=== PATIENT | female | born 1955 | race Caucasian/White ===

== ENCOUNTER 2022-03-30 13:33 | Outpatient (CLI) | payer MEDICARE, SELFPAY | END 2022-03-30 13:34 | disposition home or self-care (01) | LOC: AMB 04-11 04:43 | PROVIDERS: PCP Family Medicine; Visit Provider Family Medicine | DX: R53.1 Weakness (principal) | CPT/HCPCS: A0998 ==

== ENCOUNTER 2022-07-16 20:00 | Emergency (ER) | payer MEDICARE, SELFPAY ==
[2022-07-16 20:40] VITALS: BP 156/89; PULSE 91; RESP 20; TEMP 36.7; O2SAT 96; BMI 58.6
--- NOTE | 2022-07-16 20:54 | ED_ITS ---
HPI - Dental/Oral General Chief complaint: Dental/Oral/Mouth Injury/Pain Stated complaint: teeth pulled today, still bleeding Time Seen by Provider: 07/16/22 20:49 History of Present Illness HPI Narrative: Pt is a 67 year old woman who had a number of teeth pulled today and was fitted for dentures. Pt was sent home with her dentures in place but is now having bleeding from the extraction sites. Pt was unsure if she should leave her denturs in but is having trouble with the oozing blood. Pt does take aspirin 81 mg daily for DVT prophylaxis. Pt has no lightheadedness, fever, chills, chest pain or shortness of breath. Related Data Home Medications Medication Instructions Recorded Confirmed acetaminophen 500 mg tablet mg PO PRN 04/12/22 04/12/22 allopurinol 100 mg tablet mg PO DAILY 04/12/22 04/12/22 ascorbic acid (vitamin C) PO 04/12/22 04/12/22 aspirin 81 mg chewable tablet 81 mg PO BID 04/12/22 04/12/22 atorvastatin 40 mg tablet mg PO .Bedtime 04/12/22 04/12/22 beclomethasone dipropionate 40 2 inhalation DAILY 04/12/22 04/12/22 mcg/actuation HFA breath activated aerosol cephalexin 500 mg capsule mg PO ONCE 04/12/22 04/12/22 dulaglutide 1.5 mg/0.5 mL 1.5 mg subcut .Every 7 Days 04/12/22 04/12/22 subcutaneous pen injector duloxetine 20 mg capsule,delayed 60 mg PO DAILY 04/12/22 04/12/22 release ferrous sulfate 325 mg (65 mg mg PO DAILY 04/12/22 04/12/22 iron) tablet fluticasone propionate 50 2 intranasal DAILY 04/12/22 04/12/22 mcg/actuation nasal spray,suspension furosemide 20 mg tablet mg PO .Daily At 2:00PM 04/12/22 04/12/22 insulin aspart U-100 100 unit/mL 14 subcut 04/12/22 04/12/22 (3 mL) subcutaneous pen insulin glargine U-300 conc 300 52 unit subcut BID 04/12/22 04/12/22 unit/mL (1.5 mL) subcutaneous pen ketorolac 10 mg tablet mg PO PRN 04/12/22 04/12/22 losartan 50 mg tablet mg PO DAILY 04/12/22 04/12/22 meloxicam 7.5 mg tablet mg PO DAILY 04/12/22 04/12/22 montelukast 10 mg tablet 10 mg PO .Bedtime 04/12/22 04/12/22 oxycodone 5 mg tablet mg PO PRN 04/12/22 04/12/22 pregabalin 100 mg capsule mg PO TID 04/12/22 04/12/22 sennosides 8.6 mg-docusate sodium 1 PO BID 04/12/22 04/12/22 50 mg tablet vitamin A 2,400 mcg capsule 8,000 unit PO DAILY 04/12/22 04/12/22 zinc sulfate 50 mg zinc (220 mg) mg PO DAILY 04/12/22 04/12/22 capsule Previous Rx's Medication Instructions Recorded cephalexin 500 mg capsule 2,000 mg PO ONCE #4 caps 03/01/22 cephalexin 500 mg capsule 2,000 mg PO ONCE #12 caps 03/12/22 Allergies Allergy/AdvReac Type Severity Reaction Status Date / Time adhesive AdvReac Verified 04/12/22 09:35 lisinopril AdvReac Cough Verified 04/12/22 09:35 Penicillins AdvReac Verified 04/12/22 09:35 Sulfa (Sulfonamide AdvReac itchy Verified 04/12/22 09:35 Antibiotics) Review of Systems Status of ROS: Reports: 10 or more systems reviewed and unremarkable except as noted in History and below 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 Brother Prostate cancer Stroke Sister Myocardial infarction High blood pressure Social History Smoking Status: Former smoker Exam Narrative: Exam Narrative: EXAM GENERAL: Patient appears comfortable and well. EYES: No scleral icterus. Oral. Small amount of bleeding noted from extraction sites on her gums. THYROID: no thyroid nodules or thyromegaly. LYMPH: No supraclavicular or cervical lymphadenopathy. SKIN: Visible skin seen during exam normal or with benign process only. EXT: No dependent lower extremity pedal edema. HEART: Regular rate and rhythm with no murmurs, rubs, or gallops. LUNGS: Clear to auscultation bilaterally with no crackles or wheezes. ABD: Soft, non tender, non distended. PSYCH: Good eye contact, speech is not pressured. Const: Vital Signs, click to edit/add: Vital Signs - 24 hr 07/16/22 20:40 Temperature 98.1 F Pulse Rate [Bilate ral Pulse Oximeter ] 91 Respiratory Rate 20 Blood Pressure [Ri ght Upper Arm] 156/89 H Pulse Oximetry 96 Oxygen Delivery Me thod Room Air Course Course Hospital Course: Dentures removed. Direct pressure placed on the bleeding. Vital Signs Vital signs: Initial Vital Signs Temperature 98.1 F 07/16/22 20:40 Temperature Source Temporal Artery Scan 07/16/22 20:40 Pulse Rate 91 07/16/22 20:40 Respiratory Rate 20 07/16/22 20:40 Blood Pressure 156/89 H 07/16/22 20:40 Blood Pressure Mean 111 07/16/22 20:40 Blood Pressure Position Sitting 07/16/22 20:40 Pulse Oximetry 96 07/16/22 20:40 Oxygen Delivery Method 07/16/22 20:40 Vital Signs Temperature 98.1 F 07/16/22 20:40 Pulse Rate 91 07/16/22 20:40 Respiratory Rate 20 07/16/22 20:40 Blood Pressure 156/89 H 07/16/22 20:40 Pulse Oximetry 96 07/16/22 20:40 Oxygen Delivery Method 07/16/22 20:40 Temperature 98.1 F 07/16/22 20:40 Pulse Rate 91 07/16/22 20:40 Respiratory Rate 20 07/16/22 20:40 Blood Pressure 156/89 H 07/16/22 20:40 Pulse Oximetry 96 07/16/22 20:40 Oxygen Delivery Method 07/16/22 20:40 MDM - Dental/Oral MDM Narrative Medical decision making narrative: Pt has bleeding under her new dentures. Dentures removed. Direct pressure placed. Bleeding stopped. Pt will hold aspirin for 3 days. Leave dentures out until bleeding no longer an issue. Pt up to date on her Tdap. Differential Diagnosis Differential diagnosis: Likely gingival abscess, dental abscess and aphthous ulcer Discharge Plan Discharge Clinical Impression: Bleeding gums Patient Disposition: Home, Self-Care Condition: Stable Additional Instructions: Leave dentures out for a few days Direct pressure on bleeding sites Hold Aspirin for 3 days. Activity Level: Activity as Tolerated Discharge Diet: Regular Prescriptions: No Action beclomethasone dipropionate 40 mcg/actuation HFA aerosol breath activated 2 inhalation DAILY insulin glargine U-300 conc 300 unit/mL (1.5 mL) insulin pen 52 unit subcut BID dulaglutide 1.5 mg/0.5 mL pen injector 1.5 mg subcut .Every 7 Days Rx Instructions: pregabalin 100 mg capsule PO TID duloxetine 20 mg capsule,delayed release(DR/EC) 60 mg PO DAILY insulin aspart U-100 100 unit/mL (3 mL) insulin pen 14 subcut Rx Instructions: BREAKFAST AND SUPPER fluticasone propionate 50 mcg/actuation spray,suspension 2 intranasal DAILY furosemide 20 mg tablet PO .Daily At 2:00PM montelukast 10 mg tablet 10 mg PO .Bedtime aspirin 81 mg tablet,chewable 81 mg PO BID ferrous sulfate 325 mg (65 mg iron) tablet PO DAILY meloxicam 7.5 mg tablet PO DAILY acetaminophen 500 mg tablet PO PRN allopurinol 100 mg tablet PO DAILY vitamin A 2,400 mcg capsule 8,000 unit PO DAILY atorvastatin 40 mg tablet PO .Bedtime losartan 50 mg tablet PO DAILY cephalexin 500 mg capsule PO ONCE Rx Instructions: 4 tabs (2 grams) by mouth 1 hour prior to dental appointment ketorolac 10 mg tablet PO PRN oxycodone 5 mg tablet PO PRN Rx Instructions: As needed for pain: 2.5 mg mild-moderate pain, 5 mg severe. Minimize, wean-off, discontinue as soon as possible. sennosides-docusate sodium 8.6-50 mg tablet 1 PO BID Rx Instructions: Hold medication if experiencing loose stools. zinc sulfate 50 mg zinc (220 mg) capsule PO DAILY ascorbic acid (vitamin C) PO cephalexin 500 mg capsule 2,000 mg PO ONCE Qty: 4 3RF Rx Instructions: Take 4 capsules (2000mg) 1 hour prior to dental appointment. cephalexin 500 mg capsule 2,000 mg PO ONCE Qty: 12 2RF Rx Instructions: Take 4 capsules (2000mg) 1 hour prior to dental appointment. Follow Up/Referrals: Alondra Negrete MD [Primary Care Provider] - Stand Alone [facility]: [facility] Info Instructions
[2022-07-16 21:35] VITALS: BP 156/89; PULSE 91; RESP 20; TEMP 36.7
== END 2022-07-16 21:36 | disposition home or self-care (01) ==
LOC: ED 21:13
PROVIDERS: Emergency Provider Internal Medicine; PCP Family Medicine
DX: K91.840 Postprocedural hemorrhage of a digestive system organ or structure following a digestive system procedure (principal); Z79.82 Long term (current) use of aspirin; Z79.4 Long term (current) use of insulin; Z88.8 Allergy status to other drugs, medicaments and biological substances; Z88.0 Allergy status to penicillin; Z88.2 Allergy status to sulfonamides; Z86.718 Personal history of other venous thrombosis and embolism; Z87.891 Personal history of nicotine dependence
CPT/HCPCS: 99282; 99283

== ENCOUNTER 2022-09-04 08:04 | Outpatient (CLI) | payer MEDICARE, SELFPAY | END 2022-09-04 08:05 | disposition home or self-care (01) | LOC: INJ CL 08:05 | PROVIDERS: PCP Family Medicine; Visit Provider Family Medicine | DX: M54.16 Radiculopathy, lumbar region (principal); M51.36 Other intervertebral disc degeneration, lumbar region | CPT/HCPCS: 64483; J1100; Q9966 ==

== ENCOUNTER 2023-02-03 20:25 | Outpatient (CLI) | payer OTHER, SELFPAY | END 2023-02-03 20:26 | disposition home or self-care (01) | LOC: AMB 02-07 09:25 | PROVIDERS: PCP Family Medicine; Visit Provider Family Medicine | DX: M25.551 Pain in right hip (principal) | CPT/HCPCS: A0425; A0429 ==

== ENCOUNTER 2023-02-03 21:01 | Emergency (ER) | payer OTHER, SELFPAY ==
[2023-02-03 21:12] VITALS: BP 123/97; PULSE 72; RESP 16; TEMP 36.6; O2SAT 95; BMI 53.7
--- NOTE | 2023-02-03 21:23 | ED.BACK ---
HPI - Back Pain/Injury General Time Seen by Provider: 21:23 Date Seen: 02/03/23 Chief Complaint: Back Injury/Pain Stated Complaint: Sciatica Time Seen by Provider: 02/03/23 21:23 Source: patient, RN notes reviewed and old records reviewed Limitations: no limitations History of Present Illness HPI Narrative: Patient is a very pleasant 67-year-old female with a history of diabetes, lumbar spinal surgery in 2017 with persistent right footdrop who comes to the emergency room for evaluation regarding right low back and buttock pain. Patient notes that she has been doing very well and has lost 15 lb while walking and working out. She notes that she had a good day today and had no trauma or unusual activity. She was sitting in her easy chair at home and had the sudden onset of right low back and right buttock pain. It radiated into her lower buttock but not into her leg. She notes no numbness or tingling into the leg. She tried to get out of the chair was unable to do so and her family requested EMS to come and assist and thus she was brought here to the emergency room. She states that shins she has been here her pain has improved to a 7/10. She has not had any recent cough cold falls or otherwise. She does use a walker at home. She is requesting a check of her blood sugar as she states with her weight loss she is sometimes having low blood sugars at night. Patient notes lumbar surgery in 2017 and during that surgery there was injury to 1 of her nerves. She notes that she had wear brace because her foot would drop. She does agree that that has greatly improved since she has started walking. Related Data Home Medications Medication Instructions Recorded Confirmed acetaminophen 500 mg tablet mg PO PRN 04/12/22 04/12/22 allopurinol 100 mg tablet mg PO DAILY 04/12/22 04/12/22 ascorbic acid (vitamin C) PO 04/12/22 04/12/22 aspirin 81 mg chewable tablet 81 mg PO BID 04/12/22 04/12/22 atorvastatin 40 mg tablet mg PO .Bedtime 04/12/22 04/12/22 beclomethasone dipropionate 40 2 inhalation DAILY 04/12/22 04/12/22 mcg/actuation HFA breath activated aerosol cephalexin 500 mg capsule mg PO ONCE 04/12/22 04/12/22 dulaglutide 1.5 mg/0.5 mL 1.5 mg subcut .Every 7 Days 04/12/22 04/12/22 subcutaneous pen injector duloxetine 20 mg capsule,delayed 60 mg PO DAILY 04/12/22 04/12/22 release ferrous sulfate 325 mg (65 mg mg PO DAILY 04/12/22 04/12/22 iron) tablet fluticasone propionate 50 2 intranasal DAILY 04/12/22 04/12/22 mcg/actuation nasal spray,suspension furosemide 20 mg tablet mg PO .Daily At 2:00PM 04/12/22 04/12/22 insulin aspart U-100 100 unit/mL 14 subcut 04/12/22 04/12/22 (3 mL) subcutaneous pen insulin glargine U-300 conc 300 52 unit subcut BID 04/12/22 02/03/23 unit/mL (1.5 mL) subcutaneous pen ketorolac 10 mg tablet mg PO PRN 04/12/22 04/12/22 losartan 50 mg tablet mg PO DAILY 04/12/22 04/12/22 meloxicam 7.5 mg tablet mg PO DAILY 04/12/22 04/12/22 montelukast 10 mg tablet 10 mg PO .Bedtime 04/12/22 04/12/22 oxycodone 5 mg tablet mg PO PRN 04/12/22 04/12/22 pregabalin 100 mg capsule mg PO TID 04/12/22 04/12/22 sennosides 8.6 mg-docusate sodium 1 PO BID 04/12/22 04/12/22 50 mg tablet vitamin A 2,400 mcg capsule 8,000 unit PO DAILY 04/12/22 04/12/22 zinc sulfate 50 mg zinc (220 mg) mg PO DAILY 04/12/22 04/12/22 capsule acetaminophen 650 mg 1,300 mg PO BID 02/03/23 02/03/23 tablet,extended release allopurinol 300 mg tablet 300 mg PO DAILY 02/03/23 02/03/23 azelastine 137 mcg (0.1 %) nasal intranasal 02/03/23 spray aerosol blood sugar diagnostic (OneTouch 02/03/23 02/03/23 Verio test strips) buspirone 5 mg tablet 5 mg PO BID 02/03/23 02/03/23 capsaicin 0.075 % topical cream applic topical 02/03/23 (Arthritis Pain Relief (capsaicin)) cyanocobalamin (vitamin B-12) 1,000 mcg PO DAILY 02/03/23 02/03/23 1,000 mcg tablet (Vitamin B-12) dulaglutide 0.75 mg/0.5 mL 0.75 mg subcut 02/03/23 subcutaneous pen injector (Trulicity) duloxetine 60 mg capsule,delayed 60 mg PO DAILY 02/03/23 02/03/23 release loratadine 10 mg tablet 10 mg PO DAILY 02/03/23 02/03/23 pregabalin 150 mg capsule 150 mg PO 3XD 02/03/23 02/03/23 Previous Rx's Medication Instructions Recorded cephalexin 500 mg capsule 2,000 mg (4 x 500 mg) PO ONCE #4 03/01/22 caps cephalexin 500 mg capsule 2,000 mg (4 x 500 mg) PO ONCE #12 03/12/22 caps cephalexin 500 mg capsule 2,000 mg (4 x 500 mg) PO ONCE #4 12/07/22 caps Allergies Allergy/AdvReac Type Severity Reaction Status Date / Time adhesive AdvReac Verified 08/02/22 13:48 lisinopril AdvReac Cough Verified 08/02/22 13:48 Penicillins AdvReac Verified 08/02/22 13:48 Sulfa (Sulfonamide AdvReac itchy Verified 08/02/22 13:48 Antibiotics) UNLISTED ALLERGEN (INCLUDE Allergy Unknown Uncoded 08/02/22 13:48 DETAIL I Review of Systems Status of ROS: Reports: 6 or more systems reviewed and unremarkable except as noted in History and below Const: Reports: change in weight (Weight loss of 15 lb over the past month with exercise); Denies: fever or chills ENMT: Denies: neck pain Cardio: Denies: chest pain or shortness of breath with exertion Resp: Denies: shortness of breath GI: Denies: abdominal pain Musculo: Reports: back pain; Denies: neck pain, extremity pain or extremity swelling PFSH PFS Medical History Encounter for counseling regarding advance directives (08/11/16) ?Z71.89 - Other specified counseling (ICD-10) VTE (venous thromboembolism) (~2005) ?I82.90 - Acute embolism and thrombosis of unspecified vein (ICD-10) Depression ?F32.A - Depression, unspecified (ICD-10) Incontinence ?R32 - Unspecified urinary incontinence (ICD-10) DVT (deep venous thrombosis) ?I82.409 - Acute embolism and thrombosis of unspecified deep veins of unspecified lower extremity (ICD-10) Surgical History 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) ?Z98.890 - Other specified postprocedural states (ICD-10) History of arthroscopy of right shoulder (03/09/19) ?Z98.890 - Other specified postprocedural states (ICD-10) History of reverse total replacement of right shoulder joint (12/12/20) ?Z98.890 - Other specified postprocedural states (ICD-10) History of lumbar fusion ?Z98.1 - Arthrodesis status (ICD-10) History of total right knee replacement (12/18/06) ?Z96.651 - Presence of right artificial knee joint (ICD-10) H/O endoscopy ?Z98.890 - Other specified postprocedural states (ICD-10) History of cholecystectomy ?Z90.49 - Acquired absence of other specified parts of digestive tract (ICD-10) History of appendectomy ?Z90.49 - Acquired absence of other specified parts of digestive tract (ICD-10) History of total left knee replacement (07/17/06) ?Z96.652 - Presence of left artificial knee joint (ICD-10) Family History Mother Congenital heart disease Diabetes Father No problems noted. Brother Prostate cancer Stroke Sister Myocardial infarction High blood pressure Social History Smoking Status: Former smoker Do you use any of these nicotine containing products: None Second hand tobacco smoke exposure: No How often do you have a drink containing alcohol: never How often do you have six or more drinks on one occasion: Never AUDIT-C Alcohol total score: 0 Non-prescribed substance use: denies use service: No Exam Narrative: Exam Narrative: Jessica is alert and oriented. She is in no acute distress lying semi recumbent in room 5 tonight. Externally eyes ears nose clear. No respiratory distress. Abdomen soft. She has some mild tenderness noted over the us posterior superior iliac spine and into the buttock but no pain into the leg. Lower extremities are symmetrical. She has very subtle Gonzalez flexion weakness of the great toe otherwise ankle flexion extension symmetrical bilaterally. Const: Vital Signs, click to edit/add: Vital Signs - 24 hr 02/03/23 21:12 Temperature 97.9 F Pulse Rate [Pulse Oximeter] 72 Respiratory Rate 16 Blood Pressure [Ri ght Forearm] 123/97 H Pulse Oximetry 95 Oxygen Delivery Me thod Room Air Documenting provider has reviewed patient's vital signs: yes Course Course Hospital Course: Patient receptive of acetaminophen which she uses for discomfort. 1000 mg is ordered. Given her history of lumbar spine surgery will obtain x-rays of the lumbar spine and right hip. Reevaluation(s) Reevaluation #1: Patient to noted to be feeling much better. She is seen ambulating with a walker without difficulty and stating she is feeling even better. Vital Signs Vital signs: Initial Vital Signs Temperature 97.9 F 02/03/23 21:12 Temperature Source Temporal Artery Scan 02/03/23 21:12 Pulse Rate 72 02/03/23 21:12 Pulse Rhythm Regular 02/03/23 21:12 Pulse Strength 3+ Normal 02/03/23 21:12 Respiratory Rate 16 02/03/23 21:12 Blood Pressure 123/97 H 02/03/23 21:12 Blood Pressure Mean 105 02/03/23 21:12 Blood Pressure Position Semi-Fowlers 02/03/23 21:12 Pulse Oximetry 95 02/03/23 21:12 Oxygen Delivery Method Room Air 02/03/23 21:12 Vital Signs Temperature 97.9 F 02/03/23 21:12 Pulse Rate 72 02/03/23 21:12 Respiratory Rate 16 02/03/23 21:12 Blood Pressure 123/97 H 02/03/23 21:12 Pulse Oximetry 95 02/03/23 21:12 Oxygen Delivery Method Room Air 02/03/23 21:12 Temperature 97.9 F 02/03/23 21:12 Pulse Rate 72 02/03/23 21:12 Respiratory Rate 16 02/03/23 21:12 Blood Pressure 123/97 H 02/03/23 21:12 Pulse Oximetry 95 02/03/23 21:12 Oxygen Delivery Method Room Air 02/03/23 21:12 MDM - Back Pain/Injury MDM Narrative Medical decision making narrative: 1. Musculoskeletal pain-patient noted to be much improved after Tylenol. She has been up walking with the walker without difficulty. X-rays reassuring at this time. No evidence of radicular symptoms tonight. Recommend continued exercise. Avoid very soft chairs with no lumbar support. Tylenol as needed for discomfort. 2. Type 2 diabetes-normal blood sugar here tonight. Recommend eating prior to bedtime so that it does not fall lower. 3. Disposition-home at this time. Follow-up as planned. Return to the emergency room as needed. Did suggest using a rolled up blanket or towel in the crease of her lawn chair to provide extra lumbar support. Medical Records Attestation: I reviewed the patient's medical records. Imaging Data Lumbar x-ray: Attestation: I have reviewed the pertinent imaging results. My impression: Hardware noted without any acute findings. Radiologist's impression: Five lumbar vertebrae. Left convex lumbar curve. L3-L5 fusion with posterior stabilization hardware, bone graft material, and laminectomies. Fusion appears intact. Disc space narrowing T12-L1, L2-3, L5-S1. Right hip x-ray: Attestation: I have reviewed the pertinent imaging results. My impression: No evidence of fractures. Radiologist's impression: ones: Alignment is normal. No fractures or bone lesions. Internal fixation hardware in the lower lumbar spine. Joint spaces: Unremarkable.? Soft tissues: Unremarkable.? Impression: Negative. Discharge Plan Discharge Clinical Impression: Musculoskeletal back pain Patient Disposition: Home, Self-Care Condition: Improved Additional Instructions: Tylenol as needed for discomfort. Recommend temporary avoidance of lazy Boy chairs or very cushioned sofas. Seek medical attention for worsening symptoms. Follow up as scheduled this week. Return as needed. Prescriptions: No Action beclomethasone dipropionate 40 mcg/actuation HFA aerosol breath activated 2 inhalation DAILY insulin glargine U-300 conc 300 unit/mL (1.5 mL) insulin pen 52 unit subcut BID dulaglutide 1.5 mg/0.5 mL pen injector 1.5 mg subcut .Every 7 Days Rx Instructions: pregabalin 100 mg capsule PO TID duloxetine 20 mg capsule,delayed release(DR/EC) 60 mg PO DAILY insulin aspart U-100 100 unit/mL (3 mL) insulin pen 14 subcut Rx Instructions: BREAKFAST AND SUPPER fluticasone propionate 50 mcg/actuation spray,suspension 2 intranasal DAILY furosemide 20 mg tablet PO .Daily At 2:00PM montelukast 10 mg tablet 10 mg PO .Bedtime aspirin 81 mg tablet,chewable 81 mg PO BID ferrous sulfate 325 mg (65 mg iron) tablet PO DAILY meloxicam 7.5 mg tablet PO DAILY acetaminophen 500 mg tablet PO PRN allopurinol 100 mg tablet PO DAILY vitamin A 2,400 mcg capsule 8,000 unit PO DAILY atorvastatin 40 mg tablet PO .Bedtime losartan 50 mg tablet PO DAILY cephalexin 500 mg capsule PO ONCE Rx Instructions: 4 tabs (2 grams) by mouth 1 hour prior to dental appointment ketorolac 10 mg tablet PO PRN oxycodone 5 mg tablet PO PRN Rx Instructions: As needed for pain: 2.5 mg mild-moderate pain, 5 mg severe. Minimize, wean-off, discontinue as soon as possible. sennosides-docusate sodium 8.6-50 mg tablet 1 PO BID Rx Instructions: Hold medication if experiencing loose stools. zinc sulfate 50 mg zinc (220 mg) capsule PO DAILY ascorbic acid (vitamin C) PO buspirone 5 mg tablet 5 mg PO BID cyanocobalamin (vitamin B-12) [Vitamin B-12] 1,000 mcg tablet 1,000 mcg PO DAILY capsaicin [Arthritis Pain Relief(capsaic)] 0.075 % cream topical (DME) OneTouch Verio test strips Strip MISCELLANEOUS 3XD acetaminophen 650 mg tablet extended release 1,300 mg PO BID allopurinol 300 mg tablet 300 mg PO DAILY azelastine 137 mcg (0.1 %) aerosol,spray INTRANASAL Patient Comments: [NO ORIGINAL SIG] loratadine 10 mg tablet 10 mg PO DAILY duloxetine 60 mg capsule,delayed release(DR/EC) 60 mg PO DAILY pregabalin 150 mg capsule 150 mg PO 3XD Trulicity 0.75 mg/0.5 mL pen injector 0.75 mg subcut cephalexin 500 mg capsule 2,000 mg PO ONCE Qty: 4 3RF Rx Instructions: Take 4 capsules (2000mg) 1 hour prior to dental appointment. cephalexin 500 mg capsule 2,000 mg PO ONCE Qty: 12 2RF Rx Instructions: Take 4 capsules (2000mg) 1 hour prior to dental appointment. cephalexin 500 mg capsule 2,000 mg PO ONCE Qty: 4 3RF Rx Instructions: Take 4 capsules (2000mg) 1 hour prior to dental appointment. Follow Up/Referrals: Alondra Negrete MD [Primary Care Provider] - Stand Alone Forms: [employer] Info Instructions
--- NOTE | 2023-02-03 21:30 | CRLHL7_ITS ---
For Patients: As a result of the Century Cures Act, medical imaging exams and procedure reports are released immediately into your electronic medical record. You may view this report before your referring provider. If you have questions, please contact your health care provider. Indication: Sciatica Technique: Frontal view pelvis, 2 right Comparison: Nine Findings: Bones: Alignment is normal. No fractures or bone lesions. Internal fixation hardware in the lower lumbar spine. Joint spaces: Unremarkable. Soft tissues: Unremarkable. Impression: Negative. Dictated by Iraida Rdz MD @ 02/03/2023 10:44:51 PM (Electronically Signed)
--- NOTE | 2023-02-03 21:30 | CRLHL7_ITS ---
For Patients: As a result of the Cures Act, medical imaging exams and procedure reports are released immediately into your electronic medical record. You may view this report before your referring provider. If you have questions, please contact your health care provider. INDICATION: Sciatica. TECHNIQUE: Three views of the lumbar spine. FINDINGS: Five lumbar vertebrae. Left convex lumbar curve. L3-L5 fusion with posterior stabilization hardware, bone graft material, and laminectomies. Fusion appears intact. Disc space narrowing T12-L1, L2-3, L5-S1. Dictated by Justice Mendez MD @ 02/03/2023 11:01:26 PM (Electronically Signed)
[2023-02-03] MEDS: ACETAMINOPHEN 500 MG TABLET 1000 MG PO (21:41)
--- NOTE | 2023-02-03 22:29 | ED.NURSE ---
Pt assisted to walk around ER using walker. Pt tolerated ambulation and reports feeling much better. Dr. Tirado notified at [id number]. Pt's daughter also called while pt was ambulating and asked for an update. Verbal permission obtained from pt to speak with her daughter. Daughter was updated and all questions answered.
== END 2023-02-03 23:16 | disposition home or self-care (01) ==
PROVIDERS: Emergency Provider Family Medicine; PCP Family Medicine
DX: M54.9 Dorsalgia, unspecified (principal)
CPT/HCPCS: 72100; 73502; 82947; 82962; 99283; 99284; A9270

== ENCOUNTER 2023-11-26 09:07 | Emergency (ER) | payer OTHER, SELFPAY ==
[2023-11-26 09:18] VITALS: BP 147/69; PULSE 79; RESP 20; TEMP 36.6; O2SAT 97; BMI 53.8
--- NOTE | 2023-11-26 10:57 | ED_ITS ---
HPI - General Adult General Date Seen: 11/26/23 Chief complaint: Back Injury/Pain Stated complaint: right side sciatic pain Time Seen by Provider: 11/26/23 10:57 History of Present Illness HPI narrative: patient was triaged but LWBS Related Data Home Medications Medication Instructions Recorded Confirmed acetaminophen 500 mg tablet mg PO PRN 04/12/22 04/12/22 allopurinol 100 mg tablet mg PO DAILY 04/12/22 04/12/22 ascorbic acid (vitamin C) PO 04/12/22 04/12/22 aspirin 81 mg chewable tablet 81 mg PO BID 04/12/22 11/26/23 atorvastatin 40 mg tablet mg PO .Bedtime 04/12/22 04/12/22 beclomethasone dipropionate 40 2 inhalation DAILY 04/12/22 04/12/22 mcg/actuation HFA breath activated aerosol dulaglutide 1.5 mg/0.5 mL 1.5 mg subcut .Every 7 Days 04/12/22 04/12/22 subcutaneous pen injector duloxetine 20 mg capsule,delayed 60 mg PO DAILY 04/12/22 04/12/22 release ferrous sulfate 325 mg (65 mg mg PO DAILY 04/12/22 04/12/22 iron) tablet fluticasone propionate 50 2 intranasal DAILY 04/12/22 04/12/22 mcg/actuation nasal spray,suspension furosemide 20 mg tablet mg PO .Daily At 2:00PM 04/12/22 04/12/22 insulin aspart U-100 100 unit/mL 14 subcut 04/12/22 04/12/22 (3 mL) subcutaneous pen insulin glargine U-300 conc 300 52 unit subcut BID 04/12/22 02/03/23 unit/mL (1.5 mL) subcutaneous pen ketorolac 10 mg tablet mg PO PRN 04/12/22 04/12/22 losartan 50 mg tablet mg PO DAILY 04/12/22 04/12/22 meloxicam 7.5 mg tablet mg PO DAILY 04/12/22 04/12/22 montelukast 10 mg tablet 10 mg PO .Bedtime 04/12/22 11/26/23 oxycodone 5 mg tablet mg PO PRN 04/12/22 04/12/22 pregabalin 100 mg capsule mg PO TID 04/12/22 04/12/22 sennosides 8.6 mg-docusate sodium 1 PO BID 04/12/22 04/12/22 50 mg tablet vitamin A 2,400 mcg capsule 8,000 unit PO DAILY 04/12/22 04/12/22 zinc sulfate 50 mg zinc (220 mg) mg PO DAILY 04/12/22 04/12/22 capsule acetaminophen 650 mg 1,300 mg PO BID 02/03/23 02/03/23 tablet,extended release allopurinol 300 mg tablet 300 mg PO DAILY 02/03/23 02/03/23 azelastine 137 mcg (0.1 %) nasal intranasal 02/03/23 spray aerosol blood sugar diagnostic (OneTouch 02/03/23 02/03/23 Verio test strips) buspirone 5 mg tablet 5 mg PO BID 02/03/23 02/03/23 capsaicin 0.075 % topical cream applic topical 02/03/23 (Arthritis Pain Relief (capsaicin)) cyanocobalamin (vitamin B-12) 1,000 mcg PO DAILY 02/03/23 02/03/23 1,000 mcg tablet (Vitamin B-12) dulaglutide 0.75 mg/0.5 mL 0.75 mg subcut 02/03/23 subcutaneous pen injector (Trulicity) duloxetine 60 mg capsule,delayed 60 mg PO DAILY 02/03/23 11/26/23 release loratadine 10 mg tablet 10 mg PO DAILY 02/03/23 11/26/23 pregabalin 150 mg capsule 150 mg PO 3XD 02/03/23 11/26/23 Previous Rx's Medication Instructions Recorded cephalexin 500 mg capsule 2,000 mg (4 x 500 mg) PO ONCE #4 10/28/23 caps Allergies Allergy/AdvReac Type Severity Reaction Status Date / Time adhesive AdvReac Verified 08/02/22 13:48 lisinopril AdvReac Cough Verified 08/02/22 13:48 Penicillins AdvReac Verified 08/02/22 13:48 Sulfa (Sulfonamide AdvReac itchy Verified 08/02/22 13:48 Antibiotics) UNLISTED ALLERGEN (INCLUDE Allergy Unknown Uncoded 08/02/22 13:48 DETAIL I [facility] Medical History Encounter for counseling regarding advance directives (08/11/16) ?Z71.89 - Other specified counseling (ICD-10) VTE (venous thromboembolism) (~2005) ?I82.90 - Acute embolism and thrombosis of unspecified vein (ICD-10) Depression ?F32.A - Depression, unspecified (ICD-10) Incontinence ?R32 - Unspecified urinary incontinence (ICD-10) DVT (deep venous thrombosis) ?I82.409 - Acute embolism and thrombosis of unspecified deep veins of unspecified lower extremity (ICD-10) Surgical History 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) ?Z98.890 - Other specified postprocedural states (ICD-10) History of arthroscopy of right shoulder (03/09/19) ?Z98.890 - Other specified postprocedural states (ICD-10) History of reverse total replacement of right shoulder joint (12/12/20) ?Z98.890 - Other specified postprocedural states (ICD-10) History of lumbar fusion ?Z98.1 - Arthrodesis status (ICD-10) 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 Brother Prostate cancer Stroke Sister Myocardial infarction High blood pressure Social History Smoking Status: Former smoker Do you use any of these nicotine containing products: None Second hand tobacco smoke exposure: No How often do you have a drink containing alcohol: never How often do you have six or more drinks on one occasion: Never AUDIT-C Alcohol total score: 0 Non-prescribed substance use: denies use service: No Exam Const: Vital Signs, click to edit/add: Vital Signs - 24 hr 11/26/23 09:18 Temperature 98 F Pulse Rate [Pulse Oximeter] 79 Respiratory Rate 20 Blood Pressure [Ri ght Upper Arm] 147/69 H Pulse Oximetry 97 Oxygen Delivery Me thod Room Air Course Vital Signs Vital signs: Initial Vital Signs Temperature 98 F 11/26/23 09:18 Temperature Source Temporal Artery Scan 11/26/23 09:18 Pulse Rate 79 11/26/23 09:18 Respiratory Rate 20 11/26/23 09:18 Blood Pressure 147/69 H 11/26/23 09:18 Blood Pressure Mean 95 11/26/23 09:18 Blood Pressure Position Sitting 11/26/23 09:18 Pulse Oximetry 97 11/26/23 09:18 Oxygen Delivery Method Room Air 11/26/23 09:18 Vital Signs Temperature 98 F 11/26/23 09:18 Pulse Rate 79 11/26/23 09:18 Respiratory Rate 20 11/26/23 09:18 Blood Pressure 147/69 H 11/26/23 09:18 Pulse Oximetry 97 11/26/23 09:18 Oxygen Delivery Method Room Air 11/26/23 09:18 Temperature 98 F 11/26/23 09:18 Pulse Rate 79 11/26/23 09:18 Respiratory Rate 20 11/26/23 09:18 Blood Pressure 147/69 H 11/26/23 09:18 Pulse Oximetry 97 11/26/23 09:18 Oxygen Delivery Method Room Air 11/26/23 09:18 Discharge Plan Discharge Prescriptions: No Action beclomethasone dipropionate 40 mcg/actuation HFA aerosol breath activated 2 inhalation DAILY insulin glargine U-300 conc 300 unit/mL (1.5 mL) insulin pen 52 unit subcut BID dulaglutide 1.5 mg/0.5 mL pen injector 1.5 mg subcut .Every 7 Days Rx Instructions: pregabalin 100 mg capsule PO TID duloxetine 20 mg capsule,delayed release(DR/EC) 60 mg PO DAILY insulin aspart U-100 100 unit/mL (3 mL) insulin pen 14 subcut Rx Instructions: BREAKFAST AND SUPPER fluticasone propionate 50 mcg/actuation spray,suspension 2 intranasal DAILY furosemide 20 mg tablet PO .Daily At 2:00PM montelukast 10 mg tablet 10 mg PO .Bedtime aspirin 81 mg tablet,chewable 81 mg PO BID ferrous sulfate 325 mg (65 mg iron) tablet PO DAILY meloxicam 7.5 mg tablet PO DAILY acetaminophen 500 mg tablet PO PRN allopurinol 100 mg tablet PO DAILY vitamin A 2,400 mcg capsule 8,000 unit PO DAILY atorvastatin 40 mg tablet PO .Bedtime losartan 50 mg tablet PO DAILY ketorolac 10 mg tablet PO PRN oxycodone 5 mg tablet PO PRN Rx Instructions: As needed for pain: 2.5 mg mild-moderate pain, 5 mg severe. Minimize, wean-off, discontinue as soon as possible. sennosides-docusate sodium 8.6-50 mg tablet 1 PO BID Rx Instructions: Hold medication if experiencing loose stools. zinc sulfate 50 mg zinc (220 mg) capsule PO DAILY ascorbic acid (vitamin C) PO buspirone 5 mg tablet 5 mg PO BID cyanocobalamin (vitamin B-12) [Vitamin B-12] 1,000 mcg tablet 1,000 mcg PO DAILY capsaicin [Arthritis Pain Relief(capsaic)] 0.075 % cream topical (DME) OneTouch Verio test strips Strip MISCELLANEOUS 3XD acetaminophen 650 mg tablet extended release 1,300 mg PO BID allopurinol 300 mg tablet 300 mg PO DAILY azelastine 137 mcg (0.1 %) aerosol,spray INTRANASAL Patient Comments: [NO ORIGINAL SIG] loratadine 10 mg tablet 10 mg PO DAILY duloxetine 60 mg capsule,delayed release(DR/EC) 60 mg PO DAILY pregabalin 150 mg capsule 150 mg PO 3XD Trulicity 0.75 mg/0.5 mL pen injector 0.75 mg subcut cephalexin 500 mg capsule 2,000 mg PO ONCE Qty: 4 3RF Rx Instructions: Take 4 capsules (2000mg) 1 hour prior to dental appointment. Follow Up/Referrals: Alondra Negrete MD [Primary Care Provider] -
== END 2023-11-26 11:09 | disposition home or self-care (01) ==
LOC: ED 11:06
PROVIDERS: Emergency Provider Emergency Medicine; PCP Family Medicine
DX: M54.9 Dorsalgia, unspecified (principal)
CPT/HCPCS: 99281

== ENCOUNTER 2023-11-28 17:02 | Outpatient (CLI) | payer OTHER, SELFPAY | END 2023-11-28 17:03 | disposition home or self-care (01) | LOC: AMB 12-02 14:46 | PROVIDERS: PCP Family Medicine; Visit Provider Family Medicine | DX: M54.50 Low back pain, unspecified (principal); M54.16 Radiculopathy, lumbar region | CPT/HCPCS: A0425; A0427 ==

== ENCOUNTER 2023-11-28 17:35 | Emergency (ER) | payer OTHER, SELFPAY ==
[2023-11-28 17:52] VITALS: BP 149/72; PULSE 82; RESP 20; TEMP 37.1; O2SAT 96; BMI 55.7
--- NOTE | 2023-11-28 17:55 | ED.GENADULT ---
HPI - General Adult General Time Seen by Provider: 17:55 Date Seen: 11/28/23 Chief complaint: Extremity Pain/Injury, Lower Stated complaint: R leg pain Time Seen by Provider: 11/28/23 17:40 Source: patient, EMS and RN notes reviewed Mode of arrival: EMS Limitations: no limitations History of Present Illness HPI narrative: This 68-year-old female brought the ambulance in for severe right hip pain. She felt like her foot was maybe dragging earlier. She notes no numbness tingling. She has had the hip bothering her, points that is just the outside of the right hip. It is not radiated down the leg beyond maybe just the mid thigh. No numbness tingling, no bowel or bladder. No fevers or chills. No trauma. She did see her primary care provider, states her hip does show maybe a little degenerative change. She did go to [facility], they thought maybe her L5 nerve root might be impeded on based on x-ray imaging. She had an MRI today in [place] at [facility]. Patient cannot sleep on this hip, it is hurting on the outside of the hip to walk, hurts to sit on the outside of the hip, getting up and lifting the leg hurt on the outside of the hip. Pain is not radiating down the knee or down the leg. Patient did receive 50 mcg IM fentanyl by EMS, this is maybe slightly helped her pain. She has been diagnosed with sciatica. Related Data Home Medications Medication Instructions Recorded Confirmed acetaminophen 500 mg tablet mg PO PRN 04/12/22 04/12/22 allopurinol 100 mg tablet 100 mg PO DAILY 04/12/22 11/28/23 ascorbic acid (vitamin C) PO 04/12/22 04/12/22 aspirin 81 mg chewable tablet 81 mg PO DAILY 04/12/22 11/28/23 atorvastatin 40 mg tablet 40 mg PO .Bedtime 04/12/22 11/28/23 beclomethasone dipropionate 40 2 inhalation DAILY 04/12/22 04/12/22 mcg/actuation HFA breath activated aerosol dulaglutide 1.5 mg/0.5 mL 1.5 mg subcut .Every 7 Days 04/12/22 04/12/22 subcutaneous pen injector duloxetine 20 mg capsule,delayed 20 mg PO DAILY 08/25/22 04/11/24 release ferrous sulfate 325 mg (65 mg mg PO DAILY 04/12/22 04/12/22 iron) tablet fluticasone propionate 50 2 intranasal DAILY 04/12/22 04/12/22 mcg/actuation nasal spray,suspension furosemide 20 mg tablet 20 mg PO BID 04/12/22 11/28/23 insulin aspart U-100 100 unit/mL 14 subcut 04/12/22 04/12/22 (3 mL) subcutaneous pen insulin glargine U-300 conc 300 52 unit subcut BID 04/12/22 02/03/23 unit/mL (1.5 mL) subcutaneous pen ketorolac 10 mg tablet mg PO PRN 04/12/22 04/12/22 losartan 50 mg tablet 50 mg PO DAILY 04/12/22 11/28/23 meloxicam 7.5 mg tablet 7.5 mg PO DAILY 04/12/22 11/28/23 montelukast 10 mg tablet 10 mg PO .Bedtime 04/12/22 11/28/23 oxycodone 5 mg tablet mg PO PRN 04/12/22 04/12/22 pregabalin 100 mg capsule 100 mg PO TID 04/12/22 11/28/23 sennosides 8.6 mg-docusate sodium 1 PO BID 04/12/22 04/12/22 50 mg tablet vitamin A 2,400 mcg capsule 8,000 unit PO DAILY 04/12/22 04/12/22 zinc sulfate 50 mg zinc (220 mg) mg PO DAILY 04/12/22 04/12/22 capsule acetaminophen 650 mg 1,300 mg PO BID 02/03/23 02/03/23 tablet,extended release allopurinol 300 mg tablet 300 mg PO DAILY 02/03/23 02/03/23 azelastine 137 mcg (0.1 %) nasal intranasal 02/03/23 spray aerosol blood sugar diagnostic (OneTouch 02/03/23 02/03/23 Verio test strips) buspirone 5 mg tablet 5 mg PO BID 02/03/23 02/03/23 capsaicin 0.075 % topical cream applic topical 02/03/23 (Arthritis Pain Relief (capsaicin)) cyanocobalamin (vitamin B-12) 1,000 mcg PO DAILY 02/03/23 02/03/23 1,000 mcg tablet (Vitamin B-12) dulaglutide 0.75 mg/0.5 mL 0.75 mg subcut 02/03/23 subcutaneous pen injector (Trulicity) duloxetine 60 mg capsule,delayed 60 mg PO DAILY 02/03/23 11/26/23 release loratadine 10 mg tablet 10 mg PO DAILY 02/03/23 11/28/23 pregabalin 150 mg capsule 150 mg PO 3XD 02/03/23 11/26/23 Previous Rx's Medication Instructions Recorded cephalexin 500 mg capsule 2,000 mg (4 x 500 mg) PO ONCE #4 10/28/23 caps Allergies Allergy/AdvReac Type Severity Reaction Status Date / Time adhesive AdvReac Verified 11/28/23 17:52 lisinopril AdvReac Cough Verified 11/28/23 17:52 Penicillins AdvReac Verified 11/28/23 17:52 Sulfa (Sulfonamide AdvReac itchy Verified 11/28/23 17:52 Antibiotics) Review of Systems Status of ROS: Reports: 6 or more systems reviewed and unremarkable except as noted in History and below [facility] Medical History Fracture of fifth metatarsal bone ?S92.353A - Displaced fracture of fifth metatarsal bone, unspecified foot, initial encounter for closed fracture (ICD-10) Encounter for counseling regarding advance directives (08/11/16) ?Z71.89 - Other specified counseling (ICD-10) VTE (venous thromboembolism) (~2005) ?I82.90 - Acute embolism and thrombosis of unspecified vein (ICD-10) Depression ?F32.A - Depression, unspecified (ICD-10) Incontinence ?R32 - Unspecified urinary incontinence (ICD-10) DVT (deep venous thrombosis) ?I82.409 - Acute embolism and thrombosis of unspecified deep veins of unspecified lower extremity (ICD-10) Surgical History History of arthroscopy of right knee (09/30/95) ?Z98.890 - Other specified postprocedural states (ICD-10) Status post osteotomy (01/04/99) ?Z98.890 - Other specified postprocedural states (ICD-10) History of incision and drainage (01/09/07) ?Z98.890 - Other specified postprocedural states (ICD-10) H/O nasal septoplasty ?Z98.890 - Other specified postprocedural states (ICD-10) 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) ?Z98.890 - Other specified postprocedural states (ICD-10) History of arthroscopy of right shoulder (03/09/19) ?Z98.890 - Other specified postprocedural states (ICD-10) History of reverse total replacement of right shoulder joint (12/12/20) ?Z98.890 - Other specified postprocedural states (ICD-10) History of lumbar fusion (~2016) ?Z98.1 - Arthrodesis status (ICD-10) History of total right knee replacement (12/18/06) ?Z96.651 - Presence of right artificial knee joint (ICD-10) H/O endoscopy ?Z98.890 - Other specified postprocedural states (ICD-10) History of cholecystectomy ?Z90.49 - Acquired absence of other specified parts of digestive tract (ICD-10) History of appendectomy ?Z90.49 - Acquired absence of other specified parts of digestive tract (ICD-10) History of total left knee replacement (07/17/06) ?Z96.652 - Presence of left artificial knee joint (ICD-10) Family History Mother Congenital heart disease Diabetes Father No problems noted. Brother Prostate cancer Stroke Sister Myocardial infarction High blood pressure Social History Smoking Status: Former smoker Do you use any of these nicotine containing products: None Second hand tobacco smoke exposure: No How often do you have a drink containing alcohol: never How often do you have six or more drinks on one occasion: Never AUDIT-C Alcohol total score: 0 Non-prescribed substance use: denies use service: No Exam Const: Vital Signs, click to edit/add: Vital Signs - 24 hr 11/28/23 17:52 Temperature 98.8 F Pulse Rate [Pulse Oximeter] 82 Respiratory Rate 20 Blood Pressure [Le ft Forearm] 149/72 H Pulse Oximetry 96 Oxygen Delivery Me thod Room Air This 68-year-old female is alert, interactive, no apparent distress. She is seen in exam room 7, completely conversive. Pupils equal round, sclera clear, conjugate gaze. Able to speak in complete sentences. Lungs clear, no tachypnea. CV regular rate and rhythm, no murmur. Abdomen is obese but soft. She can lift each leg off the bed and hold for 3 seconds. Her strength throughout her lower extremities including ankle dorsiflexion and plantar flexion, big toe dorsiflexion plantar flexion are 5/5 and symmetric. She does have wraps on her lower extremities for edema. She has normal light touch sensation. She is point tender over her right greater trochanter. I can do range of motion with her hip and knee flexed at 90? and passive range of motion really is not problematic, just feels a little mild pain on the outside of the left hip/lateral hip pain. There is no overlying erythema. Exam seems to be consistent with isolated lateral right hip pain. Documenting provider has reviewed patient's vital signs: yes Course Course ED Course: This 68-year-old female seems to have more localized lateral hip pain consistent with greater trochanter pain syndrome, i.e. historically call trochanteric bursitis. We will see if we can get her MRI report from [facility]. Have discussed with her the possibility of considering injection, she would like to consider this. Reevaluation(s) Time of Reevaluation #1: 19:11 Reevaluation #1: We were unsuccessful in obtaining the MRI report, it has not been read yet. They were unable to get it read this evening. They were able to send images but I am not trained in MRI reading. Patient consent was obtained for injection of the greater trochanter as we really had no other a viable options to try to help her tonight. Risks, benefits and complications were reviewed. Patient does understand that this does have the potential to increase her sugars with her diabetes even if it is a localized injection. She states she watches them closely. Skin was sterilely prepped. Point of maximal tenderness was found with patient lying on her left side with her right hip up. A 20 gauge spinal needle was entered in this area, going down until touching bone, slightly withdrawn and 40 mg of methylprednisone and 5 mL of 1% lidocaine were easily injected. Patient states that she had almost immediate relief of pain. We are going to have the patient rest a bit, see how she ambulates in a while. Hopeful discharge to home if this continues to help. Time of Reevaluation #2: 20:34 Reevaluation #2: Nursing staff did ambulate patient, she did fine, had no hip pain. They did not note any footdrop. She was complaining of her foot turning somewhat, states she does do better when she has her shoes on at home which she does not have here. We are not seeing any footdrop, her motor examination is not revealing any need for any neurosurgical emergency evaluation. We will discharge her to home, await MRI report of her back. Vital Signs Vital signs: Initial Vital Signs Temperature 98.8 F 11/28/23 17:52 Temperature Source Temporal Artery Scan 11/28/23 17:52 Pulse Rate 82 11/28/23 17:52 Respiratory Rate 20 11/28/23 17:52 Blood Pressure 149/72 H 11/28/23 17:52 Blood Pressure Mean 97 11/28/23 17:52 Blood Pressure Position Semi-Fowlers 11/28/23 17:52 Pulse Oximetry 96 11/28/23 17:52 Oxygen Delivery Method Room Air 11/28/23 17:52 Vital Signs Temperature 98.8 F 11/28/23 17:52 Pulse Rate 82 11/28/23 17:52 Respiratory Rate 20 11/28/23 17:52 Blood Pressure 149/72 H 11/28/23 17:52 Pulse Oximetry 96 11/28/23 17:52 Oxygen Delivery Method Room Air 11/28/23 17:52 Temperature 98.8 F 11/28/23 17:52 Pulse Rate 82 11/28/23 17:52 Respiratory Rate 20 11/28/23 17:52 Blood Pressure 149/72 H 11/28/23 17:52 Pulse Oximetry 96 11/28/23 17:52 Oxygen Delivery Method Room Air 11/28/23 17:52 Medications Administered Medications: Discontinued Medications Generic Name Dose Route Start Last Admin Trade Name Freq PRN Reason Stop Dose Admin Lidocaine HCl 5 ml 11/28/23 18:30 11/28/23 19:19 Lidocaine 1% 5 Ml (Pf) 5 Ml Vial INJECTION 11/28/23 18:31 5 ml ONCE ONE Administration Methylprednisolone Sodium Succinate 40 mg 11/28/23 18:28 11/28/23 19:00 Methylprednisolone Sod Succ 40 Mg/Ml IM 11/28/23 18:29 40 mg ONCE ONE Administration Discharge Plan Discharge Clinical Impression: Trochanteric bursitis of right hip Patient Disposition: Home, Self-Care Condition: Stable Instructions: Hip Bursitis (ED) Additional Instructions: Await the MRI results of your back from the ordering facility. For your right hip, can try some ice on the outer aspect, Tylenol 1000 mg 3 times a day as needed for pain management. Do want you to schedule follow-up with your primary care provider within the next week for recheck. Activity Level: Activity as Tolerated Prescriptions: No Action beclomethasone dipropionate 40 mcg/actuation HFA aerosol breath activated 2 inhalation DAILY insulin glargine U-300 conc 300 unit/mL (1.5 mL) insulin pen 52 unit subcut BID dulaglutide 1.5 mg/0.5 mL pen injector 1.5 mg subcut .Every 7 Days Rx Instructions: pregabalin 100 mg capsule 100 mg PO TID duloxetine 20 mg capsule,delayed release(DR/EC) 20 mg PO DAILY insulin aspart U-100 100 unit/mL (3 mL) insulin pen 14 subcut Rx Instructions: BREAKFAST AND SUPPER fluticasone propionate 50 mcg/actuation spray,suspension 2 intranasal DAILY furosemide 20 mg tablet 20 mg PO BID montelukast 10 mg tablet 10 mg PO .Bedtime aspirin 81 mg tablet,chewable 81 mg PO DAILY ferrous sulfate 325 mg (65 mg iron) tablet PO DAILY meloxicam 7.5 mg tablet 7.5 mg PO DAILY acetaminophen 500 mg tablet PO PRN allopurinol 100 mg tablet 100 mg PO DAILY vitamin A 2,400 mcg capsule 8,000 unit PO DAILY atorvastatin 40 mg tablet 40 mg PO .Bedtime losartan 50 mg tablet 50 mg PO DAILY ketorolac 10 mg tablet PO PRN oxycodone 5 mg tablet PO PRN Rx Instructions: As needed for pain: 2.5 mg mild-moderate pain, 5 mg severe. Minimize, wean-off, discontinue as soon as possible. sennosides-docusate sodium 8.6-50 mg tablet 1 PO BID Rx Instructions: Hold medication if experiencing loose stools. zinc sulfate 50 mg zinc (220 mg) capsule PO DAILY ascorbic acid (vitamin C) PO buspirone 5 mg tablet 5 mg PO BID cyanocobalamin (vitamin B-12) [Vitamin B-12] 1,000 mcg tablet 1,000 mcg PO DAILY capsaicin [Arthritis Pain Relief(capsaic)] 0.075 % cream topical (DME) OneTouch Verio test strips Strip MISCELLANEOUS 3XD acetaminophen 650 mg tablet extended release 1,300 mg PO BID allopurinol 300 mg tablet 300 mg PO DAILY azelastine 137 mcg (0.1 %) aerosol,spray INTRANASAL Patient Comments: [NO ORIGINAL SIG] loratadine 10 mg tablet 10 mg PO DAILY duloxetine 60 mg capsule,delayed release(DR/EC) 60 mg PO DAILY pregabalin 150 mg capsule 150 mg PO 3XD Trulicity 0.75 mg/0.5 mL pen injector 0.75 mg subcut cephalexin 500 mg capsule 2,000 mg PO ONCE Qty: 4 3RF Rx Instructions: Take 4 capsules (2000mg) 1 hour prior to dental appointment. Follow Up/Referrals: Alondra Negrete MD [Primary Care Provider] - Stand Alone Forms: [facility] Info Instructions
[2023-11-28] MEDS: METHYLPREDNISOLONE SOD SUCC 40 MG/ML IM (19:00)
[2023-11-28] MEDS: LIDOCAINE 1% 5 ml (pf) 5 ML VIAL INJECTION (19:19)
== END 2023-11-28 20:59 | disposition home or self-care (01) ==
PROVIDERS: Emergency Provider Family Medicine; PCP Family Medicine
DX: M70.61 Trochanteric bursitis, right hip (principal)
CPT/HCPCS: 20610; 82962; 99283; J2919

== ENCOUNTER 2024-02-14 14:17 | Outpatient (RCR) | payer MEDICAID, SELFPAY | END 2025-01-17 10:29 | disposition home or self-care (01) | LOC: MOW 14:17 | PROVIDERS: PCP Family Medicine; Visit Provider Family Medicine | DX: Z76.0 Encounter for issue of repeat prescription (principal) | CPT/HCPCS: S5170 ==

== ENCOUNTER 2024-04-25 11:57 | Emergency (ER) | payer OTHER, SELFPAY ==
[2024-04-25 12:08] VITALS: BP 131/75; PULSE 97; RESP 18; TEMP 36.5; O2SAT 95; BMI 50.6
--- NOTE | 2024-04-25 12:20 | ED_ITS ---
HPI - General Adult General Chief complaint: Diarrhea Stated complaint: Diarrhea Time Seen by Provider: 04/25/24 12:07 History of Present Illness HPI narrative: Patient is a 68-year-old woman who has been having diarrhea intermittently this week. She had 1st 4 days ago and then none for 2 days and then a fzzp-bz-zvrtqmrl diarrhea yesterday and then today a single episode of loose stool. Patient has had no recent travel. She has had no blood in her stool she has no abdominal pain no fevers no chills. She is eating and drinking normally. Patient lives independently. She has had no recent sick contacts. He does not suffer from chronic diarrhea. Again no discomfort and no further symptoms at this time. Related Data Home Medications ?Medication ?Instructions ?Recorded ?Confirmed acetaminophen 500 mg tablet mg PO PRN 04/12/22 04/12/22 allopurinol 100 mg tablet 100 mg PO DAILY 04/12/22 11/28/23 ascorbic acid (vitamin C) PO 04/12/22 04/12/22 aspirin 81 mg chewable tablet 81 mg PO DAILY 04/12/22 11/28/23 atorvastatin 40 mg tablet 40 mg PO .Bedtime 04/12/22 11/28/23 beclomethasone dipropionate 40 2 inhalation DAILY 04/12/22 04/12/22 mcg/actuation HFA breath activated aerosol dulaglutide 1.5 mg/0.5 mL 1.5 mg subcut .Every 7 Days 04/12/22 04/12/22 subcutaneous pen injector duloxetine 20 mg capsule,delayed 20 mg PO DAILY 04/12/22 11/28/23 release ferrous sulfate 325 mg (65 mg mg PO DAILY 04/12/22 04/12/22 iron) tablet fluticasone propionate 50 2 intranasal DAILY 04/12/22 04/12/22 mcg/actuation nasal spray,suspension furosemide 20 mg tablet 20 mg PO BID 04/12/22 11/28/23 insulin aspart U-100 100 unit/mL 14 subcut 04/12/22 04/12/22 (3 mL) subcutaneous pen insulin glargine U-300 conc 300 52 unit subcut BID 04/12/22 02/03/23 unit/mL (1.5 mL) subcutaneous pen ketorolac 10 mg tablet mg PO PRN 04/12/22 04/12/22 losartan 50 mg tablet 50 mg PO DAILY 04/12/22 11/28/23 meloxicam 7.5 mg tablet 7.5 mg PO DAILY 04/12/22 11/28/23 montelukast 10 mg tablet 10 mg PO .Bedtime 04/12/22 11/28/23 oxycodone 5 mg tablet mg PO PRN 04/12/22 04/12/22 pregabalin 100 mg capsule 100 mg PO TID 04/12/22 11/28/23 sennosides 8.6 mg-docusate sodium 1 PO BID 04/12/22 04/12/22 50 mg tablet vitamin A 2,400 mcg capsule 8,000 unit PO DAILY 04/12/22 04/12/22 zinc sulfate 50 mg zinc (220 mg) mg PO DAILY 04/12/22 04/12/22 capsule acetaminophen 650 mg 1,300 mg PO BID 02/03/23 02/03/23 tablet,extended release allopurinol 300 mg tablet 300 mg PO DAILY 02/03/23 02/03/23 azelastine 137 mcg (0.1 %) nasal intranasal 02/03/23 spray blood sugar diagnostic (OneTouch 02/03/23 02/03/23 Verio test strips) buspirone 5 mg tablet 5 mg PO BID 02/03/23 02/03/23 capsaicin 0.075 % topical cream applic topical 02/03/23 (Arthritis Pain Relief (capsaicin)) cyanocobalamin (vitamin B-12) 1,000 mcg PO DAILY 02/03/23 02/03/23 1,000 mcg tablet (Vitamin B-12) dulaglutide 0.75 mg/0.5 mL 0.75 mg subcut 02/03/23 subcutaneous pen injector (Trulicity) duloxetine 60 mg capsule,delayed 60 mg PO DAILY 02/03/23 11/26/23 release loratadine 10 mg tablet 10 mg PO DAILY 02/03/23 11/28/23 pregabalin 150 mg capsule 150 mg PO 3XD 02/03/23 11/26/23 Previous Rx's ?Medication ?Instructions ?Recorded cephalexin 500 mg capsule 2,000 mg (4 x 500 mg) PO ONCE #4 10/28/23 caps loperamide 2 mg capsule (Imodium 2 mg PO QID PRN loose stool #30 04/25/24 A-D) caps Allergies Allergy/AdvReac Type Severity Reaction Status Date / Time adhesive AdvReac Verified 04/25/24 12:12 lisinopril AdvReac Cough Verified 04/25/24 12:12 Penicillins AdvReac Verified 04/25/24 12:12 Sulfa (Sulfonamide AdvReac itchy Verified 04/25/24 12:12 Antibiotics) PFSH PFSH Medical History Fracture of fifth metatarsal bone ?S92.353A - Displaced fracture of fifth metatarsal bone, unspecified foot, initial encounter for closed fracture (ICD-10) Encounter for counseling regarding advance directives (08/11/16) ?Z71.89 - Other specified counseling (ICD-10) VTE (venous thromboembolism) (~2005) ?I82.90 - Acute embolism and thrombosis of unspecified vein (ICD-10) Depression ?F32.A - Depression, unspecified (ICD-10) Incontinence ?R32 - Unspecified urinary incontinence (ICD-10) DVT (deep venous thrombosis) ?I82.409 - Acute embolism and thrombosis of unspecified deep veins of unspecified lower extremity (ICD-10) Surgical History History of arthroscopy of right knee (09/30/95) ?Z98.890 - Other specified postprocedural states (ICD-10) Status post osteotomy (01/04/99) ?Z98.890 - Other specified postprocedural states (ICD-10) History of incision and drainage (01/09/07) ?Z98.890 - Other specified postprocedural states (ICD-10) H/O nasal septoplasty ?Z98.890 - Other specified postprocedural states (ICD-10) 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) ?Z98.890 - Other specified postprocedural states (ICD-10) History of arthroscopy of right shoulder (03/09/19) ?Z98.890 - Other specified postprocedural states (ICD-10) History of reverse total replacement of right shoulder joint (12/12/20) ?Z98.890 - Other specified postprocedural states (ICD-10) History of lumbar fusion (~2016) ?Z98.1 - Arthrodesis status (ICD-10) 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 Brother Prostate cancer Stroke Sister Myocardial infarction High blood pressure Social History Smoking Status: Former smoker Do you use any of these nicotine containing products: None Second hand tobacco smoke exposure: No How often do you have a drink containing alcohol: never How often do you have six or more drinks on one occasion: Never AUDIT-C Alcohol total score: 0 Non-prescribed substance use: denies use service: No Exam Narrative: Exam Narrative: EXAM GENERAL: Patient appears comfortable and well. EYES: No scleral icterus. LYMPH: No supraclavicular or cervical lymphadenopathy. SKIN: Visible skin seen during exam normal or with benign process only. EXT: No dependent lower extremity pedal edema. HEART: Regular rate and rhythm with no murmurs, rubs, or gallops. LUNGS: Clear to auscultation bilaterally with no crackles or wheezes. ABD: Soft, non tender, non distended. PSYCH: Good eye contact, speech is not pressured. Const: Vital Signs, click to edit/add: Vital Signs - 24 hr 04/25/24 12:08 Temperature 97.7 F Pulse Rate [Left P ulse Oximeter] 97 Respiratory Rate 18 Blood Pressure [Ri ght Forearm] 131/75 Pulse Oximetry 95 Oxygen Delivery Me thod Room Air Course Course ED Course: Patient seen and examined. Vital Signs Vital signs: Initial Vital Signs Temperature 97.7 F 04/25/24 12:08 Temperature Source Oral 04/25/24 12:08 Pulse Rate 97 04/25/24 12:08 Respiratory Rate 18 04/25/24 12:08 Blood Pressure 131/75 04/25/24 12:08 Blood Pressure Mean 93 04/25/24 12:08 Blood Pressure Position Sitting 04/25/24 12:08 Pulse Oximetry 95 04/25/24 12:08 Oxygen Delivery Method Room Air 04/25/24 12:08 Vital Signs Temperature 97.7 F 04/25/24 12:08 Pulse Rate 97 04/25/24 12:08 Respiratory Rate 18 04/25/24 12:08 Blood Pressure 131/75 04/25/24 12:08 Pulse Oximetry 95 04/25/24 12:08 Oxygen Delivery Method Room Air 04/25/24 12:08 Temperature 97.7 F 04/25/24 12:08 Pulse Rate 97 04/25/24 12:08 Respiratory Rate 18 04/25/24 12:08 Blood Pressure 131/75 04/25/24 12:08 Pulse Oximetry 95 04/25/24 12:08 Oxygen Delivery Method Room Air 04/25/24 12:08 Medical Decision Making MDM Narrative Medical decision making narrative: Patient is a 68-year-old woman who presents with intermittent diarrhea this week. She has really no in if he can not signs of dehydration her metabolic abnormalities. She states she otherwise feels well has had no further loose stools today as the day has progressed. I do not believe she needs stool study or lab work. I do think she can take a limited amount of Imodium which should help. She has had no recent antibiotic exposure. If she has further difficulties and recommend primary care follow-up. Discharge Plan Discharge Clinical Impression: Loose stools Patient Disposition: Home, Self-Care Condition: Stable Instructions: Acute Diarrhea (ED) Additional Instructions: Continue with hydration Imodium 1 tablet after each loose stool up to 4 times per day Follow-up with your doctor as needed. Activity Level: No Restrictions Discharge Diet: Regular Prescriptions: New loperamide [Imodium A-D] 2 mg capsule 2 mg PO QID PRN (Reason: loose stool) Qty: 30 0RF No Action beclomethasone dipropionate 40 mcg/actuation HFA aerosol breath activated 2 inhalation DAILY insulin glargine U-300 conc 300 unit/mL (1.5 mL) insulin pen 52 unit subcut BID dulaglutide 1.5 mg/0.5 mL pen injector 1.5 mg subcut .Every 7 Days Rx Instructions: pregabalin 100 mg capsule 100 mg PO TID duloxetine 20 mg capsule,delayed release(DR/EC) 20 mg PO DAILY insulin aspart U-100 100 unit/mL (3 mL) insulin pen 14 subcut Rx Instructions: BREAKFAST AND SUPPER fluticasone propionate 50 mcg/actuation spray,suspension 2 intranasal DAILY furosemide 20 mg tablet 20 mg PO BID montelukast 10 mg tablet 10 mg PO .Bedtime aspirin 81 mg tablet,chewable 81 mg PO DAILY ferrous sulfate 325 mg (65 mg iron) tablet PO DAILY meloxicam 7.5 mg tablet 7.5 mg PO DAILY acetaminophen 500 mg tablet PO PRN allopurinol 100 mg tablet 100 mg PO DAILY vitamin A 2,400 mcg capsule 8,000 unit PO DAILY atorvastatin 40 mg tablet 40 mg PO .Bedtime losartan 50 mg tablet 50 mg PO DAILY ketorolac 10 mg tablet PO PRN oxycodone 5 mg tablet PO PRN Rx Instructions: As needed for pain: 2.5 mg mild-moderate pain, 5 mg severe. Minimize, wean-off, discontinue as soon as possible. sennosides-docusate sodium 8.6-50 mg tablet 1 PO BID Rx Instructions: Hold medication if experiencing loose stools. zinc sulfate 50 mg zinc (220 mg) capsule PO DAILY ascorbic acid (vitamin C) PO buspirone 5 mg tablet 5 mg PO BID cyanocobalamin (vitamin B-12) [Vitamin B-12] 1,000 mcg tablet 1,000 mcg PO DAILY capsaicin [Arthritis Pain Relief(capsaic)] 0.075 % cream topical (DME) OneTouch Verio test strips Strip MISCELLANEOUS 3XD acetaminophen 650 mg tablet extended release 1,300 mg PO BID allopurinol 300 mg tablet 300 mg PO DAILY azelastine 137 mcg (0.1 %) aerosol,spray INTRANASAL Patient Comments: [NO ORIGINAL SIG] loratadine 10 mg tablet 10 mg PO DAILY duloxetine 60 mg capsule,delayed release(DR/EC) 60 mg PO DAILY pregabalin 150 mg capsule 150 mg PO 3XD Trulicity 0.75 mg/0.5 mL pen injector 0.75 mg subcut cephalexin 500 mg capsule 2,000 mg PO ONCE Qty: 4 3RF Rx Instructions: Take 4 capsules (2000mg) 1 hour prior to dental appointment. Follow Up/Referrals: Alondra Negrete MD [Primary Care Provider] - Stand Alone Forms: [facility] Info Instructions
== END 2024-04-25 13:02 | disposition home or self-care (01) ==
LOC: ED 12:30
PROVIDERS: Emergency Provider Internal Medicine; PCP Family Medicine
DX: R19.7 Diarrhea, unspecified (principal)
CPT/HCPCS: 99283

== ENCOUNTER 2024-04-28 09:18 | Outpatient (CLI) | payer OTHER, SELFPAY | END 2024-04-28 09:19 | disposition home or self-care (01) | LOC: INJ CL 09:20 | PROVIDERS: PCP Family Medicine; Visit Provider Family Medicine | DX: M54.16 Radiculopathy, lumbar region (principal); M51.36 Other intervertebral disc degeneration, lumbar region | CPT/HCPCS: 64483; J1100; Q9966 ==

== ENCOUNTER 2024-12-10 22:14 | Emergency (ER) | payer OTHER, SELFPAY ==
--- OUTSIDE RECORDS SUMMARY | 2024-12-10 22:16 | XMS_ITS | Clinical Summary ---
Author Organization [facility] Address [address] , [address] [place] [address] Phone Care Team Providers Care Supervisor [employer] Name Role Phone Print, Print Unavailable Conditions or Problems Problem Name Problem Code Onset Date Status Entry Date Provider Comment Standard Description Annotate Cancer metastatic to bone 76900630 (SNOMED CT) 10/12 Resolved 10/12 Marcela Hicks PA-C Metastatic malignant neoplasm to bone Cancer metastatic to bone 50388051 (SNOMED CT) 10/12 Removed 10/12 Shruthi Cluka [employer]DBOARD COATING MACHINE OPERATOR (AAMA) Metastatic malignant neoplasm to bone Kidney mass 095743392 (SNOMED CT) 10/12 Active 10/12 Shruthi Cluka HARDBOARD COATING MACHINE OPERATOR (AAMA) Renal mass Abnormal magnetic resonance imaging (MRI) 253021249 (SNOMED CT) 10/12 Active 10/12 Shruthi Cluka HARDBOARD COATING MACHINE OPERATOR (AAMA) MRI scan abnormal Low back pain, chronic 832754392 (SNOMED CT) 09/27 Active 09/27 Rosy Button-Jackie gher HARDBOARD COATING MACHINE OPERATOR Chronic low back pain Lumbar radiculopat hy, right 139826918 (SNOMED CT) 09/27 Active 09/27 Rosy Button-Jackie gher HARDBOARD COATING MACHINE OPERATOR Lumbar radiculopathy Diabetic peripheral neuropathy associated with type 2 diabetes mellitus [id number] 07 (SNOMED CT) 10/31 Active 10/31 Elise Mancuso PA-C Peripheral neuropathy due to type 2 diabetes mellitus Leg pain 65212484 (SNOMED CT) 10/04 Active 10/04 Nathan Brock MD Pain in lower limb [facility], [facility] 10/04 Active 10/04 Nathan Brock MD Carpal tunnel syndrome Medications Medication Instructions Start Date Stop Date Generic Name NDC Provider DULOXETINE HCL 60 MG CPEP TAKE ONE CAPSULE BY MOUTH EVERY DAY duloxetine [id number] Marcela MUNGUIA-Letitia DULOXETINE HCL 60 MG CPEP TAKE ONE CAPSULE BY MOUTH ONCE DAILY duloxetine 46531240283 Marcela MUNGUIA-[place] DULOXETINE HCL 60 MG CPEP 60 mg by mouth once a day duloxetine 95248322446 Zofia MUNGUIA-Letitia DULOXETINE HCL 60 MG CPEP TAKE ONE CAPSULE BY MOUTH EVERY DAY duloxetine 09592006284 Zofia Fernandez PA-C PREGABALIN 150 MG CAPS Take 1 cap (150 mg) by mouth three times a day. pregabalin 50894586025 Marcela Hicks PA-C PREGABALIN 150 MG CAPS TAKE ONE CAPSULE BY MOUTH THREE TIMES A DAY pregabalin 06043014600 Nathan Brock MD PREGABALIN 150 MG CAPS Take 1 cap (150 mg) by mouth three times a day. pregabalin 16073032861 Marcela Hicks PA-C PREGABALIN 100 MG CAPS pregabalin 06515449378 Nathan Brock MD DULOXETINE HCL 30 MG CPEP duloxetine 29064405203 Nathan Brock MD DULOXETINE HCL 60 MG CPEP 60 mg by mouth once a day duloxetine 43568179095 Nathan Brock MD DULOXETINE HCL 20 MG CPEP duloxetine 74248655894 Nathan Brock MD FLUOXETINE HCL 20 MG CAPS fluoxetine 86579268224 Nathan Brock MD LOSARTAN POTASSIUM-HCTZ 50-12.5 MG TABS losartan-hydroc hlorothiazide 06740800138 Nathan Brock MD Novolog U-100 Insulin aspart 100 unit/mL solution insulin aspart u-100 [id number] Ntahan Brock MD ATORVASTATIN CALCIUM 40 MG TABS atorvastatin 46429968621 Nathan Brock MD LANTUS SOLOSTAR 100 UNIT/ML SOPN insulin glargine 98179310945 Nathan Brock MD FERROUS SULFATE 325 (65 Fe) MG TABS ferrous sulfate 13973314333 Nathan Brock MD AMLODIPINE BESYLATE 5 MG TABS amlodipine 55525246743 Nathan Brock MD METFORMIN HCL 1000 MG TABS metformin 87592712011 Nathan Brock MD GABAPENTIN 300 MG CAPS 600 mg TID gabapentin 76667650560 Nathan Brock MD FLUOXETINE HCL 40 MG CAPS fluoxetine 45876878344 Nathan Brock MD TRULICITY 0.75 MG/0.5ML SOAJ dulaglutide 30378262477 Nathan Brock MD LYRICA 50 MG CAPS 1 cap by mouth two times per day for diabetic peripheral neuropathy. pregabalin 79981481378 Nathan Brock MD TRULICITY 3 MG/0.5ML SOAJ dulaglutide 55394654630 Nathan Brock MD TOUJEO SOLOSTAR 300 UNIT/ML SOPN insulin glargine u-300 conc 59734913814 Nathan Brock MD FEROSUL 325 (65 Fe) MG TABS ferrous sulfate 36212051862 Nathan Brock MD PREGABALIN 100 MG CAPS pregabalin 56794998211 Nathan Brock MD DULOXETINE HCL 20 MG CPEP duloxetine 74808733439 Nathan Brock MD DULOXETINE HCL 30 MG CPEP duloxetine 91536424712 Nathan Brock MD FLUOXETINE HCL 20 MG CAPS fluoxetine 56762607250 Nathan Brock MD FUROSEMIDE 20 MG TABS furosemide 33594941631 Nathan Brock MD aspirin 81 mg tablet,chewable aspirin 10246295728 Nathan Brock MD LORATADINE 10 MG TABS loratadine 58426319274 Nathan Brock MD FLUTICASONE PROPIONATE 50 MCG/ACT SUSP fluticasone propionate 06651490612 Nathan Brock MD AZELASTINE HCL 0.1 % SOLN azelastine 15881617148 Nathan Brock MD MONTELUKAST SODIUM 10 MG TABS montelukast 83203050102 Nathan Brock MD ALLOPURINOL 100 MG TABS allopurinol 51108075032 Nathan Brock MD LOSARTAN POTASSIUM 50 MG TABS losartan 64607969478 Nathan Brock MD ATORVASTATIN CALCIUM 40 MG TABS atorvastatin 83822324147 Nathan Brock MD LYRICA 50 MG CAPS 1 cap by mouth two times per day for diabetic peripheral neuropathy. PREGABALIN 71640985604 Elise Mancuso PA-C GABAPENTIN 300 MG CAPS 600 mg TID GABAPENTIN 85545468872 Nathan Brock MD GABAPENTIN 300 MG CAPS 1 cap by mouth three times per day for peripheral neuropathy. GABAPENTIN 64611326019 Elise Mancuso PA-C LOSARTAN POTASSIUM-HCTZ 50-12.5 MG TABS LOSARTAN POTASSIUM-HCTZ 12835265352 Nathan rBock MD AMLODIPINE BESYLATE 5 MG TABS AMLODIPINE BESYLATE 27780747733 Nathan Brock MD NOVOLOG 100 UNIT/ML SUBCUTANEOUS SOLUTION INSULIN ASPART 49085844338 Nathan Brock MD METFORMIN HCL 1000 MG TABS METFORMIN HCL 56053696391 Nathan Brock MD FLUOXETINE HCL 40 MG CAPS FLUOXETINE HCL 20333926427 Nathan Brock MD ATORVASTATIN CALCIUM 40 MG TABS ATORVASTATIN CALCIUM 62476539696 Nathan Brock MD TRULICITY 0.75 MG/0.5ML SOAJ DULAGLUTIDE 72644921350 Nathan Brock MD LANTUS SOLOSTAR 100 UNIT/ML SOPN INSULIN GLARGINE 30714112871 Nathan Brock MD GABAPENTIN 300 MG CAPS GABAPENTIN 88125806693 Nathan Brock MD FERROUS SULFATE 325 (65 Fe) MG TABS FERROUS SULFATE 28170998897 Nathan Brock MD Medications Administered No information available. Allergies, Adverse Reactions, Alerts Allergy Name Reaction Description Start Date Severity Statu s Provider SULFA Moderate Active Nathan Brock MD PENICILLIN Moderate Active Nathan Brock MD LISINOPRIL Mild Active Nathan Brock MD Results Date Name Value Unit Range Flag Description Office Visit: UPPER/LOWER EX T [place]INGL[place] 10/04/15 07:44- 10/04/15 07:44 RE... SMOK STATUS former smoker Tob acco smoking status Internal Other: Authorizatio n - OBS PTSTAUTHDT done PT Startin g Authorization Date Lab Report: FERRITIN FERRITIN 112 ng/mL 20-288 N Ferritin [Mass/volume] in Serum or Plasma Office Visit: NATALIE, fax FALLRSKASSES Patient queried about falls and response documented. Fall risk assessment Lab Report: 06/22/20 - PH, URINE 6.5 PH, URINE EGFR NOT AFA 44 mL/min/1. 73m2 Glomerular filtration rate/1.73 sq M.predicted among non-blacks [Volume Rate/Area] in Serum, Plasma or Blood by Creatinine-based formula (MDRD) LEUES Trace Leukocyte est erase [Presence] in Urine by Test strip CA 10.3 mg/dL Calcium [Mass/volume] in Serum or Plasma KETONES UA Negative mg/dL Ketones [Mass/volume] in Urine by Test strip ABSOLUTE BAS normal 10*3/uL Basophil s [#/volume] in Blood URBC None Seen /[HPF] Erythrocyte s [#/area] in Urine sediment by Microscopy high power field GFR 54 mL/min Glomerular filtration rate/1.73 sq M.predicted among non-blacks [Volume Rate/Area] in Serum, Plasma or Blood by Creatinine-based formula (MDRD) BLD STL Negative Hemoglobin.g astroi ntestinal [Presence] in Stool CO2 TOTAL 29 mmol/L carbon diox rosa, serum, total GLUCOSE SER 245 mg/dL Glucose [Mass/volume] in Serum or Plasma UA COLOR Yellow Color of Uri ne BUN/CREAT 20 Urea nitrogen/Creatinin e [Mass Ratio] in Serum or Plasma CREATININE U 0.17 mL/min Creatini ne [Mass/volume] in Urine BACTERIA URN Few Bacteria [#/area] in Urine sediment by Microscopy high power field WBCS MICRO U 0-2 {Cells}/[ HPF] WBC urine on microscopy NITRITE URN Negative Nitrite [Presence] in Urine by Test strip MCV 91 fL MCV [Entitic volume] by Automated count ANION GAP 11 Anion gap 4 in Serum or Plasma SODIUM 142 mmol/L Sodium [Moles/volume] in Serum or Plasma HGB 14.4 g/dL Hemoglobin [Mass/volume] in Blood URIC ACID 7.0 mg/dL Urate [Mass/volume] in Serum or Plasma POTASSIUM 4.5 mmol/L Potassium [Moles/volume] in Serum or Plasma HGBA1C 8.1 % Hemoglobin A1c/Hemoglobin, total in Blood - % CREATININE 1.21 mg/dL Creatinine [Mass/volume] in Serum or Plasma CHLORIDE 102 mmol/L Chloride [Moles/volume] in Serum or Plasma BUN 24 mg/dL Urea nitrogen [Mass/volume] in Serum or Plasma Internal Other: Verbal Autho rization/Emergency Contact - OBS VERBAL_EMER DONE Verbal authorization and emergency contact Office Visit: Office Visit 3 -4m flup r/s from 12/29 MEDS REVIEW Done Documenta tion of current medications (procedure) Internal Other: Authorizatio n - OBS [email or web address] Yes Authoriza tion: Release of Information - Authorize [facility] - Payment and Healthcare Operations ROIAUTHOTHER Yes Authoriz ation: Release of Information - Authorize Others/Insurance - Payment and Healthcare Operations HIECONSENT Yes Consent To Release information to the Health Information Exchange (HIE) [email or web address] Yes Authorizat ion: Authorization for [facility] to leave messages, voicemail, send text messages, send emails AUTHRELHCARE Yes Authoriz ation: Release/Retrieval of Information to/from Healthcare Facilities, Pharmacy Benefit Payers and Providers AUTHPRIVPRAC Yes Authoriz ation: Notice of privacy practices AUTHBENEFIT Yes Authoriza tion: Assignment of Benefits and Payment Agreement Plan of Care Type Date Detail Pending order Physical Therapy Pending order EPI-Lumbar Epidu ral Steroid Injection Pending order Follow up [facility] Pending order Instructions for Staff Pending order Follow up [facility] Pending order Physical Therapy Pending order EPI-Lumbar Epidu ral Steroid Injection Pending order EPI-Lumbar Epidu ral Steroid Injection Pending Order exclud ed from report: Pending order EPI-Lumbar Epidu ral Steroid Injection Pending order EPI-Lumbar Epidu ral Steroid Injection Pending order Follow up Pending order Other Referral Pending order Physical Therapy Pending order Follow up Pending order MRI-Lumbar W/O Pending order EMG bilateral lo w ext Pending order Follow up [facility] af ter testing Pending order EMG bilateral lo w ext Pending order Follow up Pending order Follow up Pending Order exclud ed from report: Pending order Follow up Pending order Patient Instruct ions Pending order Follow up Pending order Patient Instruct ions Pending order Ferritin Serum Pending order Ferritin Serum Pending order Patient Notifica tion Pending order Other Test Pending order Patient Instruct ions Pending order Transition of Ca re Referral Procedures Code Procedure Name Date Entry Date ORDERS Instructions for Staff 02/05 [id number] EPI-Lumbar Epidural Steroid Injection 202 09/24/19 [id number] EPI-Lumbar Epidural Steroid Injection 202 09/23/29 [facility]-[id number] Documentation of current medicatio ns ORDERS Follow up [id number] Other Referral ORDERS Physical Therapy ORDERS Follow up [id number] MRI-Lumbar W/O ORDERS Follow up [facility] after testing ORDERS EMG bilateral low ext 08/22 CPT-62612 Nerve Conduction 7-8 studies CPT-76131 EMG with NCS (5+ muscles) - 1 limb 09/13 CPT-26472 EMG with NCS (4 or fewer muscles) - 1 kim b [facility]-[id number] Documentation of current medicatio ns ORDERS Follow up ORDERS Follow up ORDERS Patient Instructions ORDERS Patient Instructions [facility]-[id number] Documentation of current medicatio ns ORDERS Ferritin Serum ORDERS Follow up ORDERS Patient Instructions [facility]-[id number] Documentation of current medicatio ns ORDERS Patient Notification ORDERS Transition of Care Referral [facility]-[id number] Other Test ORDERS Ferritin Serum Vital Signs Date Name Value Unit Description Height 62.01 [in_us] height E&M BMI (Body Mass Index) 56.52 kg/m2 Bod y Mass Index (Ratio) Body Temperature 36.39 [degF] temperat ure E&M BP Diastolic 79 mm[Hg] blood pressu re, diastolic BP Systolic 136 mm[Hg] blood pressur e, systolic Heart Rate 71 /min pulse rate Respiratory Rate 20 /min respirat ory rate E&M Weight Measured 140.161 kg weight in kilograms E&M Weight Measured 272 [lb_av] weight E& M Weight Measured 272 [lb_av] weight E& M Immunizations No information available. Advance Directives No information available.
--- OUTSIDE RECORDS SUMMARY | 2024-12-10 22:17 | XMS_ITS | Clinical Summary ---
Author Organization [facility] Address [address] [place] [address] Care Team Providers Care Student Development Dean Name Role Phone BkRangel stearns Unavailable Unavailable Alondra Negrete MD Primary Care Provider Kathy Campo RN Unavailable [phone] ChemYanet zacarias RN Unavailable Aliyah Hillman RN Unavailable Allergies Active Allergy Reactions Criticality Noted Date Comments Adhesive Tape Rash 12/30/2007 Lisinopril Cough 05/25/2010 Intolerance Penicillins Hives 12/30/2007 Sulfa (Sulfonamide Antibiotics) Hives,Itching 0 12/30/2007 Unlisted Allergen (Include D etail In Comments) Hives Low 11/03/2020 Medications blood-glucose meterIndications: Diabetes mellitus with peripheral circulatory disorder, controlled (HC) Dispense meter, test strips, lancets covered by pt ins. E11.9 IDDM type II - Test 2 times/day. 1 Device 020 Active clindamycin (CLEOCIN) 300 mg capsule 600 mg by mouth prior to dental appointment 21 capsule 020 Active ONETOUCH DELICA PLUS LANCET 33 gauge miscIndications:I nsulin dependent type 2 diabetes mellitus, uncontrolled USE TO TEST THREE TIMES A DAY DIRECTED 100 Each 2 020 Active nystatin (MYCOSTATIN) creamIndications: Yeast infection of the skin Apply topically to affected area(s) 2 times daily. 60 g 3 022 Active durable medical equipment (DME)Indications: Essential hypertension Automated blood pressure cuff for home use. Length of need 99. 1 Each 022 Active acetaminophen SR (TYLENOL ARTHRITIS) 650 mg Extended-Release tabletIndications :Lumbar foraminal stenosis 1-2 oral twice daily as needed. Max acetaminophen dose: 4000mg in 24 hrs. 120 Tablet 5 022 Active CaneIndications:S ranjit stenosis, lumbar region, without neurogenic claudication Wide Base Quad Cane for home use.(Pt requesting Hurry Cane) Length of need 99. 1 Each 022 Active durable medical equipment (DME)Indications: Spinal stenosis, lumbar region, without neurogenic claudication 4 wheeled walker. Current walker is broken and unrepairable. Length of need 99. Patient has ongoing/lifetim e need of 4 wheeled walker due to spinal stenosis. 1 Each 022 Active azelastine 137 mcg/actuation (ASTELIN) nasal sprayIndications: Seasonal allergic rhinitis, unspecified trigger Inhale 2 Sprays into affected nostril(s) two times daily. 10 mL 3 022 Active capsaicin 0.075% topical (ZOSTRIX-HP) 0.075 % topical creamIndications: Diabetic polyneuropathy associated with type 2 diabetes mellitus (HC) Apply topically to affected area(s) three times daily. 57 g 3 023 Active Blood Pressure Monitor KitIndications:HT N (hypertension) Frequency of testing: daily Large cuff. For home use, length of need 99 1 Each 024 Active Diabetic ShoeIndications:D iabetes mellitus with peripheral circulatory disorder, controlled (HC) As directed. 1 Each 024 Active acetaminophen (TYLENOL EXTRA STRGTH) 500 mg tabletIndications :Chronic right-sided low back pain with right-sided sciatica Take 1-2 Tablets (500-1,000 mg) by mouth every 6 hours if needed for Pain. Max acetaminophen dose: 4000mg in 24 hrs. 150 Tablet 3 Active nystatin powder (MYCOSTATIN) powderIndications :Yeast infection of the skin Apply 1 Strip topically to affected area(s) three times daily. 60 g 5 024 Active glucose (TRUEplus Glucose) 4 gram chewable tabletIndications :Type 2 diabetes mellitus with diabetic polyneuropathy, with long-term current use of insulin (HC) Chew 1 Tablet (4 g) by mouth each time if needed for Blood Gluc < 60 mg/dL. 30 Tablet 6 024 Active Shower ChairIndications: Spinal stenosis, lumbar region, without neurogenic claudication For home use. 1 Each 024 Active miscellaneous medical supply miscIndications:L ymphedema of both lower extremities Velcro lymphedema wraps - knee high - 30-40mmHg 1 left leg, 1 right leg 2 unit 024 Active lancetsIndication s:Type 2 diabetes mellitus with diabetic polyneuropathy, with long-term current use of insulin (HC) Test 3 times per day. 100 Each 3 024 Active losartan (COZAAR) 50 mg tabletIndications :HTN (hypertension) Take 1 Tablet (50 mg) by mouth once daily. 90 Tablet 3 Active continuous glucose monitor SENSOR KIT (FreeStyle Laurent 2 Sensor)Indication s:Controlled type 2 diabetes mellitus with complication, with long-term current use of insulin (HC) To be used to read blood sugars per registered occupational therapist's directions. 6 Each 3 024 Active atorvastatin (LIPITOR) 40 mg tabletIndications :Mixed hyperlipidemia TAKE ONE TABLET BY MOUTH EVERY DAY 90 Tablet 3 024 Active blood sugar diagnostic (OneTouch Ultra Test) stripIndications: Type 2 diabetes mellitus without complication, with long-term current use of insulin (HC) TEST THREE TIMES DAILY DIRECTED 300 Each 3 024 Active tirzepatide (MOUNJARO) 15 mg/0.5 mL penIndications:Ty pe 2 diabetes mellitus without complication, with long-term current use of insulin (HC) Inject 15 mg subcutaneous once weekly. 6 mL 3 024 Active CPAPIndications:O SA (obstructive sleep apnea) CPAP machine for home use at pressure 4-15 cmw, nasal mask x1/3month with nasal cushion x2/mo 1 Each 11 024 Active montelukast (SINGULAIR) 10 mg tabletIndications :Seasonal allergies Take 1 Tablet (10 mg) by mouth at bedtime. 90 Tablet 2 024 Active loratadine (CLARITIN) 10 mg tabletIndications :Seasonal allergies Take 1 Tablet (10 mg) by mouth once daily. 90 Tablet 2 024 Active Diabetic ShoeIndications:D iabetes mellitus with peripheral circulatory disorder, controlled (HC) As directed. Diabetic shoes for home use. Length of need 99 1 Each 025 Active durable medical equipment (DME)Indications: Spinal stenosis, lumbar region, without neurogenic claudication,Danielle pheral sensory neuropathy Grab bars for shower. For home use, length of need 99 2 Each 025 Active insulin glargine U-300 (Toujeo SoloStar U-300 Insulin) 300 unit/mL (1.5 mL) penIndications:Co ntrolled type 2 diabetes mellitus with complication, with long-term current use of insulin (HC) Inject 62 units subcutaneous before breakfast. 20 mL 3 025 Active fluticasone (50 mcg per actuation) nasal solution (FLONASE)Indicati ons:Allergic rhinitis, unspecified seasonality, unspecified trigger Inhale 2 Sprays in both nostrils once daily. 18.2 mL 025 Active DULoxetine (CYMBALTA) 60 mg Delayed-release capsuleIndication s:Chronic midline low back pain with right-sided sciatica Take 1 Capsule (60 mg) by mouth once daily. Managed by neurology 90 Capsule 2 025 Active allopurinoL (ZYLOPRIM) 300 mg tabletIndications :Gout, unspecified cause, unspecified chronicity, unspecified site Take 1 Tablet (300 mg) by mouth once daily. 90 Tablet 1 025 Active pen needle (UltiCare Pen Needle) 29 gauge x 1/2 (disposable insulin pen needle)Indication s:Diabetes mellitus without complication (HC),Diabetes mellitus with peripheral circulatory disorder, controlled (HC) USE TO ADMINISTER INSULIN AT HOME DIRECTED. 400 Each 3 025 Active insulin aspart (U-100) (NovoLOG Flexpen U-100 Insulin) 100 unit/mL (3 mL) penIndications:Co ntrolled type 2 diabetes mellitus with complication, with long-term current use of insulin (HC) INJECT 25 UNITS BEFORE EACH MEAL 60 mL 025 Active pregabalin 150 mg capsuleIndication s:Peripheral sensory neuropathy Take 1 Capsule (150 mg) by mouth two times daily. 60 Capsule 025 Active furosemide 20 mg tabletIndications :Edema of both legs TAKE 2 TABLETS BY MOUTH EVERY MORNING AND TAKE 1 TABLET BY MOUTH IN THE AFTERNOON AT 2:00PM DIRECTED 270 Tablet 025 Active aspirin chewable 81 mg chewable tabletIndications :Diabetes mellitus with peripheral circulatory disorder, controlled (HC),Stage 3 chronic kidney disease, unspecified whether stage 3a or 3b CKD (HC) CHEW & SWALLOW 1 TABLET BY MOUTH DAILY WITH FOOD 90 Tablet 3 025 Active busPIRone 5 mg tabletIndications :Anxiety TAKE 1 TABLET BY MOUTH TWICE A DAY 180 Tablet 1 025 Active cyanocobalamin 1,000 mcg tabletIndications :Diabetic polyneuropathy associated with type 2 diabetes mellitus (HC),B12 deficiency TAKE 1 TABLET BY MOUTH DAILY 90 Tablet 2 025 Active Incontinence Pad, Liner, Disp (Prevail Pads) padsIndications:M ixed stress and urge urinary incontinence USE THE PADS THREE TIMES A DAY NEEDED FOR URINARY INCONTINENCE 132 Each 3 025 Active aspirin chewable 81 mg chewable tabletIndications :Diabetes mellitus with peripheral circulatory disorder, controlled (HC),Stage 3 chronic kidney disease, unspecified whether stage 3a or 3b CKD (HC) Chew 1 Tablet (81 mg) by mouth once daily with a meal. 90 Tablet 3 024 2024 Discontinued furosemide (LASIX) 20 mg tabletIndications :Edema of both legs TAKE 2 TABLETS BY MOUTH EVERY MORNING AND TAKE 1 TABLET AT 2 IN THE AFTERNOON DIRECTED 270 Tablet 3 024 2024 Discontinued insulin aspart, U-100, (NovoLOG Flexpen U-100 Insulin) 100 unit/mL (3 mL) penIndications:Co ntrolled type 2 diabetes mellitus with complication, with long-term current use of insulin (HC) INJECT 25 UNITS BEFORE EACH MEAL 30 mL 3 024 2024 Discontinued(R eorder (E-cancel not sent)) cyanocobalamin (Vitamin B-12) 1,000 mcg tabletIndications :Diabetic polyneuropathy associated with type 2 diabetes mellitus (HC),B12 deficiency Take 1 Tablet (1,000 mcg) by mouth once daily. 90 Tablet 2 024 2024 Discontinued Incontinence Pad, Liner, Disp (Prevail Pads) padsIndications:M ixed stress and urge urinary incontinence Use pads three times a day as needed for urinary incontinence 132 Each 3 024 2024 Discontinued pregabalin (LYRICA) 150 mg capsuleIndication s:Peripheral sensory neuropathy Take 1 Capsule (150 mg) by mouth two times daily. 180 Capsule 3 024 2024 Discontinued(* Availability/F ormulary change/Cost of medication) busPIRone (BUSPAR) 5 mg tabletIndications :Anxiety TAKE ONE TABLET (5 MG) BY MOUTH TWICE DAILY 180 Tablet 1 024 2024 Discontinued Active Problems Problem Noted Date Diagnosed Date Sensorineural hearing loss, bilateral 07/09/2022 LARRY 01/04/2022 AHI- 13.7 02/21/2022 Sarcoid 12/07/2021 Overview (12/07/2021): Found in lumbar spine, minimal lung disease. No need for treatment per pulmonary as of 2021 Closed nondisplaced fracture of fifth metatarsal bone of right foot with routine healing 08/29/2019 Acute idiopathic gout of left hand 05/14/2019 Incontinence of urine in female 02/10/2018 Overview (02/10/2018): Has pads/ pullups Controlled substance agreement terminated 2017 Overview (09/02/2017): Controlled substances no longer needed. Pain improved. Acquired spondylolisthesis 09/12/2016 Trigger finger 09/11/2016 History of pulmonary embolus (PE) 09/11/2016 Overview (09/11/2016): In 2003 provoked following left total knee arthroplasty CKD (chronic kidney disease) stage 3, GFR 30-59 ml/min 09/11/2016 Diabetic polyneuropathy asso ciated with type 2 diabetes mellitus 10/03/2015 Pulmonary nodule 06/08/2015 Overview (06/08/2015): 05/2015, ED CT. 3 month f/u recommended. Complex renal cyst 12/29/2014 CTS (carpal tunnel syndrome) 08/27/2012 Overview (08/27/2012): Wears splints at bedtime Iron (Fe) deficiency anemia 11/14/2011 Overview (02/11/2012): Colonoscopy 08/2011 normal repeat in 10 years Improved and stable. 02/11/2012 Diabetes mellitus with perip heral circulatory disorder, controlled 06/11/2011 Overview (06/11/2011): Form completed for therapeutic shoes. 06/11/2011 Spondylolisthesis of lumbar region 05/28/2011 Spinal stenosis, lumbar lamar on, without neurogenic claudication 05/28/2011 Actinic keratosis 05/15/2011 Overview (05/15/2011): Face Routine general medical exam ination at a health care facility 11/03/2010 Overview (05/26/2012): Normal Angiogram 06/2009 at [place]. Negative Nuclear Stress Test 04/2012 colonoscopy reportedly within normal limits approximately 2004 in [place], [place] 11/03/2010 Unspecified essential hypertension 11/03/2010 Mixed hyperlipidemia 05/25/2010 Osteoarthritis of spine 05/25/2010 Overview (05/25/2010): S/P Epidural Injections: short term benefit in 2008. Morbid obesity 05/25/2010 Lesion of plantar nerve 12/30/2007 Resolved Problems Problem Noted Date Diagnosed Date Resolved Date New onset atrial fibrillation 09/08/2021 11/22/2021 Spinal stenosis, lumbar lamar on, without neurogenic claudication 09/12/2016 12/09/2017 Microalbuminuria 05/26/2012 03/01/2016 Overview (05/26/2012): Started Losartan 25 milligram at bedtime 05/26/2012 CTS (carpal tunnel syndrome) 11/14/2011 02/11/2012 Overview (12/05/2011): Mild: reverses with movement. Given wrist splints 12/05/2011 PUSTULE NONMALIGNANT 01/29/2011 016 Overview (01/29/2011): Recurrent on Buttocks: worse in warm weather. 01/29/2011 Skin lesion of face 09/06/2010 03/01/20 16 DIABETES 07/10/2002 03/01/2016 Encounters Date Type Department Care Team Description 12/10/2024 1:15 PM CDT Office Visit [facility] [address] [place] [address] Lara Bui PA Derm Problem (Red toes) 12/10/2024 Telephone [facility] [address] [place] [address] Arslan Rosa DPM Appointment Request 12/09/2024 Travel 12/08/2024 1:20 PM CDT Telemedicine [facility] [address] [place] [address] Lara Bui PA Derm Problem (Foot) 12/08/[address] [address] Alondra Negrete MD Refill Request (Prevail Pads) 12/08/[address] [address] Alondra Negrete MD Refill Request (Pregabalin, Furosemide, Aspirin Chewable, Buspirone, Cyanocobalamin) 12/08/2024 Travel 12/07/2024 Travel 11/25/2024 Travel 11/16/[address] [address] Alondra Negrete MD Medication Management 11/16/[address] [address] Alondra Negrete MD Medication Management (insulin aspart, U-100, (NovoLOG Flexpen U-100 Insulin) 100 unit/mL (3 mL) pen/) 11/02/2024 9:40 AM CDT Ancillary Procedure [address] [address] 11/02/[address] [address] Alondra Negrete MD Results (mammogram ) 11/02/[address] [address] Alondra Negrete MD Refill Request (Ulticare Pen Needle) 11/01/2024 Travel 10/27/[address] [address] Alondra Negrete MD Refill Request (Allopurinol) 10/23/2024 Travel 10/08/[address] [address] Aisha Borden MD Medication Problem 10/08/2024 Nurse Triage [address] [address] Alondra Negrete MD Medication Problem 10/08/2024 Nurse Triage [address] [address] Alondra Negrete MD 09/29/[address] [address] Alondra Negrete MD Refill Request (Duloxetine) 09/25/2024 9:30 AM CUSTOMS GUARD Telemedicine [facility] [address] [place] [address] Jocelyn Cabrera PA Telehealth (Sinus symptoms) 09/25/2024 Travel 09/21/2024 11:20 AM CUSTOMS GUARD Telemedicine [facility] [address] [place] [address] Jocelyn Cabrera PA Telehealth (Sinus symptoms) 09/21/2024 Travel 09/17/2024 Telephone [facility] [address] [facility] [place] [address] Alondra Negrete MD Medication Management (Clarification needed. ) 09/12/2024 Travel from Last 3 Months Immunizations Immunization Administration Dates Next Due AMB Influenza, IIV4 PF (=>6 mos Flulaval,Fluzone Fluarix)(Flu Clinic Only) 06/12/2016 COVID-19 VACCINE SPIKEVAX (M ODERNA 50MCG/0.5ML) 12YO+ PFS 05/16/2023 COVID-19 vaccine (Moderna 100mcg/0.5mL) PF, MDV 11/27/2021,06/21/2021,10/12/2020,09/14 COVID-19 vaccine (Pfizer-Bio NTech 30mcg/0.3mL) 12YO+ BIVALENT PF, MDV 02/14/2023,05/07/2022 HepA-HepB (Twinrix) 02/04/2013,12/01/2012 Hepatitis A, Unspecified 02/04/2013,12/01/2012 Hepatitis B (Peds) 05/05/2013 Hepatitis B, Unspecified 05/05/2013,02/04/2013,0 12/01/2012 Influenza A (H1N1), Inactiva matt (Age >=3 Years) 06/21/2009 Influenza Virus, Unspecified 05/19/2008 Influenza, High-dose Inactivated 06/19/2011 Influenza, High-dose Quadriv alent Inactivated 05/10/2021 Influenza, IIV3 (Age 6-35 mos) 3,04/27/2013,04/30/2011,06/11 Influenza, IIV3 (Age >=3 years) 05/14/20 12,04/30/2011,05/30/2010,06/16,08/19/2007,06/29/2005 Influenza, IIV4 05/20/2018, 7,06/12/2016,05/02,05/13/2014,04/27/2014 Influenza, Inactivated AIIV4 (Age 65+ Years) Preserv Free 04/27/2024,05/06/2023,05/07/2022,05/04 Influenza, Inactivated IIV3 (Age 65+ Years) Preserv Free 04/23/2019 Pneumococcal Poly,23-Valent (Pneumovax) 07/30/2019,06/19/2011,08/19/2007,06/11,05/19/2004 Pneumococcal conj 13-Valent (Prevnar 13) 07/25/2018,11/27/2017 RSV, Recombinant ADJ Reconst ituted (Arexvy 120MCG/0.5mL) 05/08/2023 Tdap 05/29/2021,06/19/2011,10/25/2008 Zoster (Shingrix-RZV, recombinant) 01/30/2018, Zoster (Zostavax-ZVL, live) 01/11/2015, 4,08/27/2013 Family History Medical History Relation Name Comments Cancer-prostate Brother 1 Rex Cancer Brother 2 Dante Pancreatic: jus t 3 months to live 01/2011 Arthritis Brother 3 Jesse s/p bilateral k nee replacement and planned for RAFAEL Cancer-prostate Brother 3 Jesse Stroke Brother 4 Bony Heart attack Brother 5 Evans Aneurysm Brother 6 Oral abdominal Diabetes Mother Libby Heart failure Mother Libby Blood Disease Sister 1 Samantha Knee Surgery: Blood Clot after Other Sister 1 Samantha COPD Diabetes Sister 2 Cheryl Dementia Sister 3 Elissa Diabetes Sister 3 Elissa Heart Disease Sister 3 Elissa CABG: CAD Lung cancer Sister 4 Fanny Anesthesia Problem No Family History Cancer-breast No Family History Cancer-ovarian No Family History Relation Name Status Comments Brother 1 Rex Alive Brother 2 Dante (Age 71) Brother 3 Jesse Alive Brother 4 Bony (Age 73) Brother 5 Evans (Age 50s) Pneumonia Brother 6 Oral Alive Father Hernan (Age 72) Mother Libby (Age 62) Sister 1 Samantha Alive Sister 2 Cheryl Sister 3 Elissa Sister 4 Fanny Social History Tobacco Use Types Packs/Day Years Used Date Smoking Tobacco: Former Cigarettes 0.5 27.2 0 12/17/1970 - 03/06/1998 Smokeless Tobacco: Never Tobacco Cessation:Counseling Given: Yes Alcohol Use Standard Drinks/Week Comments No 0 (1 standard drink = 0.6 oz pur e alcohol) PHQ-2 Answer Date Recorded PHQ-2 TOTAL SCORE 0 05/11/2024 Social Connections Answer Date Recorded Do you often feel lonely or isolated from those around you? 0 02/12/2024 Financial Resource Strain Answer Date R ecorded Difficulty of Paying Living Expenses 3 02/12/2024 Difficulty of Paying Living Expenses Not on file 02/12/2024 Food Insecurity Answer Date Recorded Do you worry your food will run out before you are able to buy more? 1 02/12/2024 Transportation Needs Answer Date Record ed Does lack of transportation keep you from medica l appointments? 1 02/12/2024 Does lack of transportation keep you from work, meetings or getting things that you need? 1 02/12/2024 Housing Stability Answer Date Recorded What is your housing situation today? 1 02/12/2024 Utilities Answer Date Recorded Do you have trouble paying f or utilities (for example, heat, electricity, water, phone)? 1 02/12/2024 Comments No Sex and Gender Information Value Date Recorded Sex Assigned at Not on file Legal Sex Female 5:20 AM CUSTOMS GUARD Gender Identity Not on file Sexual Orientation Not on file Occupation Industry Job Start Date Job End Date DISABLED Not on file Not on file Not on file Obstetrics History Para Term AB IAB SAB Ectopic Multiple Livin g Live Births 3 3 3 Date Outcome GA Total Labor Labor/2nd/3rd Weight Sex Type Anes PTL Gloria A1 A5 Name Clin Para Para Para Last Filed Vital Signs Vital Sign Reading Time Taken Comments Blood Pressure 129/82 12/10/2024 1:09 PM CDT Pulse 78 12/10/2024 1:09 PM CDT Temperature 36.6 C (97.8 F) 04/06/2024 10:14 AM CDT Respiratory Rate 18 11/28/2021 3:34 PM CDT Oxygen Saturation 96% 12/10/2024 1:09 PM CDT Inhaled Oxygen Concentration - - Weight 122.5 kg (270 lb) 06/03/2024 10:47 AM CDT Height 154.9 cm (5' 1) 05/11/2024 1:28 PM CDT Body Mass Index 51.02 05/11/2024 1:28 PM CDT Plan of Treatment Upcoming Encounters Date Type Department Care Team (Late st Contact Info) Description 12/17/2024 1:30 PM CDT Office Visit [facility] [place] [address] [facility] [address] [place] [id number] Arslan Rosa, GRA[place] [address] [place] [address] Health Maintenance Due Date Last Done Comments COVID-19 vaccine series ( season) 2024 04/27/2024, 05/16/2023, 02/14/2023, Additional history exists Fecal testing sDNA-FIT ([place] guard) for age 45-75 12/24/2024 12/24/2021, 12/24/2021 BMI (ht and wt on same day) for age 18+ 05/11/2025 05/11/2024, 02/12/2024, 12/04/2023, Additional history exists Medicare Wellness for age 65+ 05/12/2025, 05/06/2023, 12/07/2021, Additional history exists Depression screening for age 12+ 05/13/2025 05/13/2024, 05/13/2024, 05/13/2024, Additional history exists Mammogram for age 45-75 11/02/2025 11/03/19, 10/24/2023, 06/11/2022, Additional history exists Lipids for age 45-75 12/27/2027 12/26/2022, 09/08/2021, 02/23/2020, Additional history exists Tetanus booster 05/29/2031 05/29/2021, 11/0 08/2010, 10/25/2008 Zoster (shingles) series for age 50+ Completed 01/30/2018, 11/05/2017, 01/11/2015, Additional history exists Hepatitis C screening for ag e 18-79 Completed 07/20/2019 Pneumococcal series for age 50+ Completed 07/30/2019, 07/25/2018, 11/27/2017, Additional history exists Tdap Completed 05/29/2021, 1108/2010, 10/25/2008 RSV vaccine for adults or Completed 05/08/2023 Influenza Vaccine Completed 04/27/2024, , 05/07/2022, Additional history exists DEXA/DXA scan for age 65+ Completed 2023, 08/21/2018, 02/23/2011 Medical Devices Implanted Type Area Cryptologic Support Specialist Device Identifier Shelf Expiration Date Model / Serial / Lot Murray Lmbr 70x5.5mm Tsrh 3d Cvd Titnm - [id number] Implanted:Qty: 2 on 09/12/2016 by Grzegorz Echavarria MBChB at [facility] Spine Implants N/A: Spine Medtronic Spine/Ortho [id number]# / / [id number] one 1-4mm 30cc Medtronic Chips Canclls Frozen Implanted:Qty: 1 on 09/12/2016 by Grzegorz Echavarria MBChB at [facility] Explanted:at [facility] (Quantity not on file) N/A: Spine Medtronic Spine/Ortho 01/08/2019 [id number]# / [id number] / [id number] one 1-4mm 30cc Medtronic Chips Canclls Frozen Implanted:Qty: 1 on 09/12/2016 by Grzegorz Echavarria MBChB at [facility] Explanted:at [facility] (Quantity not on file) N/A: Spine Medtronic Spine/Ortho 01/12/2019 [id number]# / [id number] / Dura Neuro 1x1in Duragen Plus Non-Sut - [id number] Implanted:Qty: 1 on 09/12/2016 by Grzegorz Echavarria MBChB at [facility] N/A: Spine Integra Lifesciences Naa 05/18/2019 [id number] / / [id number] Screw Lmbr Tsrh 3dx - [id number] Implanted:Qty: 6 on 09/12/2016 by Grzegorz cEhavarria MBChB at [facility] N/A: Spine Medtronic Spine/Ortho [id number]# / / Cnnctr Lmbr Sm Tsrh 3dx Offsettitnm - [id number] Implanted:Qty: 6 on 09/12/2016 by Grzegorz Echavarria MBChB at [facility] N/A: Spine Medtronic Spine/Ortho [id number]# / / Screw Lmbr Post 6.5x40mm Ts 3dx Og Thin Va - [id number] Implanted:Qty: 6 on 09/12/2016 by Grzegorz Echavarria MBChB at [facility] N/A: Spine Medtronic Spine/Ortho [id number] / / Procedures Procedure Name Priority Date/Time Associated Diagnosis Comments XR MAMMO JAMES BILAT SCREEN Routine 11/02/2024 9:41 AM CDT Encounter for screening mammogram for malignant neoplasm of breast XR DXA BONE DENSITY 1 SITE AXIAL AND 1 SITE PERIPHERAL Routine 06/10/2024 9:22 AM CDT Menopause LIPID PANEL W REFLEX MEASURED LDL Routine 12/26/2022 8:45 AM CDT Type 2 diabetes mellitus with diabetic polyneuropathy, with long-term current use of insulin (HC) FECAL DNA (AKA COLOGUARD) Routine 12/24/2021 12:00 AM CDT Screening for colon cancer ANTI HCV Routine 07/20/2019 3:33 PM CUSTOMS GUARD Need for hepatitis C screening test from Last 3 Months or Most Recently Relevant to Health Maintenance Results * XR MAMMO JAMES BILAT SCREEN (11/02/2024 9:41 AM CDT) Anatomical Region Laterality Modality BREASTS, Breast Left, Breast Right Bilateral Mammography Impressions 11/02/2024 2:23 PM CDT There is no radiographic evidence for malignancy. Recommend annual mammograms. MAMMOGRAM ASSESSMENT: ACR 1 Negative PATIENTS: You will also receive a letter with your examination results in an easy to read format. If you have questions about your results, please contact your referring provider. Narrative 11/02/2024 2:23 PM CDT For Patients: As a result of the Century Cures Act, medical imaging exams and procedure reports are released immediately into your electronic medical record. You may view this report before your referring provider. If you have questions, please contact your health care provider. XR MAMMO JAMES BILAT SCREEN [[id number]] CLINICAL HISTORY: This is an asymptomatic 69 y.o. patient. INDICATION FOR EXAM: Mammogram Screening. TECHNIQUE: CC and MLO views were obtained. This study was evaluated with the assistance of Computer-Aided Detection. Breast Tomosynthesis was used in interpretation. COMPARISON FILM: Yes 10/24/23 [facility]stream 06/11/22 [facility]stream FINDINGS: There are scattered areas of fibroglandular density. There are no dominant masses, suspicious micro calcifications or areas of architectural distortion. us Alondra Negrete MD MAMMO Final R esult * XR DXA BONE DENSITY 1 SITE AXIAL AND 1 SITE PERIPHERAL (06/10/2024 9:22 AM CDT) Anatomical Region Laterality Modality LUMBAR SPINE Other Impressions 06/12/2024 4:10 PM CDT Normal bone density. RECOMMENDATIONS: The National Osteoporosis Foundation recommends pharmacologic treatment for patients with T-scores of -2.5 or less, patients with prior history of fragility fractures, or patients with 10-year probability of greater than 3% at hips or greater than 20% of suffering major osteoporotic fractures. Recommend continued optimization of calcium and vitamin D intake through dietary means and/or supplementation and regular exercise. Repeat scan recommended in 3-5 years. Cydney Smith PA-C [facility] 06/12/2024 Narrative 06/12/2024 4:10 PM CDT For Patients: Results are automatically released to your Qstream ([employer]) account once available, in compliance with federal regulations. This means that you may see your results before your provider has had a chance to review them. Please allow 2-3 business days for your provider to comment on the results. XR DXA Bone Mineral Density (BMD) EXAM LOCATION: [facility] [address] [facility] [address] PATIENT NAME: Jessica Gutiérrez DATE OF : 1955 EXAM DATE: 06/10/2024 REQUESTING PROVIDER: Alondra Negrete MD GENDER AT : female HEIGHT: 5' 1 (05/11/2024) WEIGHT: 270 lb (06/03/2024) MENOPAUSAL STATUS: Postmenopausal RACE/ETHNICITY: White RISK FACTORS: Smoking (prior) and White Race CURRENT MEDICATION FOR BONE LOSS: NONE INDICATION: Post-Menopause and Follow-up of normal DXA COMPARISON DATE(S): 2018 DXA scans are compared to prior studies for a patient only when the two (or more) studies were performed on the same scanner. It is not possible to compare data generated on one scanner to data from another because there are not standards in DXA equipment. This applies even if the two scanners are made by the same registered occupational therapist. PROCEDURE: Dual-energy x-ray absorptiometry performed with routine technique. Reporting is completed in the form of a T-score. The T-score represents the standard deviation from peak bone mass based on young healthy adult. A Z-score is used for diagnosis in premenopausal women, and for men under the age of 50. FINDINGS: RESULTS FEMUR Left femoral neck BMD: 1.066 g/cm2 T-Score: + 0.2 Z-Score: + 1.2 Change from prior in 2019: Decrease 0.7%. Right femoral neck BMD: 1.130 g/cm2 T-Score: + 0.7 Z-Score: + 1.6 Change from prior in 2019: Increase 1.6%. Left hip BMD: 1.023 g/cm2 T-Score: + 0.1 Z-Score: + 0.8 Change from prior in 2019: Decrease 6.1%. Right hip BMD: 1.003 g/cm2 T-Score: + 0.0 Z-Score: + 0.6 Change from prior in 2019: Decrease 8.0%. RESULT FOREARM Left Forearm distal radius BMD: 0.811 g/cm2 T-Score: + 2.3 Z-Score: + 4.2 Change from prior in 2019: Decrease 3.8%. WHO criteria: Normal: T-score at or above -1 SD Osteopenia: T-score between -1.1 and -2.4 SD Osteoporosis: T-score at or below -2.5 SD us Alondra Negrete MD DEXA Final R esult * (ABNORMAL) LIPID PANEL W REFLEX MEASURED LDL (12/26/2022 8:45 AM CDT) CHOLESTEROL,TOTAL 182 mg/dL 023 9:20 PM CDT [facility] Comment: Cholesterol, Total Reference Ranges Desirable <200 mg/dL Borderline 200-239 mg/dL High >=240 mg/dL TRIGLYCERIDES 145 <150 mg/dL 12/26/2022 9:20 PM CDT [facility] HDL CHOLESTEROL 39(L) >40 mg/dL 9:20 PM CDT [facility] NON-HDL CHOLESTEROL 143 <145 mg/dl 12/26/2022 9:20 PM CDT [facility] CHOL/HDL RATIO 4.67(H) <4.50 12/26/2022 9:20 PM CDT [facility] LDL CHOLESTEROL 114 <=130 mg/dL 12/26/2022 9:20 PM CDT [facility] VLDL CHOLESTEROL 29 <=30 mg/dL 12/26/2022 9:20 PM CDT [facility] PROVIDER ORDERED STATUS RANDOM 12/26/2022 9:20 PM CDT [facility] Blood BLOOD SPECIMEN / Unknown Venipuncture / Unknown 12/26/2022 8:45 AM CDT 12/26/2022 8:49 AM CDT us Alondra Negrete MD CHEMISTRY Final R esult [facility] [address] [place] [address], [place] * FECAL DNA (AKA COLOGUARD) (12/24/2021 12:00 AM CDT) us Alondra Negrete MD COMMUNICATION ORD Edite d Result - Final * ANTI HCV (07/20/2019 3:33 PM CUSTOMS GUARD) HEPATITIS C ANTIBODY Non-React tashi Non-React tashi 07/21/2019 2:13 PM CUSTOMS GUARD [facility] Comment:Antibodies to HCV no t detected; does not exclude the possibility of exposure to HCV. Blood BLOOD SPECIMEN / Unknown Venipuncture / Unknown 07/20/2019 3:33 PM CUSTOMS GUARD 07/20/2019 3:33 PM CUSTOMS GUARD us Alondra Negrete MD SEND OUTS Final R esult [facility] 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 Expl anation POLST 03/25/2019 10:48 AM GIGI BERNSTEIN, 03/24/19 Healthcare Directive 09/14/2016 2:33 PM ELOISA LEÓN, 08/11/2016 * Full Code (Latest Code Status on File) Date Activated Date Inactivated Comments 09/12/2016 7:25 PM 09/15/2016 12:58 PM * Full Code Date Activated Date Inactivated Comments 09/12/2016 6:35 AM 09/12/2016 5:05 PM Question Answer Comments Code Status Discussion: Not Discussed Care Teams Student Development Dean Relationship Specialty Start Date End Date Alondra Negrete MD [address] [place] [address] PCP - General Family Practice 05/06/17 Rangel Nelson Business Analysis Analyst 02/11/12 Kathy Campo RN [address] [facility] [address] [place] [address] Training Manager - [facility] Registered Nurse 06/19/18 Yanet Burt RN [address] [facility] [place], [place] [id number] Training Manager - [facility] Registered Nurse 06/19/18 Aliyah Hillman RN [address] [facility] [address] [place] [address] Training Manager - [facility] Registered Nurse 06/08/21
[2024-12-10 22:20] VITALS: BP 119/91; PULSE 96; RESP 18; TEMP 36.3; O2SAT 97; BMI 55.7
--- NOTE | 2024-12-10 22:29 | CRLHL7_ITS ---
For Patients: As a result of the Cures Act, medical imaging exams and procedure reports are released immediately into your electronic medical record. You may view this report before your referring provider. If you have questions, please contact your health care provider. INDICATION: Cough. TECHNIQUE: Chest 1 view. COMPARISON: 10/15/2021. FINDINGS: Cardiovascular and mediastinum: Cardiomediastinal silhouette is within normal limits. Lungs and pleural spaces: Lungs are clear. No sign of infiltrate or mass. No sign of pleural effusion. No pneumothorax. Bones and soft tissues: Bilateral reverse total shoulder arthroplasty. IMPRESSION: No consolidation. Dictated by Denny Gonzalez MD @ 12/10/2024 11:02:37 PM (Electronically Signed)
--- NOTE | 2024-12-10 22:30 | ED.GENADULT ---
HPI - General Adult General Date Seen: 12/10/24 Chief complaint: Headache/Migraine Stated complaint: COVID +, headache Time Seen by Provider: 12/10/24 22:15 History of Present Illness HPI narrative: Patient is a 69-year-old woman who says that she started to feel ill tonight with symptoms of fatigue, cough, aches and headache. She lives at [facility] and says they have 6 residence currently with COVID. She took 3 COVID test at home, 1 was negative but the other 2 were positive. She has had COVID a couple of times previously, she has had pneumonia with it a couple of times and so that concerned her but also found Paxlovid helpful last time. Her daughter was concerned because of her comorbidities 1 to get her checked out. She does not have any other specific complaints. Has not had any fevers. He is not short of breath. 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 She is on atorvastatin, no other medications that appear to directly interact with Paxlovid. Related Data Home Medications ?Medication ?Instructions ?Recorded ?Confirmed acetaminophen 500 mg tablet mg PO PRN 04/12/22 04/12/22 allopurinol 100 mg tablet 100 mg PO DAILY 04/12/22 12/10/24 ascorbic acid (vitamin C) PO 04/12/22 04/12/22 aspirin 81 mg chewable tablet 81 mg PO DAILY 04/12/22 12/10/24 atorvastatin 40 mg tablet 40 mg PO .Bedtime 04/12/22 12/10/24 beclomethasone dipropionate 40 2 inhalation DAILY 04/12/22 04/12/22 mcg/actuation HFA breath activated aerosol dulaglutide 1.5 mg/0.5 mL 1.5 mg subcut .Every 7 Days 04/12/22 04/12/22 subcutaneous pen injector duloxetine 20 mg capsule,delayed 20 mg PO DAILY 04/12/22 11/28/23 release ferrous sulfate 325 mg (65 mg mg PO DAILY 04/12/22 04/12/22 iron) tablet fluticasone propionate 50 2 intranasal DAILY 04/12/22 04/12/22 mcg/actuation nasal spray,suspension furosemide 20 mg tablet 20 mg PO BID 04/12/22 11/28/23 insulin aspart U-100 100 unit/mL 14 subcut 04/12/22 04/12/22 (3 mL) subcutaneous pen insulin glargine U-300 conc 300 52 unit subcut BID 04/12/22 02/03/23 unit/mL (1.5 mL) subcutaneous pen ketorolac 10 mg tablet mg PO PRN 04/12/22 04/12/22 losartan 50 mg tablet 50 mg PO DAILY 04/12/22 12/10/24 meloxicam 7.5 mg tablet 7.5 mg PO DAILY 04/12/22 12/10/24 montelukast 10 mg tablet 10 mg PO .Bedtime 04/12/22 12/10/24 oxycodone 5 mg tablet mg PO PRN 04/12/22 04/12/22 pregabalin 100 mg capsule 100 mg PO TID 04/12/22 11/28/23 sennosides 8.6 mg-docusate sodium 1 PO BID 04/12/22 04/12/22 50 mg tablet vitamin A 2,400 mcg capsule 8,000 unit PO DAILY 04/12/22 04/12/22 zinc sulfate 50 mg zinc (220 mg) mg PO DAILY 04/12/22 04/12/22 capsule acetaminophen 650 mg 1,300 mg PO BID 02/03/23 12/10/24 tablet,extended release allopurinol 300 mg tablet 300 mg PO DAILY 02/03/23 02/03/23 azelastine 137 mcg (0.1 %) nasal intranasal 02/03/23 spray blood sugar diagnostic (OneTouch 02/03/23 02/03/23 Verio test strips) buspirone 5 mg tablet 5 mg PO BID 02/03/23 12/10/24 capsaicin 0.075 % topical cream applic topical 02/03/23 (Arthritis Pain Relief (capsaicin)) cyanocobalamin (vitamin B-12) 1,000 mcg PO DAILY 02/03/23 12/10/24 1,000 mcg tablet (Vitamin B-12) dulaglutide 0.75 mg/0.5 mL 0.75 mg subcut 02/03/23 subcutaneous pen injector (Trulicity) duloxetine 60 mg capsule,delayed 60 mg PO DAILY 02/03/23 11/26/23 release loratadine 10 mg tablet 10 mg PO DAILY 02/03/23 11/28/23 pregabalin 150 mg capsule 150 mg PO 3XD 02/03/23 11/26/23 Previous Rx's ?Medication ?Instructions ?Recorded cephalexin 500 mg capsule 2,000 mg (4 x 500 mg) PO ONCE #4 10/28/23 caps loperamide 2 mg capsule (Imodium 2 mg PO QID PRN loose stool #30 04/25/24 A-D) caps nirmatrelvir 300 mg (150 mg See Rx Instructions PO .COMPLEX 12/10/24 x2)-ritonavir 100 mg tablet,dose #30 ea pack (Paxlovid) Allergies Allergy/AdvReac Type Severity Reaction Status Date / Time adhesive AdvReac Verified 12/10/24 22:33 lisinopril AdvReac Cough Verified 12/10/24 22:33 Penicillins AdvReac Verified 12/10/24 22:33 Sulfa (Sulfonamide AdvReac itchy Verified 12/10/24 22:33 Antibiotics) Review of Systems Status of ROS: Reports: 10 or more systems reviewed and unremarkable except as noted in History and below PFSH PFS Medical History Fracture of fifth metatarsal bone ?S92.353A - Displaced fracture of fifth metatarsal bone, unspecified foot, initial encounter for closed fracture (ICD-10) Encounter for counseling regarding advance directives (08/11/16) ?Z71.89 - Other specified counseling (ICD-10) VTE (venous thromboembolism) (~2005) ?I82.90 - Acute embolism and thrombosis of unspecified vein (ICD-10) Depression ?F32.A - Depression, unspecified (ICD-10) Incontinence ?R32 - Unspecified urinary incontinence (ICD-10) DVT (deep venous thrombosis) ?I82.409 - Acute embolism and thrombosis of unspecified deep veins of unspecified lower extremity (ICD-10) Surgical History History of arthroscopy of right knee (09/30/95) ?Z98.890 - Other specified postprocedural states (ICD-10) Status post osteotomy (01/04/99) ?Z98.890 - Other specified postprocedural states (ICD-10) History of incision and drainage (01/09/07) ?Z98.890 - Other specified postprocedural states (ICD-10) H/O nasal septoplasty ?Z98.890 - Other specified postprocedural states (ICD-10) 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) ?Z98.890 - Other specified postprocedural states (ICD-10) History of arthroscopy of right shoulder (03/09/19) ?Z98.890 - Other specified postprocedural states (ICD-10) History of reverse total replacement of right shoulder joint (12/12/20) ?Z98.890 - Other specified postprocedural states (ICD-10) History of lumbar fusion (~2016) ?Z98.1 - Arthrodesis status (ICD-10) History of total right knee replacement (12/18/06) ?Z96.651 - Presence of right artificial knee joint (ICD-10) H/O endoscopy ?Z98.890 - Other specified postprocedural states (ICD-10) History of cholecystectomy ?Z90.49 - Acquired absence of other specified parts of digestive tract (ICD-10) History of appendectomy ?Z90.49 - Acquired absence of other specified parts of digestive tract (ICD-10) History of total left knee replacement (07/17/06) ?Z96.652 - Presence of left artificial knee joint (ICD-10) Family History Mother Congenital heart disease Diabetes Father No problems noted. Brother Prostate cancer Stroke Sister Myocardial infarction High blood pressure Social History Smoking Status: Former smoker Do you use any of these nicotine containing products: None Second hand tobacco smoke exposure: No How often do you have a drink containing alcohol: never How often do you have six or more drinks on one occasion: Never AUDIT-C Alcohol total score: 0 Non-prescribed substance use: denies use service: No Exam Narrative: Exam Narrative: Vital signs reviewed In general, alert, nontoxic woman. She is breathing easily. Head: Normocephalic, atraumatic. Eyes: Sclera clear. Pupils equal and reactive. ENT: Mucous membranes moist. Throat normal. Neck: Supple without adenopathy. Heart: Regular rate and rhythm without murmur. Lungs: Clear. No increased work of breathing, crackles or wheezes. Extremities: Well perfused, pulses intact. No significant edema. Neurologic: Alert, conversant. Speech fluent, face symmetric. Moves all extremities equally. Skin: Warm, dry well perfused. Affect: Normal. Const: Vital Signs, click to edit/add: Vital Signs - 24 hr 12/10/24 22:20 Temperature 97.3 F L Pulse Rate [Right Pulse Oximeter] 96 Respiratory Rate 18 Blood Pressure [Le ft Upper Arm] 119/91 H Pulse Oximetry 97 Oxygen Delivery Me thod Room Air Course Course ED Course: I think with exposure to COVID and home test positive it is reasonable to presume this is COVID. Will do an x-ray for her, I think with symptoms only of a few hours pneumonia is of low clinical likelihood. I also think that in the absence of shortness of breath, chest pain, hypoxia, tachycardia and with only if you are is a symptoms we do not need to be concerned about DVT or PE here. I will prescribe Paxlovid for her. Otherwise, general care for viral illness. Point of care creatinine pending to determine Paxlovid dosage. Chest x-ray by my read and radiology read is negative. Creatinine is 0.9. Paxlovid prescribed. Tylenol as needed, anticipate improvement over the next 7-14 days, primary care follow-up if needed for persistent symptoms, return to the ER for worsening. Vital Signs Vital signs: Initial Vital Signs Temperature 97.3 F L 12/10/24 22:20 Temperature Source Temporal Artery Scan 12/10/24 22:20 Pulse Rate 96 12/10/24 22:20 Respiratory Rate 18 12/10/24 22:20 Blood Pressure 119/91 H 12/10/24 22:20 Blood Pressure Mean 100 12/10/24 22:20 Blood Pressure Position Sitting 12/10/24 22:20 Pulse Oximetry 97 12/10/24 22:20 Oxygen Delivery Method Room Air 12/10/24 22:20 Vital Signs Temperature 97.3 F L 12/10/24 22:20 Pulse Rate 96 12/10/24 22:20 Respiratory Rate 18 12/10/24 22:20 Blood Pressure 119/91 H 12/10/24 22:20 Pulse Oximetry 97 12/10/24 22:20 Oxygen Delivery Method Room Air 12/10/24 22:20 Temperature 97.3 F L 12/10/24 22:20 Pulse Rate 96 12/10/24 22:20 Respiratory Rate 18 12/10/24 22:20 Blood Pressure 119/91 H 12/10/24 22:20 Pulse Oximetry 97 12/10/24 22:20 Oxygen Delivery Method Room Air 12/10/24 22:20 Medical Decision Making Imaging Data Chest x-ray: Attestation: I have reviewed the pertinent imaging results. Radiologist's impression: Patient: SUKHI GOMEZ Facility: [facility] Site . Site : 1955 Study: XRay-Chest 1V-12/10/2024 10:45:06 PM Ordering Physician: So Fernandes Final Report: INDICATION: Cough. TECHNIQUE: Chest 1 view. COMPARISON: 10/15/2021. FINDINGS: Cardiovascular and mediastinum: Cardiomediastinal silhouette is within normal limits. Lungs and pleural spaces: Lungs are clear. No sign of infiltrate or mass. No sign of pleural effusion. No pneumothorax. Bones and soft tissues: Bilateral reverse total shoulder arthroplasty. IMPRESSION: No consolidation. Discharge Plan Discharge Clinical Impression: COVID-19 Additional Instructions: Take the Paxlovid as prescribed. Do not take your atorvastatin for the next week as it can interact with the Paxlovid. You can use Tylenol as needed for aches, headache, fever etcetera. Anticipate gradual improvement of symptoms over the next 7-14 days. See primary care as needed for persistent symptoms. Return to the ER if needed for worsening. Your x-ray tonight is normal, without any evidence of a pneumonia. Prescriptions: New Paxlovid 300 mg (150 mg x 2)-100 mg tablets,dose pack See Rx Instructions .ROUTE .COMPLEX Qty: 30 0RF Rx Instructions: take TWO 150 mg tablets of nirmatrelvir with ONE 100 mg tablet of ritonavir twice daily for 5 days No Action beclomethasone dipropionate 40 mcg/actuation HFA aerosol breath activated 2 inhalation DAILY insulin glargine U-300 conc 300 unit/mL (1.5 mL) insulin pen 52 unit subcut BID dulaglutide 1.5 mg/0.5 mL pen injector 1.5 mg subcut .Every 7 Days Rx Instructions: pregabalin 100 mg capsule 100 mg PO TID duloxetine 20 mg capsule,delayed release(DR/EC) 20 mg PO DAILY insulin aspart U-100 100 unit/mL (3 mL) insulin pen 14 subcut Rx Instructions: BREAKFAST AND SUPPER fluticasone propionate 50 mcg/actuation spray,suspension 2 intranasal DAILY furosemide 20 mg tablet 20 mg PO BID montelukast 10 mg tablet 10 mg PO .Bedtime aspirin 81 mg tablet,chewable 81 mg PO DAILY ferrous sulfate 325 mg (65 mg iron) tablet PO DAILY meloxicam 7.5 mg tablet 7.5 mg PO DAILY acetaminophen 500 mg tablet PO PRN allopurinol 100 mg tablet 100 mg PO DAILY vitamin A 2,400 mcg capsule 8,000 unit PO DAILY atorvastatin 40 mg tablet 40 mg PO .Bedtime losartan 50 mg tablet 50 mg PO DAILY ketorolac 10 mg tablet PO PRN oxycodone 5 mg tablet PO PRN Rx Instructions: As needed for pain: 2.5 mg mild-moderate pain, 5 mg severe. Minimize, wean-off, discontinue as soon as possible. sennosides-docusate sodium 8.6-50 mg tablet 1 PO BID Rx Instructions: Hold medication if experiencing loose stools. zinc sulfate 50 mg zinc (220 mg) capsule PO DAILY ascorbic acid (vitamin C) PO loperamide [Imodium A-D] 2 mg capsule 2 mg PO QID PRN (Reason: loose stool) Qty: 30 0RF buspirone 5 mg tablet 5 mg PO BID cyanocobalamin (vitamin B-12) [Vitamin B-12] 1,000 mcg tablet 1,000 mcg PO DAILY capsaicin [Arthritis Pain Relief(capsaic)] 0.075 % cream topical (DME) OneTouch Verio test strips Strip MISCELLANEOUS 3XD acetaminophen 650 mg tablet extended release 1,300 mg PO BID allopurinol 300 mg tablet 300 mg PO DAILY azelastine 137 mcg (0.1 %) aerosol,spray INTRANASAL Patient Comments: [NO ORIGINAL SIG] loratadine 10 mg tablet 10 mg PO DAILY duloxetine 60 mg capsule,delayed release(DR/EC) 60 mg PO DAILY pregabalin 150 mg capsule 150 mg PO 3XD Trulicity 0.75 mg/0.5 mL pen injector 0.75 mg subcut cephalexin 500 mg capsule 2,000 mg PO ONCE Qty: 4 3RF Rx Instructions: Take 4 capsules (2000mg) 1 hour prior to dental appointment. Follow Up/Referrals: Alondra Negrete MD [Primary Care Provider] -
--- OUTSIDE RECORDS SUMMARY | 2024-12-10 23:11 | XMS_ITS | Clinical Summary ---
Author Organization [facility] Address [address] [facility] , [address] [place] [address] Phone Care Team Providers Care Automat Watcher Name Role Phone Print, Print Unavailable Conditions or Problems Problem Name Problem Code Onset Date Status Entry Date Provider Comment Standard Description Annotate Cancer metastatic to bone 53414768 (SNOMED CT) 10/12 Resolved 10/12 Marcela Hicks PA-C Metastatic malignant neoplasm to bone Cancer metastatic to bone 89403006 (SNOMED CT) 10/12 Removed 10/12 Shruthi Cluka GREEN ENERGY MARKETING ANALYST (AAMA) Metastatic malignant neoplasm to bone Kidney mass 090173932 (SNOMED CT) 10/12 Active 10/12 Shruthi Cluka GREEN ENERGY MARKETING ANALYST (AAMA) Renal mass Abnormal magnetic resonance imaging (MRI) 401378252 (SNOMED CT) 10/12 Active 10/12 Shruthi Cluka GREEN ENERGY MARKETING ANALYST (AAMA) MRI scan abnormal Low back pain, chronic 233466086 (SNOMED CT) 09/27 Active 09/27 Rosy Button-Jackie gher GREEN ENERGY MARKETING ANALYST Chronic low back pain Lumbar radiculopat hy, right 513503801 (SNOMED CT) 09/27 Active 09/27 Rosy Button-Jackie gher GREEN ENERGY MARKETING ANALYST Lumbar radiculopathy Diabetic peripheral neuropathy associated with type 2 diabetes mellitus [id number] 07 (SNOMED CT) 10/31 Active 10/31 Elise Mancuso PA-C Peripheral neuropathy due to type 2 diabetes mellitus Leg pain 77447396 (SNOMED CT) 10/04 Active 10/04 Nathan Brock MD Pain in lower limb [facility], [facility] 10/04 Active 10/04 Nathan Brock MD Carpal tunnel syndrome Medications Medication Instructions Start Date Stop Date Generic Name NDC Provider DULOXETINE HCL 60 MG CPEP TAKE ONE CAPSULE BY MOUTH EVERY DAY duloxetine [id number] Marcela MUNGUIA-Letitia DULOXETINE HCL 60 MG CPEP TAKE ONE CAPSULE BY MOUTH ONCE DAILY duloxetine 02903490619 Marcela MUNGUIA-Letitia DULOXETINE HCL 60 MG CPEP 60 mg by mouth once a day duloxetine 26888307527 Zofia MUNGUIA-Letitia DULOXETINE HCL 60 MG CPEP TAKE ONE CAPSULE BY MOUTH EVERY DAY duloxetine 84966932432 Zofia Fernandez PA-C PREGABALIN 150 MG CAPS Take 1 cap (150 mg) by mouth three times a day. pregabalin 72457368148 Marcela Hicks PA-C PREGABALIN 150 MG CAPS TAKE ONE CAPSULE BY MOUTH THREE TIMES A DAY pregabalin 35817166997 Nathan Brock MD PREGABALIN 150 MG CAPS Take 1 cap (150 mg) by mouth three times a day. pregabalin 52872437720 Marcela Hicks PA-C PREGABALIN 100 MG CAPS pregabalin 90481098741 Nathan Brock MD DULOXETINE HCL 30 MG CPEP duloxetine 91981041659 Nathan Brock MD DULOXETINE HCL 60 MG CPEP 60 mg by mouth once a day duloxetine 07498025493 Nathan Brock MD DULOXETINE HCL 20 MG CPEP duloxetine 06689504554 Nathan Brock MD FLUOXETINE HCL 20 MG CAPS fluoxetine 75329147961 Nathan Brock MD LOSARTAN POTASSIUM-HCTZ 50-12.5 MG TABS losartan-hydroc hlorothiazide 69518297047 Nathan Brock MD Novolog U-100 Insulin aspart 100 unit/mL solution insulin aspart u-100 68564361576 Nathan Brock MD ATORVASTATIN CALCIUM 40 MG TABS atorvastatin 98444120925 Nathan Brock MD LANTUS SOLOSTAR 100 UNIT/ML SOPN insulin glargine 28509674697 Nathan Brock MD FERROUS SULFATE 325 (65 Fe) MG TABS ferrous sulfate 48734455464 Nathan Brock MD AMLODIPINE BESYLATE 5 MG TABS amlodipine 40477911810 Nathan Brock MD METFORMIN HCL 1000 MG TABS metformin 58080450551 Nathan Brock MD GABAPENTIN 300 MG CAPS 600 mg TID gabapentin 48310507392 Nathan Brock MD FLUOXETINE HCL 40 MG CAPS fluoxetine 08133221584 Nathan Brock MD TRULICITY 0.75 MG/0.5ML SOAJ dulaglutide 85838903959 Nathan Brock MD LYRICA 50 MG CAPS 1 cap by mouth two times per day for diabetic peripheral neuropathy. pregabalin 66839437487 Nathan Brock MD TRULICITY 3 MG/0.5ML SOAJ dulaglutide 43703065423 Nathan Brock MD TOUJEO SOLOSTAR 300 UNIT/ML SOPN insulin glargine u-300 conc 01774469785 Nathan Brock MD FEROSUL 325 (65 Fe) MG TABS ferrous sulfate 22509949887 Nathan Brock MD PREGABALIN 100 MG CAPS pregabalin 30671030367 Nathan Brock MD DULOXETINE HCL 20 MG CPEP duloxetine 07610948122 Nathan Brock MD DULOXETINE HCL 30 MG CPEP duloxetine 31397377009 Nathan Brock MD FLUOXETINE HCL 20 MG CAPS fluoxetine 33329414386 Nathan Brock MD FUROSEMIDE 20 MG TABS furosemide 17794007070 Nathan Brock MD aspirin 81 mg tablet,chewable aspirin 31656071961 Nathan Brock MD LORATADINE 10 MG TABS loratadine 52649413533 Nathan Brock MD FLUTICASONE PROPIONATE 50 MCG/ACT SUSP fluticasone propionate 21052629269 Nathan Brock MD AZELASTINE HCL 0.1 % SOLN azelastine 12925634846 Nathan Brock MD MONTELUKAST SODIUM 10 MG TABS montelukast 67267079196 Nathan Brock MD ALLOPURINOL 100 MG TABS allopurinol 71193427553 Nathan Brock MD LOSARTAN POTASSIUM 50 MG TABS losartan 39583285555 Nathan Brock MD ATORVASTATIN CALCIUM 40 MG TABS atorvastatin 93816185874 Nathan Brock MD LYRICA 50 MG CAPS 1 cap by mouth two times per day for diabetic peripheral neuropathy. PREGABALIN 46025381521 Elise Mancuso PA-C GABAPENTIN 300 MG CAPS 600 mg TID GABAPENTIN 41479753626 Nathan Brock MD GABAPENTIN 300 MG CAPS 1 cap by mouth three times per day for peripheral neuropathy. GABAPENTIN 06449020363 Elise Mancuso PA-C LOSARTAN POTASSIUM-HCTZ 50-12.5 MG TABS LOSARTAN POTASSIUM-HCTZ 30187906960 Nathan Brock MD AMLODIPINE BESYLATE 5 MG TABS AMLODIPINE BESYLATE 84404992223 Nathan Brock MD NOVOLOG 100 UNIT/ML SUBCUTANEOUS SOLUTION INSULIN ASPART 44764066109 Nathan Brock MD METFORMIN HCL 1000 MG TABS METFORMIN HCL 15715720348 Nathan Brock MD FLUOXETINE HCL 40 MG CAPS FLUOXETINE HCL 55211377804 Nathan Brock MD ATORVASTATIN CALCIUM 40 MG TABS ATORVASTATIN CALCIUM 69142903229 Nathan Brock MD TRULICITY 0.75 MG/0.5ML SOAJ DULAGLUTIDE 78682333187 Nathan Brock MD LANTUS SOLOSTAR 100 UNIT/ML SOPN INSULIN GLARGINE 77186588492 Nathan Brock MD GABAPENTIN 300 MG CAPS GABAPENTIN 50508360316 Nathan Brock MD FERROUS SULFATE 325 (65 Fe) MG TABS FERROUS SULFATE 55439836246 Nathan Brock MD Medications Administered No information [...] Entry Date ORDERS Instructions for Staff 02/05 [id number] EPI-Lumbar Epidural Steroid Injection 202 09/24/19 [id number] EPI-Lumbar Epidural Steroid Injection 202 09/23/29 [facility]-[id number] Documentation of current medicatio ns ORDERS Follow up [id number] Other Referral ORDERS Physical Therapy ORDERS Follow up [id number] MRI-Lumbar W/O ORDERS Follow up CURTIS after testing ORDERS EMG bilateral low ext 08/22 CPT-31206 Nerve Conduction 7-8 studies CPT-17997 EMG with NCS (5+ muscles) - 1 limb 09/13 CPT-75597 EMG with NCS (4 or fewer muscles) - 1 kim b [facility]-[id number] Documentation of current medicatio ns ORDERS Follow up ORDERS Follow up ORDERS Patient Instructions ORDERS Patient Instructions [facility]-[id number] Documentation of current medicatio ns ORDERS Ferritin Serum ORDERS Follow up ORDERS Patient Instructions [facility]-[id number] Documentation of current medicatio ns ORDERS Patient Notification ORDERS Transition of Care Referral [facility]-[id number] Other Test ORDERS Ferritin Serum Vital Signs [...]
--- OUTSIDE RECORDS SUMMARY | 2024-12-10 23:12 | XMS_ITS | Clinical Summary ---
Author Organization [facility] Address [address] [place] [address] Care Team Providers Care Macerator Operator Name Role Phone BkRangel stearns Unavailable Unavailable Alondra Negrete MD Primary Care Provider Kathy Campo RN Unavailable ChemYanet zacarias RN Unavailable Aliyah Hillman RN [...] be used to read blood sugars per headline writer's directions. 6 Each 3 024 Active atorvastatin [...] 11/03/2010 Overview (05/26/2012): Normal Angiogram 06/2009 at [place]. Negative Nuclear Stress Test 04/2012 colonoscopy reportedly within normal limits approximately 2004 in [place], [place] 11/03/2010 Unspecified essential hypertension 11/03/2010 Mixed [...] Description 12/10/2024 1:15 PM CDT Office Visit [facility] [address] [place] [address] Lara Bui PA Derm Problem (Red toes) 12/10/2024 Telephone [facility] [address] [place] [address] Arslan Rosa DPM Appointment Request 12/09/2024 Travel 12/08/2024 1:20 PM CDT Telemedicine [facility] [address] [place] [address] Lara Bui PA Derm Problem (Foot) 12/08/[address] [address] Alondra Negrete MD Refill Request (Prevail Pads) 12/08/[address] [address] Alondra Negrete MD Refill Request (Pregabalin, Furosemide, Aspirin Chewable, Buspirone, Cyanocobalamin) 12/08/2024 Travel 12/07/2024 Travel 11/25/2024 Travel 11/16/[address] [address] Alondra Negrete MD Medication Management 11/16/[address] [address] Alondra Negrete MD Medication Management (insulin aspart, U-100, (NovoLOG Flexpen U-100 Insulin) 100 unit/mL (3 mL) pen/) 11/02/2024 9:40 AM CDT Ancillary Procedure [address] [address] 11/02/[address] [address] Alondra Negrete MD Results (mammogram ) 11/02/[address] [address] Alondra Negrete MD Refill Request (Ulticare Pen Needle) 11/01/2024 Travel 10/27/[address] [address] Alondra Negrete MD Refill Request (Allopurinol) 10/23/2024 Travel 10/08/[address] [address] Aisha Borden MD Medication Problem 10/08/2024 Nurse Triage [address] [address] Alondra Negrete MD Medication Problem 10/08/2024 Nurse Triage [address] [address] Alondra Negrete MD 09/29/[address] [address] Alondra Negrete MD Refill Request (Duloxetine) 09/25/2024 9:30 AM AUTO RESEARCH ENGINEER Telemedicine [facility] [address] [place] [address] Jocelyn Cabrera PA Telehealth (Sinus symptoms) 09/25/2024 Travel 09/21/2024 11:20 AM AUTO RESEARCH ENGINEER Telemedicine [facility] [address] [place] [address] Jocelyn Cabrera PA Telehealth (Sinus symptoms) 09/21/2024 Travel 09/17/2024 Telephone [facility] [address] [place] [address] Alondra Negrete MD Medication Management (Clarification needed. [...] on file Legal Sex Female 5:20 AM AUTO RESEARCH ENGINEER Gender Identity Not on file Sexual Orientation [...] Description 12/17/2024 1:30 PM CDT Office Visit [facility] [place] [address] [facility] [address] [place] [phone] Arslan Rosa, GRA[place] [address] [place] [address] Health Maintenance Due Date Last Done Comments COVID-19 vaccine series ( season) 2024 04/27/2024, 05/16/2023, 02/14/2023, Additional history exists Fecal testing sDNA-FIT (Rumsey guard) for age 45-75 12/24/2024 12/24/2021, 12/24/2021 [...] 08/21/2018, 02/23/2011 Medical Devices Implanted Type Area French Translator Device Identifier Shelf Expiration Date Model / Serial / Lot Murray Lmbr 70x5.5mm Tsrh 3d Cvd Titnm - [id number] Implanted:Qty: 2 on 09/12/2016 by Grzegorz Echavarria MBChB at [facility] Spine Implants N/A: Spine Medtronic Spine/Ortho [id number]# / / [id number] one 1-4mm 30cc Medtronic Chips Canclls Frozen Implanted:Qty: 1 on 09/12/2016 by Grzegorz Echavarria MBChB at [facility] Explanted:at [facility] (Quantity not on file) N/A: Spine Medtronic Spine/Ortho 01/08/2019 [id number]# / [id number] / [id number] one 1-4mm 30cc Medtronic Chips Canclls Frozen Implanted:Qty: 1 on 09/12/2016 by Grzegorz Echavarria MBChB at [facility] Explanted:at [facility] (Quantity not on file) N/A: Spine Medtronic Spine/Ortho 01/12/2019 [id number]# / [id number] / Dura Neuro 1x1in Duragen Plus Non-Sut - [id number] Implanted:Qty: 1 on 09/12/2016 by Grzegorz Echavarria MBChB at [facility] N/A: Spine Integra Lifesciences Naa 05/18/2019 [id number]-[id number]# / / [id number] Set Screw Lmbr Tsrh 3dx - [id number] Implanted:Qty: 6 on 09/12/2016 by Grzegorz Echavarria MBChB at [facility] N/A: Spine Medtronic Spine/Ortho [id number]# / / Cnnctr Lmbr Sm Tsrh 3dx Offsettitnm - [id number] Implanted:Qty: 6 on 09/12/2016 by Grzegorz Echavarria MBChB at [facility] N/A: Spine Medtronic Spine/Ortho [id number]# / / Screw Lmbr Post 6.5x40mm Ts 3dx Og Thin Va - [id number] Implanted:Qty: 6 on 09/12/2016 by Grzegorz Echavarria MBChB at [facility] N/A: Spine Medtronic Spine/Ortho [id number]# / / Procedures Procedure Name Priority Date/Time [...] cancer ANTI HCV Routine 07/20/2019 3:33 PM AUTO RESEARCH ENGINEER Need for hepatitis C screening test from [...] care provider. XR MAMMO JAMES BILAT SCREEN [[id number]] CLINICAL HISTORY: This is an asymptomatic 69 y.o. patient. INDICATION FOR EXAM: Mammogram Screening. TECHNIQUE: CC and MLO views were obtained. This study was evaluated with the assistance of Computer-Aided Detection. Breast Tomosynthesis was used in interpretation. COMPARISON FILM: Yes 10/24/23 [facility] 06/11/22 [facility] [employer] FINDINGS: There are scattered areas of fibroglandular [...] recommended in 3-5 years. Cydney Smith PA-C [facility] 06/12/2024 Narrative 06/12/2024 4:10 PM CDT For Patients: Results are automatically released to your [employer] ([employer]) account once available, in compliance with federal regulations. This means that you may see your results before your provider has had a chance to review them. Please allow 2-3 business days for your provider to comment on the results. XR DXA Bone Mineral Density (BMD) EXAM LOCATION: [facility] [address] [facility] [address] PATIENT NAME: Jessica Gutiérrez DATE OF : [...] two scanners are made by the same headline writer. PROCEDURE: Dual-energy x-ray absorptiometry performed with routine [...] CHOLESTEROL,TOTAL 182 mg/dL 023 9:20 PM CDT [facility] Comment: Cholesterol, Total Reference Ranges Desirable <200 mg/dL Borderline 200-239 mg/dL High >=240 mg/dL TRIGLYCERIDES 145 <150 mg/dL 12/26/2022 9:20 PM CDT [facility] HDL CHOLESTEROL 39(L) >40 mg/dL 9:20 PM CDT [facility] NON-HDL CHOLESTEROL 143 <145 mg/dl 12/26/2022 9:20 PM CDT [facility] CHOL/HDL RATIO 4.67(H) <4.50 12/26/2022 9:20 PM CDT [facility] LDL CHOLESTEROL 114 <=130 mg/dL 12/26/2022 9:20 PM CDT [facility] VLDL CHOLESTEROL 29 <=30 mg/dL 12/26/2022 9:20 PM CDT [facility] PROVIDER ORDERED STATUS RANDOM 12/26/2022 9:20 PM CDT [facility] Blood BLOOD SPECIMEN / Unknown Venipuncture / Unknown 12/26/2022 8:45 AM CDT 12/26/2022 8:49 AM CDT us Alondra Negrete MD CHEMISTRY Final R esult [facility] [address] [place] [address], [place] * FECAL DNA (AKA COLOGUARD) (12/24/2021 12:00 AM CDT) us Alondra Negrete MD COMMUNICATION ORD Edite d Result - Final * ANTI HCV (07/20/2019 3:33 PM AUTO RESEARCH ENGINEER) HEPATITIS C ANTIBODY Non-React tashi Non-React tashi 07/21/2019 2:13 PM AUTO RESEARCH ENGINEER [facility] Comment:Antibodies to HCV no t detected; does not exclude the possibility of exposure to HCV. Blood BLOOD SPECIMEN / Unknown Venipuncture / Unknown 07/20/2019 3:33 PM AUTO RESEARCH ENGINEER 07/20/2019 3:33 PM AUTO RESEARCH ENGINEER us Alondra Negrete MD SEND OUTS Final R esult [facility] [address] [place] [address], from Last 3 Months or Most Recently Relevant to Health Maintenance Insurance [facility] Advance Directives Documents on File Type Date Recorded Patient Host Coordinator Expl anation POLST 03/25/2019 10:48 AM GIGI BERNSTEIN, 03/24/19 Healthcare Directive 09/14/2016 2:33 PM ELOISA LEÓN, 08/11/2016 * Full Code (Latest Code Status on File) Date Activated Date Inactivated Comments 09/12/2016 7:25 PM 09/15/2016 12:58 PM * Full Code Date Activated Date Inactivated Comments 09/12/2016 6:35 AM 09/12/2016 5:05 PM Question Answer Comments Code Status Discussion: Not Discussed Care Teams Macerator Operator Relationship Specialty Start Date End Date Alondra Negrete MD [address] [place] [address] PCP - General Family Practice 05/06/17 Rangel Nelson Personnel Director 02/11/12 Kathy Campo RN [address] [facility] [address] [place] [address] Crude Tester - [facility] Registered Nurse 06/19/18 Yanet Burt RN [address] [facility] [place], [place] [id number] Crude Tester - [facility] Registered Nurse 06/19/18 Aliyah Hillman RN [address] [facility] [address] [place] [address] Crude Tester - [facility] Registered Nurse 06/08/21
[2024-12-10 23:41] LABS: Creatinine, Point-of-Care* 0.9 mg/dl (0.6-1.3)
== END 2024-12-10 23:12 | disposition home or self-care (01) ==
LOC: ED 23:09
PROVIDERS: Emergency Provider Emergency Medicine; PCP Family Medicine
DX: U07.1 COVID-19 (principal)
CPT/HCPCS: 71045; 82565; 99283; 99284

== ENCOUNTER 2025-03-05 13:00 | Outpatient (RCR) | payer OTHER, SELFPAY | END 2025-07-03 23:59 | disposition home or self-care (01) | PROVIDERS: PCP Family Medicine; Visit Provider Physician Assistant | DX: M25.571 Pain in right ankle and joints of right foot (principal); G89.29 Other chronic pain; Z51.89 Encounter for other specified aftercare | CPT/HCPCS: 97110; 97112; 97116; 97140; 97162 ==

== ENCOUNTER 2025-06-08 15:04 | Emergency (ER) | payer OTHER, SELFPAY ==
--- OUTSIDE RECORDS SUMMARY | 2025-06-08 15:07 | XMS_ITS | Clinical Summary ---
Author Organization [facility] Address [facility] [place] [address] Care Team Providers Care Layout Operator Name Role Phone Rangel Nelson Unavailable Unavailable Kathy Campo RN Unavailable [phone] Yanet Burt RN Unavailable [phone] Aliyah Hillman RN Unavailable Alondra Negrete MD Primary Care Provider Allergies Active Allergy Reactions Criticality Noted Date Comments Adhesive Tape Rash 12/30/2007 Lisinopril Cough 05/25/2010 Intolerance Penicillins Hives 12/30/2007 Sulfa (Sulfonamide Antibiotics) Hives,Itching 0 12/30/2007 Unlisted Allergen (Include D etail In Comments) Hives Low 11/03/2020 Medications blood-glucose meterIndications :Diabetes mellitus with peripheral circulatory disorder, controlled (HC) Dispense meter, test strips, lancets covered by pt ins. E11.9 IDDM type II - Test 2 times/day. 1 Device 020 Active clindamycin (CLEOCIN) 300 mg capsule 600 mg by mouth prior to dental appointment 21 capsule 020 Active ONETOUCH DELICA PLUS LANCET 33 gauge miscIndications: Insulin dependent type 2 diabetes mellitus, uncontrolled USE TO TEST THREE TIMES A DAY DIRECTED 100 Each 2 020 Active nystatin (MYCOSTATIN) creamIndications :Yeast infection of the skin Apply topically to affected area(s) 2 times daily. 60 g 3 022 Active durable medical equipment (DME)Indications :Essential hypertension Automated blood pressure cuff for home use. Length of need 99. 1 Each 022 Active CaneIndications: Spinal stenosis, lumbar region, without neurogenic claudication Wide Base Quad Cane for home use.(Pt requesting Hurry Cane) Length of need 99. 1 Each 022 Active durable medical equipment (DME)Indications :Spinal stenosis, lumbar region, without neurogenic claudication 4 wheeled walker. Current walker is broken and unrepairable. Length of need 99. Patient has ongoing/lifetime need of 4 wheeled walker due to spinal stenosis. 1 Each 022 Active capsaicin 0.075% topical (ZOSTRIX-HP) 0.075 % topical creamIndications :Diabetic polyneuropathy associated with type 2 diabetes mellitus (HC) Apply topically to affected area(s) three times daily. 57 g 3 023 Active Blood Pressure Monitor KitIndications:H TN (hypertension) Frequency of testing: daily Large cuff. For home use, length of need 99 1 Each 024 Active Diabetic ShoeIndications: Diabetes mellitus with peripheral circulatory disorder, controlled (HC) As directed. 1 Each 024 Active acetaminophen (TYLENOL EXTRA STRGTH) 500 mg tabletIndication s:Chronic right-sided low back pain with right-sided sciatica Take 1-2 Tablets (500-1,000 mg) by mouth every 6 hours if needed for Pain. Max acetaminophen dose: 4000mg in 24 hrs. 150 Tablet 3 024 Active nystatin powder (MYCOSTATIN) powderIndication s:Yeast infection of the skin Apply 1 Strip topically to affected area(s) three times daily. 60 g 5 024 Active glucose (TRUEplus Glucose) 4 gram chewable tabletIndication s:Type 2 diabetes mellitus with diabetic polyneuropathy, with long-term current use of insulin (HC) Chew 1 Tablet (4 g) by mouth each time if needed for Blood Gluc < 60 mg/dL. 30 Tablet 6 024 Active Shower ChairIndications :Spinal stenosis, lumbar region, without neurogenic claudication For home use. 1 Each 024 Active miscellaneous medical supply miscIndications: Lymphedema of both lower extremities Velcro lymphedema wraps - knee high - 30-40mmHg 1 left leg, 1 right leg 2 unit 024 Active lancetsIndicatio ns:Type 2 diabetes mellitus with diabetic polyneuropathy, with long-term current use of insulin (HC) Test 3 times per day. 100 Each 3 024 Active blood sugar diagnostic (OneTouch Ultra Test) stripIndications :Type 2 diabetes mellitus without complication, with long-term current use of insulin (HC) TEST THREE TIMES DAILY DIRECTED 300 Each 3 024 Active insulin glargine U-300 (Toujeo SoloStar U-300 Insulin) 300 unit/mL (1.5 mL) penIndications:C ontrolled type 2 diabetes mellitus with complication, with long-term current use of insulin (HC) Inject 62 units subcutaneous before breakfast. 20 mL 3 025 Active aspirin chewable 81 mg chewable tabletIndication s:Diabetes mellitus with peripheral circulatory disorder, controlled (HC),Stage 3 chronic kidney disease, unspecified whether stage 3a or 3b CKD (HC) CHEW & SWALLOW 1 TABLET BY MOUTH DAILY WITH FOOD 90 Tablet 3 025 Active cyanocobalamin 1,000 mcg tabletIndication s:Diabetic polyneuropathy associated with type 2 diabetes mellitus (HC),B12 deficiency TAKE 1 TABLET BY MOUTH DAILY 90 Tablet 2 025 Active pregabalin 150 mg capsuleIndicatio ns:Peripheral sensory neuropathy TAKE 1 CAPSULE BY MOUTH TWICE A DAY 120 Capsule 3 025 Active CPAPIndications: LARRY (obstructive sleep apnea) RESMED CPAP (E0601) machine for home use at pressure: 4-15 cmw , Choice of mask (A7030 or A7034) w/full face cushion (A7031) x1-2/mo, nasal cushion (A7032) x2/mo, or nasal pillows (A7033) x 2/mo; Length of Need: 99 months; Frequency of use: Daily 1 Each 3 025 Active latanoprost (XALATAN) 0.005 % ophthalmic solution 025 Active brimonidine 0.2 % ophthalmic solution 025 Active pen needle (UltiCare Pen Needle) 29 gauge x 1/2 (disposable insulin pen needle)Indicatio ns:Diabetes mellitus without complication (HC),Diabetes mellitus with peripheral circulatory disorder, controlled (HC) USE TO ADMINISTER INSULIN AT HOME DIRECTED. 400 Each 3 025 Active allopurinoL (ZYLOPRIM) 300 mg tabletIndication s:Gout, unspecified cause, unspecified chronicity, unspecified site TAKE 1 TABLET BY MOUTH DAILY 90 Tablet 025 Active atorvastatin (LIPITOR) 40 mg tabletIndication s:Mixed hyperlipidemia TAKE 1 TABLET BY MOUTH DAILY 90 Tablet 2 025 Active losartan (COZAAR) 50 mg tabletIndication s:HTN (hypertension) TAKE 1 TABLET BY MOUTH DAILY 90 Tablet 2 025 Active FreeStyle Laurent 3 Plus Sensor for continuous blood glucose monitor (CGM)Indications :Diabetes mellitus with peripheral circulatory disorder, controlled (HC) To be used to read blood sugars, change sensor every 15 days. 6 Each 3 025 Active substation operator helper (FreeStyle Laurent 3 [place]) for continuous blood glucose monitor (CGM)Indications :Diabetes mellitus with peripheral circulatory disorder, controlled (HC) To be used to read blood sugars follow observer helper directions. 1 Each 025 Active sennosides-docus ate (SENOKOT S) (8.6-50 mg) tabletIndication s:Constipation, acute Take 1 Tablet by mouth once daily. 5 Tablet 025 Active Incontinence Pad, Liner, Disp (Prevail Pads) padsIndications: Mixed stress and urge urinary incontinence USE THE PADS THREE TIMES A DAY NEEDED FOR URINARY INCONTINENCE 132 Each 025 Active Mounjaro 15 mg/0.5 mL penIndications:T ype 2 diabetes mellitus without complication, with long-term current use of insulin (HC) INJECT 15MG UNDER THE SKIN ONCE A WEEK. (STORE IN ORIGINAL CARTON TO PROTECT FROM LIGHT. IF NEEDED, CAN BE STORED UNREFRIGERATED AT TEMPS UP TO 86 DEGREES F FOR 21 DAYS.) 10 mL 025 Active DULoxetine (CYMBALTA) 60 mg Delayed-release capsuleIndicatio ns:Chronic midline low back pain with right-sided sciatica TAKE 1 CAPSULE BY MOUTH DAILY 90 Capsule 2 025 Active busPIRone (BUSPAR) 5 mg tabletIndication s:Anxiety Take 1 Tablet (5 mg) by mouth two times daily. 180 Tablet 3 025 Active fluticasone (50 mcg per actuation) nasal solution (FLONASE)Indicat ions:Allergic rhinitis, unspecified seasonality, unspecified trigger Inhale 2 Sprays in both nostrils once daily. 18.2 mL 11 025 Active furosemide (LASIX) 20 mg tabletIndication s:Edema of both legs TAKE 2 TABLETS BY MOUTH EVERY MORNING AND TAKE 1 TABLET BY MOUTH IN THE AFTERNOON AT 2:00PM DIRECTED 270 Tablet 3 025 Active loratadine (CLARITIN) 10 mg tabletIndication s:Seasonal allergies Take 1 Tablet (10 mg) by mouth once daily. 90 Tablet 3 025 Active montelukast (SINGULAIR) 10 mg tabletIndication s:Seasonal allergies Take 1 Tablet (10 mg) by mouth at bedtime. 90 Tablet 3 025 Active insulin aspart (U-100) (NovoLOG Flexpen U-100 Insulin) 100 unit/mL (3 mL) penIndications:C ontrolled type 2 diabetes mellitus with complication, with long-term current use of insulin (HC) INJECT 25 UNITS BEFORE BREAKFAST, LUNCH AND DINNER 60 mL 11 025 Active acetaminophen SR (TYLENOL ARTHRITIS) 650 mg Extended-Release tabletIndication s:Lumbar foraminal stenosis 1-2 oral twice daily as needed. Max acetaminophen dose: 4000mg in 24 hrs. 120 Tablet 5 022 2024 Discontinued(* Patient states no longer taking) azelastine 137 mcg/actuation (ASTELIN) nasal sprayIndications :Seasonal allergic rhinitis, unspecified trigger Inhale 2 Sprays into affected nostril(s) two times daily. 10 mL 3 022 2024 Discontinued(* Patient states no longer taking) tirzepatide (MOUNJARO) 15 mg/0.5 mL penIndications:T ype 2 diabetes mellitus without complication, with long-term current use of insulin (HC) Inject 15 mg subcutaneous once weekly. 6 mL 3 024 2024 Discontinued loratadine (CLARITIN) 10 mg tabletIndication s:Seasonal allergies Take 1 Tablet (10 mg) by mouth once daily. 90 Tablet 2 024 2024 Discontinued(R eorder (E-cancel not sent)) Diabetic ShoeIndications: Diabetes mellitus with peripheral circulatory disorder, controlled (HC) As directed. Diabetic shoes for home use. Length of need 99 1 Each 025 2024 Discontinued(* Patient states no longer taking) fluticasone (50 mcg per actuation) nasal solution (FLONASE)Indicat ions:Allergic rhinitis, unspecified seasonality, unspecified trigger Inhale 2 Sprays in both nostrils once daily. 18.2 mL 025 2024 Discontinued(R eorder (E-cancel not sent)) DULoxetine (CYMBALTA) 60 mg Delayed-release capsuleIndicatio ns:Chronic midline low back pain with right-sided sciatica Take 1 Capsule (60 mg) by mouth once daily. Managed by neurology 90 Capsule 2 025 2024 Discontinued insulin aspart (U-100) (NovoLOG Flexpen U-100 Insulin) 100 unit/mL (3 mL) penIndications:C ontrolled type 2 diabetes mellitus with complication, with long-term current use of insulin (HC) INJECT 25 UNITS BEFORE EACH MEAL 60 mL 025 2024 Discontinued(R eorder (E-cancel not sent)) busPIRone 5 mg tabletIndication s:Anxiety TAKE 1 TABLET BY MOUTH TWICE A DAY 180 Tablet 1 025 2024 Discontinued(R eorder (E-cancel not sent)) Incontinence Pad, Liner, Disp (Prevail Pads) padsIndications: Mixed stress and urge urinary incontinence USE THE PADS THREE TIMES A DAY NEEDED FOR URINARY INCONTINENCE 132 Each 3 025 2024 Discontinued(R eorder (E-cancel not sent)) furosemide (LASIX) 20 mg tabletIndication s:Edema of both legs TAKE 2 TABLETS BY MOUTH EVERY MORNING AND TAKE 1 TABLET BY MOUTH IN THE AFTERNOON AT 2:00PM DIRECTED 270 Tablet 2024 Discontinued(R eorder (E-cancel not sent)) montelukast (SINGULAIR) 10 mg tabletIndication s:Seasonal allergies TAKE 1 TABLET BY MOUTH AT BEDTIME 90 Tablet 2024 Discontinued(R eorder (E-cancel not sent)) continuous glucose monitor SENSOR KIT (FreeStyle Laurent 2 Sensor)Indicatio ns:Controlled type 2 diabetes mellitus with complication, with long-term current use of insulin (HC) TO BE USED TO READ BLOOD SUGAR PER ICE CREAM DIPPER'S DIRECTIONS - CHANGE EVERY 14 DAYS 6 Each 3 2024 Discontinued(* Patient states no longer taking) doxycycline hyclate 100 mg capsuleIndicatio ns:Acute non-recurrent maxillary sinusitis Take 1 Capsule (100 mg) by mouth two times daily for 7 days. 14 Capsule 025 2024 COVID-19 antigen test (COVID-19 At-Home Test) kitIndications:E ncounter for screening for COVID-19 As directed. 2 Kit 3 2024 Discontinued(* Patient states no longer taking) sodium phosphates (FLEETS) enemaIndications :Constipation, acute Insert 133 mL rectally one time for 1 dose. follow package directions 133 mL 025 2024 insulin aspart (U-100) (NovoLOG Flexpen U-100 Insulin) 100 unit/mL (3 mL) penIndications:C ontrolled type 2 diabetes mellitus with complication, with long-term current use of insulin (HC) INJECT 25 UNITS BEFORE EACH MEAL 60 mL 11 025 2024 Discontinued(R eorder (E-cancel not sent)) Active Problems Problem Noted Date Diagnosed Date [...] pulmonary embolus (PE) 09/11/2016 Overview (09/11/2016): In 2002 provoked following left total knee arthroplasty CKD [...] 11/03/2010 Overview (05/26/2012): Normal Angiogram 06/2009 at [facility]. Negative Nuclear Stress Test 04/2012 colonoscopy reportedly within normal limits approximately 2004 in [place], [place] 11/03/2010 Unspecified essential hypertension 11/03/2010 Mixed [...] Encounters Date Type Department Care Team Description 06/08/2025 Travel 06/07/2025 2:30 PM CDT Office Visit [facility] [address] [place] [address] Doni Acosta MD Sleep Follow-up 06/07/2025 Travel 06/07/2025 Telephone [facility] [address] [place] [address] Alondra Negrete MD Form 06/04/2025 11:45 AM CDT Office Visit [facility] [address] [facility] [place] [address] Alondra Negrete MD Medicare ANNUAL (subsequent) Visit (69 yr/); Diabetes; Medication Management (Two pharmacies for medication Insulins and flonase go to [facility] and all other medications go to [facility] mail service and Inc[facility] pads go to [facility]) 06/04/2025 Telephone [facility] [address] [facility] [place] [address] Alondra Negrete MD Pharmacist Medication Management (insulin aspart (U-100) (NovoLOG Flexpen U-100 Insulin) 100 unit/mL (3 mL) pen ) 06/03/2025 Travel 06/02/2025 Travel 06/02/[address] [place] [address] Alodnra Negrete MD Appointment 06/01/2025 Travel 06/01/[address] [place] [address] Alondra Negrete MD Refill Request (Duloxetine) 06/01/[address] [address] Alondra Negrete MD Refill Request (Mounjaro) 05/14/2025 11:05 AM CDT Office Visit [facility] [address] [place] [address] Lara Bui PA Constipation (very hard stools, now causing some rectal bleeding. ) 05/14/[address] [address] Lara Bui PA Pharmacist Medication Management 05/13/2025 Travel 05/13/2025 Nurse Triage [address] [address] Alondra Negrete MD Rectal Problem (bleeding); Constipation (Hard stool x 1) 05/12/2025 10:00 AM CDT Nurse/Clinic Staff Only [facility] [address] [place] [address] Dressing Change 05/12/2025 Travel 05/10/2025 9:40 AM CDT Nurse/Clinic Staff Only [facility] [address] [place] [address] Dressing Change (4x4 mepilex border to gluteal cleft ) 05/10/2025 Travel 05/08/2025 Travel 05/07/2025 10:30 AM CDT Ancillary Procedure [facility] [address] [place] [address] 05/07/2025 9:40 AM CDT Nurse/Clinic Staff Only [facility] [address] [place] [address] Dressing Change 05/06/2025 Travel 05/05/2025 10:20 AM CDT Office Visit [facility] [address] [place] [address] Edna Negron PA Wound Check (has spot on backside, right under tailbone that is raw/bloody, noticed in the shower and had blood on her washcloth 4 days ago. now painful. ) 05/05/2025 Travel 05/03/2025 9:50 AM CDT Telemedicine [facility] [address] [place] [address] Lara Bui PA URI (possible sinus infection; ongoing for 5 days. not improving. runny nose, sinus headache and pressure. ) 05/03/2025 Refill [facility] [address] [place] [address] Alondra Negrete MD Refill Request (Losartan) 05/03/2025 Travel 04/30/2025 Travel 04/29/2025 9:40 AM CDT Office Visit [facility] [address] [place] [address] Teresa Whyte MD Consult (Lump on left paiz from knee surgery 7 years ago, recently became swollen ) 04/28/2025 Travel 04/27/2025 Nurse Triage [facility] Nurse Triage Alondra Negrete MD Knee Pain/problem 04/27/2025 Nurse Triage [facility] [address] [facility] [place] [address] Alondra Negrete MD Error-please disregard 04/27/2025 Refill [facility] [address] [facility] [place] [address] Alondra Negrete MD Refill Request (Allopurinol, Atorvastatin) 04/13/2025 Refill [facility] [address] [facility] [place] [address] Alondra Negrete MD Refill Request (Freestyle Laurent 2 Sensor) 03/22/2025 Travel 03/16/2025 Refill [facility] [address] [facility] [place] [address] Alondra Negrete MD Refill Request (Furosemide, Montelukast) from Last 3 Months Immunizations Immunization Administration Dates Next Due AMB Influenza, IIV4 PF (=>6 mos Flulaval,Fluzone Fluarix)(Flu Clinic Only) 06/12/2016 COVID-19 VACCINE SPIKEVAX (M ODERNA 50MCG/0.5ML) 12YO+ PFS 05/16/2023 COVID-19 vaccine (Moderna 100mcg/0.5mL) PF, V 11/27/2021,06/21/2021,10/12/2020,09/14 COVID-19 vaccine (Pfizer-Bio NTech 30mcg/0.3mL) 12YO+ [...] Inactivated IIV3 (Age 65+ Years) Preserv Free 04/28/2025,04/23/2019 Pneumococcal Conj 20-valent (Prevnar 20) 02/10/2025 Pneumococcal Poly,23-Valent (Pneumovax) 07/30/2019,06/19/2011,08/19/2007,06/11,05/19/2004 Pneumococcal conj 13-Valent [...] Answer Date Recorded PHQ-2 TOTAL SCORE 0 06/04/2025 Social Connections Answer Date Recorded Do you often feel lonely or isolated from those around you? 0 03/01/2025 Alcohol Use Answer Date Recorded How often do you have a drink containing alcohol ? 0 05/05/2025 How many drinks containing a lcohol do you have on a typical day when you are drinking? 0 05/05/2025 How often do you have five or more drinks on one occasion? 0 05/05/2025 Financial Resource Strain Answer Date R ecorded Difficulty of Paying Living Expenses 3 03/01/2025 Difficulty of Paying Living Expenses Not on file 03/01/2025 Food Insecurity Answer Date Recorded Do you worry your food will run out before you are able to buy more? 1 03/01/2025 Transportation Needs Answer Date Record ed Does lack of transportation keep you from medica l appointments? 1 03/01/2025 Does lack of transportation keep you from work, meetings or getting things that you need? 1 03/01/2025 Housing Stability Answer Date Recorded What is your housing situation today? 1 03/01/2025 Utilities Answer Date Recorded Do you have trouble paying f or utilities (for example, heat, electricity, water, phone)? 1 03/01/2025 Comments No Sex and Gender Information Value Date Recorded Sex Assigned at Not on file Legal Sex Female 5:20 AM DIRECTOR OF DISTRIBUTION Gender Identity Not on file Sexual Orientation [...] Sign Reading Time Taken Comments Blood Pressure 153/78 06/07/2025 2:20 PM CDT Pulse 78 06/07/2025 2:20 PM CDT Temperature 36.6 C (97.8 F) 04/06/2024 10:14 AM CDT Respiratory Rate 18 11/28/2021 3:34 PM CDT Oxygen Saturation 97% 06/07/2025 2:20 PM CDT Inhaled Oxygen Concentration - - Weight 114.8 kg (253 lb) 06/07/2025 2:20 PM CDT Height 154.9 cm (5' 1) 06/07/2025 2:20 PM CDT Body Mass Index 47.8 06/07/2025 2:20 PM CDT Plan of Treatment Upcoming Encounters Date Type Department Care Team (Late st Contact Info) Description 06/09/2025 10:20 AM CDT Telemedicine [address] [phone] Jocelyn Cabrera PA [address] [place] [phone] 10/14/2025 2:30 PM DIRECTOR OF DISTRIBUTION Office Visit [facility] [address] [place] [address] Doni Acosta MD [address] [place] [address] 12/06/2025 9:30 AM CDT Office Visit [facility] [address] [place] [address] Alondra Negrete MD [address] [place] [address] Health Maintenance Due Date Last Done Comments Hepatitis B series for 19+ ( 3 of 3 - 19+ 3-dose series) 06/30/2013 05/05/2013, 05/05/2013, 02/04/2013, Additional history exists Fecal testing sDNA-FIT ([place] guard) for age 45-75 12/24/2024 12/24/2021, 12/24/2021 Mammogram for age 45-75 11/02/2025 11/03/19, 10/24/2023, 06/11/2022, Additional history exists Medicare Wellness for age 65+ 06/05/2026, 05/11/2024, 05/06/2023, Additional history exists BMI (ht and wt on same day) for age 18+ 06/07/2026 06/07/2025, 06/04/2025, 05/11/2024, Additional history exists Depression screening for age 12+ 06/07/2026 06/07/2025, 06/04/2025, 05/13/2024, Additional history exists Lipids for age 45-75 03/01/2030 03/01/2025, 12/26/2022, 09/08/2021, Additional history exists Tetanus booster 05/29/2031 05/29/2021, 1108/2010, 10/25/2008 Zoster (shingles) series for age 50+ Completed 01/30/2018, 11/05/2017, 01/11/2015, Additional history exists Hepatitis C screening for ag e 18-79 Completed 07/20/2019 RSV vaccine for adults or Completed 05/08/2023 DEXA/DXA scan for age 65+ Completed 2023, 08/21/2018, 02/23/2011 COVID-19 vaccine series Completed 02/11/20, 04/27/2024, 05/16/2023, Additional history exists Pneumococcal series for age 50+ Completed 02/10/2025, 07/30/2019, 07/25/2018, Additional history exists Influenza Vaccine Completed 04/28/2025, , 05/06/2023, Additional history exists Medical Devices Implanted Type Area Blow Molder Device Identifier Shelf Expiration Date Model / Serial / Lot Murray Lmbr 70x5.5mm Tsrh 3d Cvd Titnm - [id number] Implanted:Qty: 2 on 09/12/2016 by Grzegorz Echavarria MBChB at [facility] Spine Implants N/A: Spine Medtronic Spine/Ortho [id number]# / / [id number] one 1-4mm 30cc Medtronic Chips Canclls Frozen Implanted:Qty: 1 on 09/12/2016 by Grzegorz Echavarria MBChB at [facility] Explanted:at [facility] (Quantity not on file) N/A: Spine Medtronic Spine/Ortho 01/08/2019 [id number]# / [id number] / [id number] one 1-4mm 30cc Medtronic Chips Canclls Frozen Implanted:Qty: 1 on 09/12/2016 by Grzegorz Ehcavarria MBChB at [facility] Explanted:at [facility] (Quantity not on file) N/A: Spine Medtronic Spine/Ortho 01/12/2019 [id number]# / [id number] / Dura Neuro 1x1in Duragen Plus Non-Sut - [id number] Implanted:Qty: 1 on 09/12/2016 by Grzegorz Echavarria MBChB at [facility] N/A: Spine Integra Lifesciences Naa 05/18/2019 [id number]# / / [id number] Set Screw Lmbr Tsrh 3dx - [id number] Implanted:Qty: 6 on 09/12/2016 by Grzegorz Echavarria MBChB at [facility] N/A: Spine Medtronic Spine/Ortho [id number]# / / Cnnctr Lmbr Sm Tsrh 3dx Offsettitnm - [id number] Implanted:Qty: 6 on 09/12/2016 by Grzegorz Echavarria MBChB at [facility] N/A: Spine Medtronic Spine/Ortho [id number]# / / Screw Lmbr Post 6.5x40mm Tsrh 3dx Og Thin Va - [id number] Implanted:Qty: 6 on 09/12/2016 by Grzegorz Echavarria MBChB at [facility] N/A: Spine Medtronic Spine/Ortho [id number] / / Procedures Procedure Name Priority Date/Time Associated Diagnosis Comments CBC WITH AUTO DIFFERENTIAL Routine 06/04/2025 11:42 AM CDT Gout, unspecified cause, unspecified chronicity, unspecified site HEMOGLOBIN A1C MONITORING (POCT) Routine 06/04/2025 11:42 AM CDT Type 2 diabetes mellitus without complication, with long-term current use of insulin (HC) CBC WITH AUTO DIFFERENTIAL Routine 06/04/2025 11:42 AM CDT Gout, unspecified cause, unspecified chronicity, unspecified site US LOWER EXTREMITY SOFT TISSUE LEFT Routine 05/07/2025 11:01 AM CDT Skin lump of leg, left LIPID PANEL W REFLEX MEASURED LDL Routine 03/01/2025 9:33 AM CDT Mixed hyperlipidemia XR MAMMO JAMES BILAT SCREEN Routine 11/02/2024 9:41 AM CDT Encounter for screening mammogram for malignant neoplasm of breast XR DXA BONE DENSITY 1 SITE AXIAL AND 1 SITE PERIPHERAL Routine 06/10/2024 9:22 AM CDT Menopause FECAL DNA (AKA COLOGUARD) Routine 12/24/2021 12:00 AM CDT Screening for colon cancer ANTI HCV Routine 07/20/2019 3:33 PM DIRECTOR OF DISTRIBUTION Need for hepatitis C screening test from Last 3 Months or Most Recently Relevant to Health Maintenance Results * (ABNORMAL) CBC WITH AUTO DIFFERENTIAL (06/04/2025 11:42 AM CDT) WHITE BLOOD CELL COUNT 6.1 3.8 - 10.8 Thousand/ uL 06/05/2025 3:53 AM CDT [facility] RED BLOOD CELL COUNT 4.87 3.80 - 5.10 Million/u L 06/05/2025 3:53 AM CDT [facility] HEMOGLOBIN 14.5 11.7 - 15.5 g/dL 06/05/2025 3:53 AM CDT [facility] HEMATOCRIT 45.8(H) 35.0 - 45.0 % 06/05/2025 3:53 AM CDT [facility] MCV 94.0 80.0 - 100.0 fL 06/05/2025 3:53 AM CDT [facility] MCH 29.8 27.0 - 33.0 pg 06/05/2025 3:53 AM CDT [facility] MCHC 31.7(L) 32.0 - 36.0 g/dL 06/05/2025 3:53 AM CDT [facility] Comment: For adults, a slight decrease in the calculated MCHC value (in the range of 30 to 32 g/dL) is most likely not clinically significant; however, it should be interpreted with caution in correlation with other red cell parameters and the patient's clinical condition. RDW 14.2 11.0 - 15.0 % 06/05/2025 3:53 AM CDT [facility] PLATELET COUNT 303 140 - 400 Thousand/ uL 06/05/2025 3:53 AM CDT [facility] MPV 10.2 7.5 - 12.5 fL 06/05/2025 3:53 AM CDT [facility] NEUTROPHILS 48.9 % 06/05/2025 3:53 AM CDT [facility] LYMPHOCYTES 29.7 % 06/05/2025 3:53 AM CDT [facility] MONOCYTES 13.5 % 06/05/2025 3:53 AM CDT [facility] EOSINOPHILS 6.4 % 06/05/2025 3:53 AM CDT [facility] BASOPHILS 1.5 % 06/05/2025 3:53 AM CDT [facility] ABSOLUTE NEUTROPHILS 2983 1500 - 7800 cells/uL 06/05/2025 3:53 AM CDT [facility] ABSOLUTE LYMPHOCYTES 1812 850 - 3900 cells/uL 06/05/2025 3:53 AM CDT [facility] ABSOLUTE MONOCYTES 824 200 - 950 cells/uL 06/05/2025 3:53 AM CDT [facility] ABSOLUTE EOSINOPHILS 390 15 - 500 cells/uL 06/05/2025 3:53 AM CDT [facility] ABSOLUTE BASOPHILS 92 0 - 200 cells/uL 06/05/2025 3:53 AM CDT [facility] Blood BLOOD SPECIMEN / Unknown [facility] / Unknown 06/04/2025 11:42 AM CDT 06/04/2025 11:42 AM CDT us Alondra Negrete MD HEMATOLOGY Final R esult Performing Organization Address [facility]/ZIP Co de Phone Number [facility] [address] [place] [address], [place] [phone] * (ABNORMAL) HEMOGLOBIN A1C MONITORING (POCT) (06/04/2025 11:42 AM CDT) POC HEMOGLOBIN A1C 7.3(H) <6.0 % OF TOTAL HGB 06/04/2025 11:57 AM CDT [facility] Comment: Any point of care results exhibiting inconsistency with the patient's clinical status should be repeated using a different testing method. Blood BLOOD SPECIMEN / Unknown [facility] / Unknown 06/04/2025 11:42 AM CDT 06/04/2025 11:42 AM CDT Alondra Negrete MD CHEMISTRY Final R esult Performing Organization Address [facility] Co de Phone Number [facility] [id number] [place] [address], [place] [phone] [facility] [address] [place] [address], [place] [phone] * US LOWER EXTREMITY SOFT TISSUE LEFT (05/07/2025 11:01 AM CDT) Anatomical Region Laterality Modality ARM R Ultrasound 05/07/2025 3:59 PM CDT Narrative 05/07/2025 3:59 PM CDT For Patients: As a result of the Century Cures Act, medical imaging exams and procedure reports are released immediately into your electronic medical record. You may view this report before your referring provider. If you have questions, please contact your health care provider. Indication: Skin lump Technique: Grayscale and color Doppler ultrasound of the left leg soft tissues performed in the area of concern. Comparison: None Findings: No fluid collection or mass. No abnormal vascularity. Impression: Negative targeted sonogram to the area of concern within the left leg. Dictated by Rangel August MD @ 05/07/2025 3:59:28 PM (Electronically Signed) Procedure Note Rangel August MD - 05/07/2025 For Patients: As a result of the Century Cures Act, medical imagingexams and procedure reports are released immediately into your electronicmedical record. You may view this report before your referring provider.If you have questions, please contact your health care provider. Indication: Skin lump Technique: Grayscale and color Doppler ultrasound of the left leg soft tissuesperformed in the area of concern. Comparison: None Findings: No fluid collection or mass. No abnormal vascularity. Impression: Negative targeted sonogram to the area of concern within the left leg. Dictated by Rangel August MD @ 05/07/2025 3:59:28 PM (Electronically Signed) us Teresa Whyte MD Final R esult * (ABNORMAL) LIPID PANEL W REFLEX MEASURED LDL (03/01/2025 9:33 AM CDT) CHOLESTEROL, TOTAL 144 <200 mg/dL [facility] HDL CHOLESTEROL 35(L) > OR = 50 mg/dL [facility] TRIGLYCERIDES 141 <150 mg/dL [facility] LDL-CHOLESTEROL 85 mg/dL (calc) [facility] Comment: Reference range: <100 Desirable range <100 mg/dL for primary prevention; <70 mg/dL for patients with CHD or diabetic patients with > or = 2 CHD risk factors. LDL-C is now calculated using the Jad calculation, which is a validated novel method providing better accuracy than the Friedewald equation in the estimation of LDL-C. Pérez VANEGAS et al. LUIGI. 2013;310(19): 8032-1616 (http://education.Mob[employer]ix.Spot[employer] Reporting Technologies/faq/ZFR193) CHOL/HDLC RATIO 4.1 <5.0 (calc) [facility] NON HDL CHOLESTEROL 109 <130 mg/dL (calc) [facility] Comment: For patients with diabetes plus 1 major ASCVD risk factor, treating to a non-HDL-C goal of <100 mg/dL (LDL-C of <70 mg/dL) is considered a therapeutic option. Blood BLOOD SPECIMEN / Unknown 03/01/2025 9:33 AM CDT 03/01/2025 9:33 AM CDT Alondra Negrete MD CHEMISTRY Final R esult [facility] [address] [place] [address], [facility] [address] [place] [address] * XR MAMMO JAMES BILAT SCREEN (11/02/2024 [...] care provider. XR MAMMO JAMES BILAT SCREEN [[id number]] CLINICAL HISTORY: This is an asymptomatic 69 y.o. patient. INDICATION FOR EXAM: Mammogram Screening. TECHNIQUE: CC and MLO views were obtained. This study was evaluated with the assistance of Computer-Aided Detection. Breast Tomosynthesis was used in interpretation. COMPARISON FILM: Yes 10/24/23 [facility] 06/11/22 [facility] FINDINGS: There are scattered areas of fibroglandular [...] recommended in 3-5 years. Cydney Smith PA-C [facility] 06/12/2024 Narrative 06/12/2024 4:10 PM CDT For Patients: Results are automatically released to your [email or web address] account once available, in compliance with federal regulations. This means that you may see your results before your provider has had a chance to review them. Please allow 2-3 business days for your provider to comment on the results. XR DXA Bone Mineral Density (BMD) EXAM LOCATION: [address] [address] PATIENT NAME: Jessica Gutiérrez DATE OF : [...] two scanners are made by the same observer helper. PROCEDURE: Dual-energy x-ray absorptiometry performed with routine [...] Negrete MD DEXA Final R esult * FECAL DNA (AKA COLOGUARD) (12/24/2021 12:00 AM CDT) us Alondra Negrete MD COMMUNICATION ORD Edite d Result - Final * ANTI HCV (07/20/2019 3:33 PM DIRECTOR OF DISTRIBUTION) Pathologist [facility] HEPATITIS C ANTIBODY Non-React tashi Non-React tashi 07/21/2019 2:13 PM DIRECTOR OF DISTRIBUTION [facility] Comment:Antibodies to HCV no t detected; does not exclude the possibility of exposure to HCV. Blood BLOOD SPECIMEN / Unknown Venipuncture / Unknown 07/20/2019 3:33 PM DIRECTOR OF DISTRIBUTION 07/20/2019 3:33 PM DIRECTOR OF DISTRIBUTION Alondra Negrete MD SEND OUTS Final R esult [facility] 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 Solvent Process Expl anation POLST 03/25/2019 10:48 AM GIGI BERNSTEIN, 03/24/19 Healthcare Directive 09/14/2016 2:33 PM ELOISA LEÓN, 08/11/2016 * Full Code (Latest Code Status on File) Date Activated Date Inactivated Comments 09/12/2016 7:25 PM 09/15/2016 12:58 PM * Full Code Date Activated Date Inactivated Comments 09/12/2016 6:35 AM 09/12/2016 5:05 PM Question Answer Comments Code Status Discussion: Not Discussed Care Teams Layout Operator Relationship Specialty Start Date End Date Alondra Negrete MD [address] [place] [address] PCP - General Family Practice 05/05/25 Rangel Nelson Burr Sander 02/11/12 Kathy Campo RN [address] [facility] [address] [place] [address] Study Abroad Coordinator - [facility] Registered Nurse 06/19/18 Yanet Burt RN [address] [facility] [place] [address] Study Abroad Coordinator - [facility] Registered Nurse 06/19/18 Aliyah Hillman RN [address] [facility] [address] [place] [address] Study Abroad Coordinator - [facility] Registered Nurse 06/08/21
[2025-06-08 15:28] VITALS: BP 114/77; PULSE 79; RESP 20; TEMP 36.8; O2SAT 98; BMI 47.2
--- NOTE | 2025-06-08 16:44 | ED.GENADULT ---
HPI - General Adult General Date Seen: 06/08/25 Chief complaint: Back Injury/Pain Stated complaint: Sciatica nerve pain Time Seen by Provider: 06/08/25 16:43 History of Present Illness HPI narrative: 69-year-old female with a past medical history per her liner record that includes spinal stenosis of her lumbar spine, spondylolisthesis of her lumbar spine, chronic kidney disease, hypertension, diabetes, peripheral neuropathy, history of PE, hyperlipidemia, elevated BMI, carpal tunnel syndrome, gout, iron deficiency anemia. Per [facility] current medications include Acetaminophen Allopurinol Baby aspirin atorvastatin Topical capsaicin Cyanocobalamin Duloxetine Fluticasone furosemide Insulin aspart Insulin glargine Loratadine Placenta process drops Losartan Montelukast monjauro Montelukast Pregabalin Senna Patient reports that she has a known history of low back pain and did have a lumbar surgery about 8 years ago done by a back surgeon at [facility]. That operation was complicated by an injury to 1 of the nerve roots affecting her right leg and ever since then she has had trouble with chronic low back pain and right leg sciatica. It sounds like for a long time after surgery she had a footdrop and required a orthotic brace but she is able to get herself out of that. For the past few years she has been dealing with low back pain as well as some pain radiating down her right leg. She generally ambulates with a walker because of her poor balance but does not use an orthotic. She has been managing her chronic pain with Tylenol, gabapentin, now Lyrica. She had previously been on oxycodone but her doctors took her off that. She has no recent injury or other recent illness. However when she woke up this morning she was having a flare of back pain as well as pain radiating from her back to her right lateral hip and down the lateral thigh. It is much worse than normal today. She does not have any recent fall. No injury. No numbness or weakness in her leg but she is having pain. Bowel and bladder function are normal. No fever or chills. No pain in her left leg. No upper back pain. She called her primary care clinic to see if she get an appointment with her PCP, Dr. Negrete. However her PCP is not in clinic today and there were no other open slots for add on patient visits. The surgery scheduler from the primary care clinic told her to come to the ER. She came to the ER at 3:00 a.m. today after her son was able to give her ride. Related Data Home Medications ?Medication ?Instructions ?Recorded ?Confirmed acetaminophen 500 mg tablet mg PO PRN 04/12/22 12/15/24 allopurinol 100 mg tablet 100 mg PO DAILY 04/12/22 12/15/24 ascorbic acid (vitamin C) PO 04/12/22 12/15/24 aspirin 81 mg chewable tablet 81 mg PO DAILY 04/12/22 12/15/24 atorvastatin 40 mg tablet 40 mg PO .Bedtime 04/12/22 12/15/24 beclomethasone dipropionate 40 2 inhalation DAILY 04/12/22 12/15/24 mcg/actuation HFA breath activated aerosol dulaglutide 1.5 mg/0.5 mL 1.5 mg subcut .Every 7 Days 04/12/22 12/15/24 subcutaneous pen injector duloxetine 20 mg capsule,delayed 20 mg PO DAILY 04/12/22 12/15/24 release ferrous sulfate 325 mg (65 mg mg PO DAILY 04/12/22 12/15/24 iron) tablet fluticasone propionate 50 2 intranasal DAILY 04/12/22 12/15/24 mcg/actuation nasal spray,suspension furosemide 20 mg tablet 20 mg PO BID 04/12/22 12/15/24 insulin aspart U-100 100 unit/mL 14 subcut 04/12/22 12/15/24 (3 mL) subcutaneous pen insulin glargine U-300 conc 300 52 unit subcut BID 04/12/22 12/15/24 unit/mL (1.5 mL) subcutaneous pen ketorolac 10 mg tablet mg PO PRN 04/12/22 12/15/24 losartan 50 mg tablet 50 mg PO DAILY 04/12/22 12/15/24 meloxicam 7.5 mg tablet 7.5 mg PO DAILY 04/12/22 12/15/24 montelukast 10 mg tablet 10 mg PO .Bedtime 04/12/22 12/15/24 pregabalin 100 mg capsule 100 mg PO TID 04/12/22 12/15/24 vitamin A 2,400 mcg capsule 8,000 unit PO DAILY 04/12/22 12/15/24 zinc sulfate 50 mg zinc (220 mg) mg PO DAILY 04/12/22 12/15/24 capsule acetaminophen 650 mg 1,300 mg PO BID 02/03/23 12/15/24 tablet,extended release allopurinol 300 mg tablet 300 mg PO DAILY 02/03/23 12/15/24 azelastine 137 mcg (0.1 %) nasal intranasal 02/03/23 12/15/24 spray blood sugar diagnostic (OneTouch 02/03/23 12/15/24 Verio test strips) buspirone 5 mg tablet 5 mg PO BID 02/03/23 12/15/24 capsaicin 0.075 % topical cream applic topical 02/03/23 12/15/24 (Arthritis Pain Relief (capsaicin)) cyanocobalamin (vitamin B-12) 1,000 mcg PO DAILY 02/03/23 12/15/24 1,000 mcg tablet (Vitamin B-12) dulaglutide 0.75 mg/0.5 mL 0.75 mg subcut 02/03/23 12/15/24 subcutaneous pen injector (Trulicity) duloxetine 60 mg capsule,delayed 60 mg PO DAILY 02/03/23 12/15/24 release loratadine 10 mg tablet 10 mg PO DAILY 02/03/23 12/15/24 pregabalin 150 mg capsule 150 mg PO 3XD 02/03/23 12/15/24 Previous Rx's ?Medication ?Instructions ?Recorded cephalexin 500 mg capsule 2,000 mg (4 x 500 mg) PO ONCE #4 10/28/23 caps loperamide 2 mg capsule (Imodium 2 mg PO QID PRN loose stool #30 04/25/24 A-D) caps cyclobenzaprine 5 mg tablet 5 mg PO TID PRN muscle spasm #10 06/08/25 tabs oxycodone 5 mg capsule 5 - 10 mg (1 - 2 x 5 mg) PO Q6H 06/08/25 PRN pain #10 caps Allergies Allergy/AdvReac Type Severity Reaction Status Date / Time adhesive AdvReac Verified 12/15/24 10:15 lisinopril AdvReac Cough Verified 12/15/24 10:15 Penicillins AdvReac Verified 12/15/24 10:15 Sulfa (Sulfonamide AdvReac itchy Verified 12/15/24 10:15 Antibiotics) PFSH PFSH Medical History Fracture of fifth metatarsal bone ?S92.353A - Displaced fracture of fifth metatarsal bone, unspecified foot, initial encounter for closed fracture (ICD-10) Encounter for counseling regarding advance directives (08/11/16) ?Z71.89 - Other specified counseling (ICD-10) VTE (venous thromboembolism) (~2005) ?I82.90 - Acute embolism and thrombosis of unspecified vein (ICD-10) Depression ?F32.A - Depression, unspecified (ICD-10) Incontinence ?R32 - Unspecified urinary incontinence (ICD-10) DVT (deep venous thrombosis) ?I82.409 - Acute embolism and thrombosis of unspecified deep veins of unspecified lower extremity (ICD-10) Surgical History History of arthroscopy of right knee (09/30/95) ?Z98.890 - Other specified postprocedural states (ICD-10) Status post osteotomy (01/04/99) ?Z98.890 - Other specified postprocedural states (ICD-10) History of incision and drainage (01/09/07) ?Z98.890 - Other specified postprocedural states (ICD-10) H/O nasal septoplasty ?Z98.890 - Other specified postprocedural states (ICD-10) 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) ?Z98.890 - Other specified postprocedural states (ICD-10) History of arthroscopy of right shoulder (03/09/19) ?Z98.890 - Other specified postprocedural states (ICD-10) History of reverse total replacement of right shoulder joint (12/12/20) ?Z98.890 - Other specified postprocedural states (ICD-10) History of lumbar fusion (~2016) ?Z98.1 - Arthrodesis status (ICD-10) History of total right knee replacement (12/18/06) ?Z96.651 - Presence of right artificial knee joint (ICD-10) H/O endoscopy ?Z98.890 - Other specified postprocedural states (ICD-10) History of cholecystectomy ?Z90.49 - Acquired absence of other specified parts of digestive tract (ICD-10) History of appendectomy ?Z90.49 - Acquired absence of other specified parts of digestive tract (ICD-10) History of total left knee replacement (07/17/06) ?Z96.652 - Presence of left artificial knee joint (ICD-10) Family History Mother Congenital heart disease Diabetes Father No problems noted. Brother Prostate cancer Stroke Sister Myocardial infarction High blood pressure Social History Smoking Status: Former smoker Do you use any of these nicotine containing products: None Second hand tobacco smoke exposure: No How often do you have a drink containing alcohol: never How often do you have six or more drinks on one occasion: Never AUDIT-C Alcohol total score: 0 Non-prescribed substance use: denies use service: No Exam Narrative: Exam Narrative: Constitutional: Appears well-developed and over-nourished. Alert. Conversant. Non toxic. Very polite. HENT: Head: Atraumatic. Nose: Nose normal. Mouth/Throat: Oral mucosa is clear and moist. no trismus. Eyes: Conjunctivae normal. EOM normal. Pupils equal, round, and reactive to light. No scleral icterus. Neck: Normal range of motion. Neck supple. No tracheal deviation present. Cardiovascular: Normal rate, regular rhythm. No gallop. No friction rub. No murmur heard. Symmetric radial artery pulses Pulmonary/Chest: Effort normal. No stridor. No respiratory distress. Musculoskeletal: RUE: Normal range of motion. No tenderness. No deformity LUE: Normal range of motion. No tenderness. No deformity Normal inspection of her low back. Healed midline lower lumbar incision. No midline step-off or tenderness. No pelvic or SI joint step-off or tenderness. No bruising. No redness. No rash. RLE: Normal range of motion. No edema. No tenderness. No deformity LLE: Normal range of motion. No edema. No tenderness. No deformity Neurological: Alert and oriented to person, place, and time. Normal strength. CN II-VII intact. No sensory deficit. GCS eye subscore is 4. GCS verbal subscore is 5. GCS motor subscore is 6. Normal coordination Sensory: Normal light touch sensation bilaterally on the anteromedial thigh (L3), medial malleolus (L4), lateral malleolus (S1). She does have some chronic subjective paresthesias in both of her feet due to her diabetic neuropathy. Strength: 5/5 strength hip flexors (L3) on the right and left 5/5 strength in the quadriceps (L4) on the right and left 5/5 strength in the tibialis anterior 5/5 strength in the EHL (L5) on the right and left 5/5 strength in the gastrocnemius (S1) on the right and left 5/5 strength in the hamstring on the right and left Negative straight leg raise bilaterally. Skin: Skin is warm and dry. No rash noted. No pallor. Normal capillary refill. Psychiatric: Normal mood. Normal affect. Const: Vital Signs, click to edit/add: Vital Signs - 24 hr 06/08/25 15:28 Temperature 98.3 F Pulse Rate [Pulse Oximeter] 79 Respiratory Rate 20 Blood Pressure [Ri ght Upper Arm] 114/77 Pulse Oximetry 98 Oxygen Delivery Me thod Room Air Course Vital Signs Vital signs: Initial Vital Signs Temperature 98.3 F 06/08/25 15:28 Temperature Source Temporal Artery Scan 06/08/25 15:28 Pulse Rate 79 06/08/25 15:28 Respiratory Rate 20 06/08/25 15:28 Blood Pressure 114/77 06/08/25 15:28 Blood Pressure Mean 89 06/08/25 15:28 Blood Pressure Position Sitting 06/08/25 15:28 Pulse Oximetry 98 06/08/25 15:28 Oxygen Delivery Method Room Air 06/08/25 15:28 Vital Signs Temperature 98.3 F 06/08/25 15:28 Pulse Rate 79 06/08/25 15:28 Respiratory Rate 20 06/08/25 15:28 Blood Pressure 114/77 06/08/25 15:28 Pulse Oximetry 98 06/08/25 15:28 Oxygen Delivery Method Room Air 06/08/25 15:28 Temperature 98.3 F 06/08/25 15:28 Pulse Rate 79 06/08/25 15:28 Respiratory Rate 20 06/08/25 15:28 Blood Pressure 114/77 06/08/25 15:28 Pulse Oximetry 98 06/08/25 15:28 Oxygen Delivery Method Room Air 06/08/25 15:28 Medications Administered Medications: Discontinued Medications Generic Name Dose Route Start Last Admin Trade Name Fili BELLN Reason Stop Dose Admin Cyclobenzaprine HCl 10 mg 06/08/25 17:12 06/08/25 17:22 Cyclobenzaprine Hcl 10 Mg Tablet PO 06/08/25 17:13 10 mg ONCE ONE Administration Oxycodone HCl 5 mg 06/08/25 17:12 06/08/25 17:22 Oxycodone 5 Mg Tablet PO 06/08/25 17:13 5 mg ONCE ONE Administration Medical Decision Making MDM Narrative Medical decision making narrative: This patient presented with back pain. Broad differential considered. The patient did not sustain any trauma, therefore x-rays are not necessary due to the low likelihood of fracture or subluxation. She does have a chronic history of low back pain and right-sided sciatica for at least the past 8 years. No clear trigger but it seems like her pain is flaring up today. Her PCP was not able to get her in clinic so they referred here to the ER. No red flag symptoms to suggest CT and/or MRI is indicated at this point. The patient has not had a fever, saddle/perineal anesthesia, bilateral foot numbness, or bowel or bladder dysfunction. There is no clinical evidence of cauda equina syndrome, discitis, spinal/epidural space hematoma or epidural abscess. The neurological exam is normal and the patient's symptoms seem consistent with a musculoskeletal issues and significant muscle spasm. Pain has improved with interventions in the emergency department. In discussion with the patient, we will try her on a short course of oxycodone and muscle relaxer for the next couple of days to see if we can get this flared calm down. Patient understands that we cannot put her on long-term opiates through the ER and that she needs close follow-up with her primary care doctor. The patient will be discharged with pain medications to use as directed. Prescription for Flexeril sent to her pharmacy. However her pharmacy did not have oxycodone in stock so she requested that I send a prescription for oxycodone to the [facility] here in [place]. Ice or heat to the back and stretching exercises. No heavy lifting, bending or twisting. Return if increasing pain, numbness, weakness, or bowel or bladder dysfunction. The patient was advised to schedule follow-up with their primary doctor within 2-3 days to re-assess symptoms. Return precautions reviewed and questions answered. Discharge Plan Discharge Clinical Impression: Acute exacerbation of chronic low back pain, Acute pain of right hip Patient Disposition: Home, Self-Care Condition: Stable Instructions: Acute Low Back Pain (ED) Additional Instructions: As we discussed, please call your clinic tomorrow morning to arrange an ER follow-up visit with her primary care provider by Saturday. If you have worsening or severe uncontrolled pain, and weakness of your right leg, bowel or bladder disturbance, high fever, or any concerns, please return to the ER immediately. Use your regular pain medications for pain control 1st. Use the prescription muscle relaxers (Flexeril) and prescription pain killers (oxycodone) only if needed for pain uncontrolled by your other meds. Be careful because these medications cause dizziness, drowsiness, and can be addictive. Prescriptions: New cyclobenzaprine 5 mg tablet 5 mg PO TID PRN (Reason: muscle spasm) Qty: 10 0RF oxycodone 5 mg capsule 5 - 10 mg PO Q6H PRN (Reason: pain) Qty: 10 0RF No Action beclomethasone dipropionate 40 mcg/actuation HFA aerosol breath activated 2 inhalation DAILY insulin glargine U-300 conc 300 unit/mL (1.5 mL) insulin pen 52 unit subcut BID dulaglutide 1.5 mg/0.5 mL pen injector 1.5 mg subcut .Every 7 Days Rx Instructions: pregabalin 100 mg capsule 100 mg PO TID duloxetine 20 mg capsule,delayed release(DR/EC) 20 mg PO DAILY insulin aspart U-100 100 unit/mL (3 mL) insulin pen 14 subcut Rx Instructions: BREAKFAST AND SUPPER fluticasone propionate 50 mcg/actuation spray,suspension 2 intranasal DAILY furosemide 20 mg tablet 20 mg PO BID montelukast 10 mg tablet 10 mg PO .Bedtime aspirin 81 mg tablet,chewable 81 mg PO DAILY ferrous sulfate 325 mg (65 mg iron) tablet PO DAILY meloxicam 7.5 mg tablet 7.5 mg PO DAILY acetaminophen 500 mg tablet PO PRN allopurinol 100 mg tablet 100 mg PO DAILY vitamin A 2,400 mcg capsule 8,000 unit PO DAILY atorvastatin 40 mg tablet 40 mg PO .Bedtime losartan 50 mg tablet 50 mg PO DAILY ketorolac 10 mg tablet PO PRN zinc sulfate 50 mg zinc (220 mg) capsule PO DAILY ascorbic acid (vitamin C) PO loperamide [Imodium A-D] 2 mg capsule 2 mg PO QID PRN (Reason: loose stool) Qty: 30 0RF buspirone 5 mg tablet 5 mg PO BID cyanocobalamin (vitamin B-12) [Vitamin B-12] 1,000 mcg tablet 1,000 mcg PO DAILY capsaicin [Arthritis Pain Relief(capsaic)] 0.075 % cream topical (DME) OneTouch Verio test strips Strip MISCELLANEOUS 3XD acetaminophen 650 mg tablet extended release 1,300 mg PO BID allopurinol 300 mg tablet 300 mg PO DAILY azelastine 137 mcg (0.1 %) aerosol,spray INTRANASAL Patient Comments: [NO ORIGINAL SIG] loratadine 10 mg tablet 10 mg PO DAILY duloxetine 60 mg capsule,delayed release(DR/EC) 60 mg PO DAILY pregabalin 150 mg capsule 150 mg PO 3XD Trulicity 0.75 mg/0.5 mL pen injector 0.75 mg subcut cephalexin 500 mg capsule 2,000 mg PO ONCE Qty: 4 3RF Rx Instructions: Take 4 capsules (2000mg) 1 hour prior to dental appointment. Follow Up/Referrals: Alondra Negrete MD [Primary Care Provider, Family Practice] Stand Alone Forms: [facility] Info Instructions
[2025-06-08] MEDS: CYCLOBENZAPRINE HCL 10 MG TABLET PO (17:22)
--- OUTSIDE RECORDS SUMMARY | 2025-06-08 17:24 | XMS_ITS | Clinical Summary ---
Author Organization [facility] Address [address] , [address] [place] [address] Phone Care Team Providers Care Sales Relationship Manager Name Role Phone Print, Print Unavailable Conditions or Problems Problem Name Problem Code Onset Date Status Entry Date Provider Comment Standard Description Annotate Cancer metastatic to bone 68370749 (SNOMED CT) 10/12 Resolved 10/12 Marcela Hicks PA-C Metastatic malignant neoplasm to bone Cancer metastatic to bone 76971605 (SNOMED CT) 10/12 Removed 10/12 Shruthi Cluka SWATCHER (AAMA) Metastatic malignant neoplasm to bone Kidney mass 032412057 (SNOMED CT) 10/12 Active 10/12 Shruthi Cluka SWATCHER (AAMA) Renal mass Abnormal magnetic resonance imaging (MRI) 369160037 (SNOMED CT) 10/12 Active 10/12 Shruthi Cluka SWATCHER (AAMA) MRI scan abnormal Low back pain, chronic 664848159 (SNOMED CT) 09/27 Active 09/27 Rosy Button-Jackie gher SWATCHER Chronic low back pain Lumbar radiculopat hy, right 937745757 (SNOMED CT) 09/27 Active 09/27 Rosy Button-Jackie gher SWATCHER Lumbar radiculopathy Diabetic peripheral neuropathy associated with type 2 diabetes mellitus [id number] 07 (SNOMED CT) 10/31 Active 10/31 Elise Mancuso PA-C Peripheral neuropathy due to type 2 diabetes mellitus Leg pain 45325632 (SNOMED CT) 10/04 Active 10/04 Nathan Brock MD Pain in lower limb Carpal tunnel syndrome, [facility]50363 [facility] 10/04 Active 10/04 Nathan Brock MD Carpal tunnel syndrome Medications Medication Instructions Start Date Stop Date Generic Name NDC Provider DULOXETINE HCL 60 MG CPEP TAKE ONE CAPSULE BY MOUTH EVERY DAY duloxetine [id number] Marcela MUNGUIA-Letitia DULOXETINE HCL 60 MG CPEP TAKE ONE CAPSULE BY MOUTH ONCE DAILY duloxetine 49580422476 Marcela MUNGUAI-[place] DULOXETINE HCL 60 MG CPEP 60 mg by mouth once a day duloxetine 02856819080 Zofia MUNGUIA-[place]itia DULOXETINE HCL 60 MG CPEP TAKE ONE CAPSULE BY MOUTH EVERY DAY duloxetine 89926829828 Zofia Fernandez PA-C PREGABALIN 150 MG CAPS Take 1 cap (150 mg) by mouth three times a day. pregabalin 16168602288 Marcela Hicks PA-C PREGABALIN 150 MG CAPS TAKE ONE CAPSULE BY MOUTH THREE TIMES A DAY pregabalin 80273387958 Nathan Brock MD PREGABALIN 150 MG CAPS Take 1 cap (150 mg) by mouth three times a day. pregabalin 13247667092 Marcela Hicks PA-C PREGABALIN 100 MG CAPS pregabalin 61555089224 Nathan Brock MD DULOXETINE HCL 30 MG CPEP duloxetine 28404415902 Nathan Brock MD DULOXETINE HCL 60 MG CPEP 60 mg by mouth once a day duloxetine 95103393468 Nathan Brock MD DULOXETINE HCL 20 MG CPEP duloxetine 62500548672 Nathan Brock MD FLUOXETINE HCL 20 MG CAPS fluoxetine 51345500679 Nathan Brock MD LOSARTAN POTASSIUM-HCTZ 50-12.5 MG TABS losartan-hydroc hlorothiazide 70669309678 Nathan Brock MD Novolog U-100 Insulin aspart 100 unit/mL solution insulin aspart u-100 [id number] Nathan Brock MD ATORVASTATIN CALCIUM 40 MG TABS atorvastatin 97426720972 Nathan Brock MD LANTUS SOLOSTAR 100 UNIT/ML SOPN insulin glargine 61749229861 Nathan Brock MD FERROUS SULFATE 325 (65 Fe) MG TABS ferrous sulfate 59715472181 Nathan Brock MD AMLODIPINE BESYLATE 5 MG TABS amlodipine 25425185089 Nathan Brock MD METFORMIN HCL 1000 MG TABS metformin 53430783923 Nathan Brock MD GABAPENTIN 300 MG CAPS 600 mg TID gabapentin 46217538646 Nathan Brock MD FLUOXETINE HCL 40 MG CAPS fluoxetine 53096410406 Nathan Brock MD TRULICITY 0.75 MG/0.5ML SOAJ dulaglutide 47524343494 Nathan Brock MD LYRICA 50 MG CAPS 1 cap by mouth two times per day for diabetic peripheral neuropathy. pregabalin [id number] Nathan Brock MD TRULICITY 3 MG/0.5ML SOAJ dulaglutide [id number] Nathan Brock MD TOUJEO SOLOSTAR 300 UNIT/ML SOPN insulin glargine u-300 conc 88923352466 Nathan Brock MD FEROSUL 325 (65 Fe) MG TABS ferrous sulfate 56301568289 Nathan Brock MD PREGABALIN 100 MG CAPS pregabalin 89329589504 Nathan Brock MD DULOXETINE HCL 20 MG CPEP duloxetine 07875451985 Nathan Brock MD DULOXETINE HCL 30 MG CPEP duloxetine 06235167728 Nathan Brock MD FLUOXETINE HCL 20 MG CAPS fluoxetine 84023658868 Nathan Brock MD FUROSEMIDE 20 MG TABS furosemide 81864762905 Nathan Brock MD aspirin 81 mg tablet,chewable aspirin [id number] Nathan Brock MD LORATADINE 10 MG TABS loratadine 13911603932 Nathan Brock MD FLUTICASONE PROPIONATE 50 MCG/ACT SUSP fluticasone propionate 49319217937 Nathan Brock MD AZELASTINE HCL 0.1 % SOLN azelastine 78242030446 Nathan Brock MD MONTELUKAST SODIUM 10 MG TABS montelukast 79464841872 Nathan Brock MD ALLOPURINOL 100 MG TABS allopurinol 04894972295 Nathan Brock MD LOSARTAN POTASSIUM 50 MG TABS losartan 75451050538 Nathan Brock MD ATORVASTATIN CALCIUM 40 MG TABS atorvastatin 54247918303 Nathan Brock MD LYRICA 50 MG CAPS 1 cap by mouth two times per day for diabetic peripheral neuropathy. PREGABALIN 09592421068 Elise Mancuso PA-C GABAPENTIN 300 MG CAPS 600 mg TID GABAPENTIN 78010385306 Nathan Brock MD GABAPENTIN 300 MG CAPS 1 cap by mouth three times per day for peripheral neuropathy. GABAPENTIN 72524771795 Elise Mancuso PA-C LOSARTAN POTASSIUM-HCTZ 50-12.5 MG TABS LOSARTAN POTASSIUM-HCTZ 39509995136 Nathan Brock MD AMLODIPINE BESYLATE 5 MG TABS AMLODIPINE BESYLATE 61978768914 Nathan Brock MD NOVOLOG 100 UNIT/ML SUBCUTANEOUS SOLUTION INSULIN ASPART [id number] Nathan Brock MD METFORMIN HCL 1000 MG TABS METFORMIN HCL 49188420280 Nathan Brock MD FLUOXETINE HCL 40 MG CAPS FLUOXETINE HCL 38231505457 Nathan Brock MD ATORVASTATIN CALCIUM 40 MG TABS ATORVASTATIN CALCIUM [id number] Nathan Brock MD TRULICITY 0.75 MG/0.5ML SOAJ DULAGLUTIDE [id number] Nathan Brock MD LANTUS SOLOSTAR 100 UNIT/ML SOPN INSULIN GLARGINE 15607136957 Nathan Brock MD GABAPENTIN 300 MG CAPS GABAPENTIN 12974079121 Nathan Brock MD FERROUS SULFATE 325 (65 Fe) MG TABS FERROUS SULFATE 65807340262 Nathan Brock MD Medications Administered No information [...] Entry Date ORDERS Instructions for Staff 02/05 [id number] EPI-Lumbar Epidural Steroid Injection 202 09/24/19 [id number] EPI-Lumbar Epidural Steroid Injection 202 09/23/29 [facility]-[id number] Documentation of current medicatio ns ORDERS Follow up [id number] Other Referral ORDERS Physical Therapy ORDERS Follow up [id number] MRI-Lumbar W/O ORDERS Follow up [facility] after testing ORDERS EMG bilateral low ext 08/22 CPT-62188 Nerve Conduction 7-8 studies CPT-58263 EMG with NCS (5+ muscles) - 1 limb 09/13 CPT-91132 EMG with NCS (4 or fewer muscles) - 1 kim b [facility]-[id number] Documentation of current medicatio ns ORDERS Follow up ORDERS Follow up ORDERS Patient Instructions ORDERS Patient Instructions [facility]-[id number] Documentation of current medicatio ns ORDERS Ferritin Serum ORDERS Follow up ORDERS Patient Instructions [facility]-[id number] Documentation of current medicatio ns ORDERS Patient Notification ORDERS Transition of Care Referral [facility]-[id number] Other Test ORDERS Ferritin Serum Vital Signs [...]
== END 2025-06-08 17:38 | disposition home or self-care (01) ==
LOC: ED 17:22
PROVIDERS: Emergency Provider Emergency Medicine; PCP Family Medicine
DX: M54.41 Lumbago with sciatica, right side (principal); G89.29 Other chronic pain
CPT/HCPCS: 99283; 99284; A9270

== ENCOUNTER 2025-06-15 11:47 | Outpatient (RCR) | payer OTHER, SELFPAY | END 2025-08-16 15:23 | disposition home or self-care (01) | PROVIDERS: PCP Family Medicine; Visit Provider Family Medicine | DX: M48.061 Spinal stenosis, lumbar region without neurogenic claudication (principal); M54.41 Lumbago with sciatica, right side; G89.29 Other chronic pain; Z51.89 Encounter for other specified aftercare | CPT/HCPCS: 97110; 97140; 97162 ==